=== PATIENT | male | born 1940 | race Caucasian/White ===

== ENCOUNTER → 2019-10-27 11:44 | Outpatient (BNVA) | payer MEDICARE, SELFPAY | PROVIDERS: PCP Physician Assistant Medical; Visit Provider Nurse Practitioner Family | DX: N13.8 Other obstructive and reflux uropathy (principal); N40.1 Benign prostatic hyperplasia with lower urinary tract symptoms; R30.0 Dysuria; N41.1 Chronic prostatitis | CPT/HCPCS: 80053; 81001 ==

== ENCOUNTER → 2020-05-01 13:01 | Outpatient (BNVA) | payer MEDICARE, SELFPAY | PROVIDERS: PCP Physician Assistant Medical; Visit Provider Urology | DX: N40.1 Benign prostatic hyperplasia with lower urinary tract symptoms (principal); N13.8 Other obstructive and reflux uropathy; N41.1 Chronic prostatitis | CPT/HCPCS: 81003 ==

== ENCOUNTER → 2021-05-06 13:26 | Outpatient (BNVA) | payer MEDICARE, SELFPAY | PROVIDERS: PCP Physician Assistant Medical; Visit Provider Urology | DX: N40.1 Benign prostatic hyperplasia with lower urinary tract symptoms (principal); N13.8 Other obstructive and reflux uropathy | CPT/HCPCS: 81003 ==

== ENCOUNTER → 2021-11-04 13:49 | Outpatient (BNVA) | payer MEDICARE, SELFPAY | PROVIDERS: PCP Registered Nurse; Visit Provider Urology | DX: N40.1 Benign prostatic hyperplasia with lower urinary tract symptoms (principal); N13.8 Other obstructive and reflux uropathy; N41.1 Chronic prostatitis | CPT/HCPCS: 51798; 81003; 99213 ==

== ENCOUNTER 2023-07-29 11:19 | Inpatient (IN) | payer MEDICARE, MEDICAID, SELFPAY ==
[2023-07-29 11:21] VITALS: BP 93/60; PULSE 95; RESP 18; TEMP 37.5; O2SAT 94; BMI 28.8
--- NOTE | 2023-07-29 11:25 | XRR_ITS ---
PROCEDURE INFORMATION: Exam: XR Chest Exam date and time: 07/29/2023 12:22 PM Age: 82 years old Clinical indication: Cough and dyspnea; Additional info: Dyspnea/cough TECHNIQUE: Imaging protocol: Radiologic exam of the chest. Views: 1 view. COMPARISON: [place] [id number] 07/29/2023 12:22 PM FINDINGS: Lungs: Scattered tiny nodules are seen in the upper lungs bilaterally. There is a 5 mm nodule projecting over the right lower lung. There is 6 mm nodule projecting over the left mid lung. There is no focal consolidation. There is hazy opacity projecting over the lower lungs bilaterally. Pleural spaces: There is no pleural effusion or pneumothorax. Heart/Mediastinum: Cardiomediastinal contours are unremarkable. Bones/joints: There is a healed right lateral 6th rib fracture. XR/XR chest 1V portable [id number] IMPRESSION: 1. Hazy opacity projecting over the lower lungs bilaterally may represent soft tissue density overlying the chest versus infection, atelectasis or pleural fluid. Recommend follow-up PA and lateral chest radiographs. 2. Scattered bilateral pulmonary nodules. Recommend nonemergent chest CT.
[2023-07-29 11:38] LABS: Glucose Point of Care 424 mg/dL (70-110)
--- NOTE | 2023-07-29 11:41 | ED_ITS ---
HPI - Fall 2 General: Chief Complaint: Fall Stated Complaint: hyperglycemia, fall 2 days Time Seen by Provider: 07/29/23 11:21 Source: patient Mode of arrival: EMS History of Present Illness: 82-year-old male presents emergency room via EMS he fell 2 days ago and has been laying on the floor since then. He was found down on the bathroom floor by his home health caregiver. He has a history of diabetes mellitus. He states he fell because he got dizzy and stumbled. He did not strike his head there is no loss of consciousness. He is on Plavix and aspirin but no other anticoagulants. States he generally feels sore over but has no particular areas of pain large amount of ecchymosis on the left shoulder and arm with some abrasions and skin tears on the hands. Patient denies any chest pain at this time. MD complaint: fall Onset (ago): day(s) (2) Fall from: standing Fall witnessed: no Place fall occurred: home Loss of consciousness: Unsure Prolonged down time: yes Symptoms prior to fall: lightheadedness and dizziness Location of injury: head Location of injury - extremities: Left: shoulder and Bilateral: arm, elbow, forearm and hand Associated symptoms-after fall: Denies abdominal pain, chest pain, confusion, difficulty walking, headache(s), hematuria, lightheadedness, neck pain, numbness, short of breath, vertigo or weakness Review of Systems 2 Const: Denies: fever(s) or chills Card: Denies: chest pain or lightheadedness Resp: Denies: dyspnea GI: Denies: abdominal pain : Denies: dysuria, urinary frequency, urinary urgency or hematuria Musc: Denies: neck pain or back pain Skin/Breast: Denies: rash Neuro: Denies: headache(s), difficulty walking, vertigo or confusion PFSH ED 2 PFSH: Medical History (Updated 08/02/23 @ 07:17 by Antoine Alejandro DO) Lymphoma Ulcerative colitis History of myocardial infarction SVT (supraventricular tachycardia) Hypertension Nocturnal hypoxemia Morbid obesity due to excess calories Hyperlipemia GERD (gastroesophageal reflux disease) Gastroparesis Venous stasis dermatitis WENDY (obstructive sleep apnea) Hypothyroidism Chronic diastolic heart failure Chronic atrial fibrillation Type 2 diabetes mellitus BPH with urinary obstruction Chronic prostatitis Surgical History History of colonoscopy with polypectomy Hx of cholecystectomy Hx of heart artery stent Hx of bilateral cataract extraction Family History Mother , AT AGE 59 BONE CANCER Cancer Father , AT AGE 95 Congestive heart failure Social History Smoking and tobacco/nicotine status: former use of tobacco/nicotine Alcohol intake: never Substance/Drug Use: unknown Adopted: No Caregiver/support person: No Lives independently: No Household members: spouse Marital status: Current occupational status: retired Current gender identity: Male Physical Exam 2 Const: GENERAL APPEARANCE: cooperative and comfortable O RIENTATION/CONSCIOUSNESS: Yes awake, Yes oriented to person, Yes oriented to place and Yes oriented to time HENMT: COMMON NORMALS: normocephalic and hearing grossly normal bilaterally HEAD & SCALP: normocephalic Resp: COMMON NORMALS: normal respiratory effort, No retractions, No use of accessory muscles and clear to auscultation bilaterally AUSCULTATION: clear to auscultation bilaterally Cardio: COMMON NORMALS: regular rate, regular rhythm and No murmurs present (Cardio) RATE: regular rate RHYTHM: regular rhythm GI: COMMON NORMALS: Soft to palpation and No hepatosplenomegaly present A USCULTATION: Yes normoactive bowel sounds PALPATION: Yes Soft to palpation, No Tenderness to palpation present (GI), No Guarding due to palpation present (GI) and Yes No hepatosplenomegaly present Extremity: COMMON NORMALS: capillary refill normal, no clubbing, cyanosis or edema, no calf tenderness and no pedal edema OTHER: Multiple skin tears and abrasions particular on the left side arms and legs. Neuro: SENSORIUM/ORIENTATION: Yes oriented to person, Yes oriented to place and Yes oriented to time Skin: OTHER: Multiple skin tears and abrasions on the arms forearms noticeable ecchymosis. No active bleeding no full-thickness lacerations Course 2 Vital Signs: Vital signs: Vital Signs Temperature 97.9 F 08/02/23 04:00 Pulse Rate 90 08/02/23 06:00 Respiratory Rate 16 08/02/23 04:00 Blood Pressure 125/69 08/02/23 04:00 Pulse Oximetry 95 08/02/23 04:00 Oxygen Delivery Me thod Nasal Cannula 08/01/23 20:48 Oxygen Flow Rate 6 08/01/23 20:48 MDM - Fall Medical Decision Making Rhabdomyolysis with elevated CPK. Also concern for possible pneumonia. White count is markedly elevated with significantly increased lymphocyte count I contacted Dr. Sarah reviewed the case with him he did not feel transfer was needed. He recommended admission with treatment for the acute problems with the fall and further evaluation for the elevated white count at a later time. He initially expects chronic lymphocytic leukemia. Chest x-ray questionable left lower lobe pneumonia x-rays of the shoulder and humerus negative for acute fracture. Initial EKG shows atrial fibrillation with a well-controlled rate Medical Records I reviewed the patient's medical records. Lab Data I reviewed the patient's lab results. 08/02/23 04:33 08/02/23 04:33 Radiology Impressions Humerus X-Ray 07/29/23 11:55 IMPRESSION: No acute findings. Shoulder X-Ray 07/29/23 11:55 IMPRESSION: No acute findings. Abdomen/Pelvis CT 07/29/23 14:06 IMPRESSION: 1. Left lower lobe consolidative pneumonia. 2. Extensive adenopathy, likely lymphoma. COMMENTS: Consistent with the [employer]'s Incidental Findings Committee white paper (J Am Jake Radiol 2018): Any incidental renal lesion less than 1 cm or classified as too small to characterize, or any incidental cystic renal lesion characterized as simple-appearing, is likely benign. No follow-up imaging is recommended for these lesions per consensus recommendations based on imaging criteria. Head CT 07/29/23 14:06 IMPRESSION: No acute intracranial abnormality. Chest X-Ray 07/31/23 05:05 IMPRESSION: Left lower lobe pneumonia. Laboratory Results WBC 127.86 10^3/uL (3.29-11.43) H* 07/29/23 12:04 RBC 3.93 10^6/uL (3.85-5.65) 07/29/23 12:04 Hgb 11.30 g/dL (11.27-16.99) 07/29/23 12:04 Hct 36.1 % (37-53) L 07/29/23 12:04 MCV 91.9 fl (82-101) 07/29/23 12:04 MCH 28.8 pg (27-33) 07/29/23 12:04 MCHC 31.3 g/dL (30-55) 07/29/23 12:04 RDW 15.0 % (12.1-15.1) 07/29/23 12:04 Plt Count 285 10^3/cmm (157-399) 07/29/23 12:04 MPV 10.3 fL (7.4-10.4) 07/29/23 12:04 Neut % (Auto) 14.7 % 07/29/23 12:04 Lymph % (Auto) 83.0 % 07/29/23 12:04 [place] % (Auto) 1.4 % 07/29/23 12:04 Eos % (Auto) 0.0 % 07/29/23 12:04 Baso % (Auto) 0.0 % 07/29/23 12:04 Neut # (Auto) 18.83 10^3/uL (1.8-7.7) H 07/29/23 12:04 Lymph # (Auto) 106.1 10^3/uL (0.8-4.8) H 07/29/23 12:04 [place] # (Auto) 1.8 10^3/uL (0.2-0.9) H 07/29/23 12:04 Eos # (Auto) 0.0 10^3/uL (0.0-0.8) 07/29/23 12:04 Baso # (Auto) 0.0 10^3/uL (0.0-0.1) 07/29/23 12:04 Nucleated RBC % (auto) 0 % 07/29/23 12:04 Nucleated RBCs # 0.0 /100WBC 07/29/23 12:04 Peripher Smr Path Cons Sent for review 07/29/23 12:04 Specimen Type Arterial 07/29/23 11:32 Sample Site Radial, left 07/29/23 11:32 ABG pH 7.36 (7.35-7.45) 07/29/23 11:32 ABG pCO2 29.9 mmHg (35-45) L 07/29/23 11:32 ABG pO2 64.3 mmHg (80.0-100.0) L 07/29/23 11:32 ABG PO2/FiO2 Ratio 0 07/29/23 11:32 ABG HCO3 17.0 mmol/L (22-26) L 07/29/23 11:32 ABG O2 Saturation 92.2 07/29/23 11:32 ABG Base Excess -7.4 mmol/L (-2.0-2.0) L 07/29/23 11:32 Genaro Test Pos 07/29/23 11:32 A-a O2 Gradient 16.2 mmHg (5-10) H 07/29/23 11:32 Hematocrit 32.4 % (42-52) L 07/29/23 11:32 Hgb O2 Saturation 91.0 % (95-100) L 07/29/23 11:32 Carboxyhemoglobin 1.1 %THgb (0.4-20.1) 07/29/23 11:32 Methemoglobin 0.3 % (0.4-1.5) L 07/29/23 11:32 Total Hemoglobin 10.6 g/dL (14-18) L 07/29/23 11:32 Sodium 130.0 mmol/L (131-143) L 07/29/23 11:32 Potassium 4.3 mmol/L (3.5-5.0) 07/29/23 11:32 Glucose 402.0 mg/dL (70-115) H 07/29/23 11:32 Ionized Calcium 1.1 mmol/L (1.1-1.4) 07/29/23 11:32 O2 Delivery Device Nc 07/29/23 11:32 O2 Liters/Min 3.0 % 07/29/23 11:32 FiO2 32.0 % 07/29/23 11:32 Composer Teaching Artist ID Cak 07/29/23 11:32 Sodium 131 mmol/L (136-145) L 07/29/23 12:04 Potassium 4.7 mmol/L (3.5-5.1) 07/29/23 12:04 Chloride 91 mmol/L (98-107) L 07/29/23 12:04 Carbon Dioxide 17 mmol/L (22-29) L 07/29/23 12:04 Anion Gap 27.7 (5-19) H 07/29/23 12:04 BUN 94 mg/dL (8-23) H* 07/29/23 12:04 Creatinine 3.0 mg/dL (0.7-1.2) H 07/29/23 12:04 GFR Calculation Not Reportable 07/29/23 12:04 Glucose 412 mg/dL (65-115) H 07/29/23 12:04 POC Glucose 424 mg/dL (70-110) H 07/29/23 11:34 Estimat Average Glucose 157 07/29/23 12:04 Hemoglobin A1c 7.1 % (4.0-6.0) H 07/29/23 12:04 Calculated Osmolality 318 mOsm/kg (285-295) H 07/29/23 12:04 Lactic Acid 2.1 mmol/L (0.5-2.2) 07/29/23 12:04 Calcium 8.7 mg/dL (8.5-10.5) 07/29/23 12:04 Magnesium 2.7 mg/dL (1.7-2.3) H 07/29/23 12:04 Total Bilirubin 0.6 mg/dL (0.15-1.2) 07/29/23 12:04 AST 23 U/L (0-40) 07/29/23 12:04 ALT 15 U/L (0-41) 07/29/23 12:04 Alkaline Phosphatase 95 U/L (40-130) 07/29/23 12:04 Lactate Dehydrogenase 284 U/L (135-225) H 07/29/23 12:04 Creatine Kinase 447 U/L (39-308) H* 07/29/23 12:04 Total Protein 7.3 g/dL (6.6-8.7) 07/29/23 12:04 Albumin 3.5 g/dL (3.5-5.2) 07/29/23 12:04 Globulin 3.8 g/dL (1.3-4.6) 07/29/23 12:04 Lipase 21 U/L (13-60) 07/29/23 12:04 Vitamin B12 259 pg/mL (232-1245) 07/29/23 12:02 Urine Color Yellow (Yellow) 07/29/23 11:58 Urine Appearance Sl hazy (CLEAR) A 07/29/23 11:58 Urine pH 5 (5-7) 07/29/23 11:58 Ur Specific [place] 1.020 (1.005-1.030) 07/29/23 11:58 Urine Protein 2+ (Negative) H 07/29/23 11:58 Urine Glucose (UA) 2+ (Normal) H 07/29/23 11:58 Urine Ketones Negative (Negative) 07/29/23 11:58 Urine Blood 3+ (Negative) H 07/29/23 11:58 Urine Nitrate Negative (Negative) 07/29/23 11:58 Urine Bilirubin Neg (Negative) 07/29/23 11:58 Urine Urobilinogen Neg mg/dL (Negative) 07/29/23 11:58 Ur Leukocyte Esterase Negative (Negative) 07/29/23 11:58 Urine RBC 5-10 /hpf (0-2) H 07/29/23 11:58 Urine WBC 0-4 /hpf (0-5) H 07/29/23 11:58 Ur Squamous Epith Cells 0-4 /hpf (0-5) H 07/29/23 11:58 Amorphous Sediment 1+ /hpf 07/29/23 11:58 Urine Bacteria 2+ /hpf (NONE) H 07/29/23 11:58 Hyaline Casts 0-4 /lpf H 07/29/23 11:58 Coarse Granular Casts 5-10 /lpf H 07/29/23 11:58 Urine Mucus Trace /hpf 07/29/23 11:58 Serum Ketones Negative (Negative) 07/29/23 12:04 All radiology interpretation(s) finalized by discharge Discharge Plan Discharge Patient Disposition: Admitted As Inpatient Admit Provider: Korey Saeed Clinical Impression: Fall, CLL (chronic lymphocytic leukemia), ROSCOE (acute kidney injury), High anion gap metabolic acidosis, Pneumonia, Rhabdomyolysis, Atrial fibrillation Condition: Stable Coding Level of Care Code ED 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
[2023-07-29 11:43] LABS: ABG PCO2 29.9 mmHg (35-45); ABG PH Result 7.36 (7.35-7.45); Alveolar-Arterial Oxygen Gradi 16.2 mmHg (5-10); Arterial Blood Gas Hematocrit 32.4 % (42-52); Base Excess ABG -7.4 mmol/L (-2.0-2.0); Blood Gas Allen Test Pos; Blood Gas Operator Identificat CAK; Blood Gas Sample Site Radial, left; Blood Gas Sample Type Arterial; Carboxyhemoglobin 1.1 %THgb (0.4-20.1); Ionized Calcium Level - ABG 1.1 mmol/L (1.1-1.4); Methemoglobin 0.3 % (0.4-1.5); Oxygen Device NC; Oxygen Saturation ABG 92.2; PO2 ABG 64.3 mmHg (80.0-100.0); PO2 FiO2 Ratio Arterial Blood 0; Potassium Level - ABG 4.3 mmol/L (3.5-5.0); Total Hemoglobin 10.6 g/dL (14-18)
--- NOTE | 2023-07-29 11:55 | XRR_ITS ---
PROCEDURE INFORMATION: Exam: XR Left Humerus Exam date and time: 07/29/2023 12:22 PM Age: 82 years old Clinical indication: Injury or trauma; Fall; Blunt trauma (contusions or hematomas); Arm, upper; Left; Additional info: Pain TECHNIQUE: Imaging protocol: Radiologic exam of the left humerus. Views: 2 or more views. COMPARISON: CR XR shoulder LT min 2V* [id number] 07/29/2023 12:22 PM FINDINGS: Bones/joints: Shoulder and elbow alignment are normal. AC joint alignment is normal. Moderate AC joint arthritis. No visible fracture. Soft tissues: Visible soft tissues are unremarkable. XR/[place] [id number] IMPRESSION: No acute findings.
--- NOTE | 2023-07-29 11:55 | XRR_ITS ---
PROCEDURE INFORMATION: Exam: XR Left Shoulder Exam date and time: 07/29/2023 12:22 PM Age: 82 years old Clinical indication: Injury or trauma; Fall; Blunt trauma (contusions or hematomas); Shoulder; Left TECHNIQUE: Imaging protocol: Radiologic exam of the left shoulder. Views: 2 or more views. COMPARISON: [place] [id number] 07/29/2023 12:22 PM FINDINGS: Bones/joints: Alignment is normal. No acute fracture. Moderate AC joint arthritis. Glenohumeral joint is suboptimally evaluated without Grashey or axillary views. Glenoid osteophytes are suspected. Soft tissues: Visible soft tissues are unremarkable. XR/XR shoulder LT min 2V* [id number] IMPRESSION: No acute findings.
[2023-07-29 12:11] LABS: Hematocrit 36.1 % (37-53); Mean Corpuscular HGB Conc 31.3 g/dL (30-55); Mean Corpuscular Hemoglobin 28.8 pg (27-33); Mean Corpuscular Volume 91.9 fl (82-101); Mean Platelet Volume 10.3 fL (7.4-10.4); Monocytes # 1.8 10^3/uL (0.2-0.9); Monocytes % 1.4 %; Neutrophils # 18.83 10^3/uL (1.8-7.7); Neutrophils % 14.7 %; Nucleated Red Blood Cells % 0 %; Platelet Count 285 10^3/cmm (157-399); Red Blood Count 3.93 10^6/uL (3.85-5.65)
[2023-07-29] MEDS: tetanus-dipt-pertussis 0.5 mL SDV IM (12:20)
[2023-07-29 12:30] LABS: Ketone (Acetest) Serum Negative (Negative)
[2023-07-29 12:31] LABS: Alanine Aminotransferase 15 U/L (0-41); Albumin Level 3.5 g/dL (3.5-5.2); Alkaline Phosphatase 95 U/L (40-130); Anion Gap 27.7 (5-19); Aspartate Amino Transferase 23 U/L (0-40); Calcium 8.7 mg/dL (8.5-10.5); Carbon Dioxide 17 mmol/L (22-29); Chloride 91 mmol/L (98-107); Globulin 3.8 g/dL (1.3-4.6); Glucose 412 mg/dL (65-115); Lactic Sepsis W/Reflex 2.1 mmol/L (0.5-2.2); Lipase 21 U/L (13-60); Magnesium 2.7 mg/dL (1.7-2.3); Osmolality Calculated 318 mOsm/kg (285-295); Potassium 4.7 mmol/L (3.5-5.1); Sodium 131 mmol/L (136-145); Total Bilirubin 0.6 mg/dL (0.15-1.2); Total Protein 7.3 g/dL (6.6-8.7)
[2023-07-29 12:34] LABS: Blood Urea Nitrogen 94 mg/dL (8-23); Creatine Phosphokinase 447 U/L (39-308)
[2023-07-29 12:44] LABS: Lymphocytes # 106.1 10^3/uL (0.8-4.8); White Blood Count 127.86 10^3/uL (3.29-11.43)
[2023-07-29 12:47] LABS: Slide Review Slide Review Perform
[2023-07-29 12:54] LABS: Protein Urine 2+ (Negative); Urine Appearance SL Hazy (CLEAR); Urine Color Yellow (Yellow); pH Urine 5 (5-7)
[2023-07-29 12:55] LABS: Add Urine Microscopic? YES; Bilirubin Urine Neg (Negative); Blood Urine 3+ (Negative); Glucose Urine UA 2+ (Normal); Ketones Urine Negative (Negative); Leukocyte Esterase Urine Negative (Negative); Nitrate Urine Negative (Negative); Urobilinogen Urine Neg (Negative)
[2023-07-29 12:57] VITALS: BP 131/49; PULSE 100; O2SAT 91
[2023-07-29 12:57] LABS: Amorphous Sediment Urine 1+ /hpf; Bacteria Urine 2+ /hpf; Mucus Urine TRACE /hpf; Squamous Epithelial Cell Urine 0-4 /hpf (0-5); WBC Urine 0-4 /hpf (0-5)
[2023-07-29 12:58] LABS: Add Urine Culture? Yes; Hyaline Casts Urine 0-4 /lpf
[2023-07-29 13:00] VITALS: BP 107/65; PULSE 96; O2SAT 92
[2023-07-29 13:56] LABS: Reflex Lactate Order REFLEX LACTIC ORDERD
--- NOTE | 2023-07-29 14:06 | CTR_ITS ---
PROCEDURE INFORMATION: Exam: CT Abdomen And Pelvis Without Contrast Exam date and time: 07/29/2023 2:42 PM Age: 82 years old Clinical indication: Injury or trauma; Fall; Blunt; Generalized; Injury date: 2 days ago; Additional info: Flank pain TECHNIQUE: Imaging protocol: Computed tomography of the abdomen and pelvis without contrast. Radiation optimization: All CT scans at this facility use at least one of these dose optimization techniques: automated exposure control; mA and/or kV adjustment per patient size (includes targeted exams where dose is matched to clinical indication); or iterative reconstruction. COMPARISON: CR XR chest 1V portable [id number] 07/29/2023 12:22 PM RADIATION DOSE METRICS: Total DLP (mGy-cm): 875 FINDINGS: Lungs: Left lower lobe consolidative pneumonia. Liver: Normal. No mass. Gallbladder and bile ducts: Cholecystectomy. Pancreas: Normal. No ductal dilation. Spleen: Borderline 12 cm splenomegaly. Adrenal glands: Normal. No mass. Kidneys and ureters: Bilateral renal cysts. Bilateral nonobstructing renal calculi. Stomach and bowel: Unremarkable. No obstruction. No mucosal thickening. Appendix: No evidence of appendicitis. Intraperitoneal space: Unremarkable. No free air. No significant fluid collection. Vasculature: Extensive arterial calcifications. Lymph nodes: There is marked periaortic, mesenteric, bilateral inguinal, and pelvic sidewall adenopathy. It is difficult to differentiate the mesenteric adenopathy from unopacified bowel. The largest single lymph node is in the right lower pelvis and measures 7.2 x 2.5 cm in size. Urinary bladder: Unremarkable as visualized. Reproductive: Unremarkable as visualized. Bones/joints: See Lymph nodes finding. Soft tissues: Unremarkable. CT/CT kidney stone [id number] IMPRESSION: 1. Left lower lobe consolidative pneumonia. 2. Extensive adenopathy, likely lymphoma. COMMENTS: Consistent with the [employer]'s Incidental Findings Committee white paper (J Am Jake Radiol 2018): Any incidental renal lesion less than 1 cm or classified as too small to characterize, or any incidental cystic renal lesion characterized as simple-appearing, is likely benign. No follow-up imaging is recommended for these lesions per consensus recommendations based on imaging criteria.
--- NOTE | 2023-07-29 14:06 | CTR_ITS ---
PROCEDURE INFORMATION: Exam: CT Head Without Contrast Exam date and time: 07/29/2023 2:38 PM Age: 82 years old Clinical indication: Injury or trauma; Fall; Blunt trauma (contusions or hematomas); Additional info: Fall/ams TECHNIQUE: Imaging protocol: Computed tomography of the head without contrast. Radiation optimization: All CT scans at this facility use at least one of these dose optimization techniques: automated exposure control; mA and/or kV adjustment per patient size (includes targeted exams where dose is matched to clinical indication); or iterative reconstruction. COMPARISON: No relevant prior studies available. RADIATION DOSE METRICS: Total DLP (mGy-cm): 1081.98 FINDINGS: Brain: There is diffuse cerebral atrophy and chronic microvascular white matter disease. There is no significant mass effect or midline shift. There is no acute intracranial hemorrhage. Cerebral ventricles: There is moderate ex vacuo dilation of the lateral ventricles. Basal cisterns are unremarkable. Paranasal sinuses: The paranasal sinuses are clear. Mastoid air cells: Trace bilateral mastoid effusion. Bones/joints: The calvarium is intact. Soft tissues: The visible extracranial soft tissues are unremarkable. CT/CT head wo con* [id number] IMPRESSION: No acute intracranial abnormality.
[2023-07-29 14:21] LABS: Lactate Dehydrogenase 284 U/L (135-225)
[2023-07-29] MEDS: sodium chloride 0.9% 1,000 ML 999 ML IV (14:22)
[2023-07-29 14:30] VITALS: BP 144/54; PULSE 94; O2SAT 91
[2023-07-29 14:53] LABS: Lactic Acid level (Lactate) 1.8 mmol/L (0.5-2.2)
--- NOTE | 2023-07-29 14:59 | PM.HP ---
Providers/Chief Complaint Primary Care Provider: Jessi Trinidad Chief Complaint: hyperglycemia, fall 2 days History of Present Illness Mr. Matos is a very pleasant 82-year-old male old with no previous history of CLL, lives alone, history of coronary disease takes aspirin and Plavix, no history of stroke, no major surgeries has been dealing with some nausea vomiting generalized weakness abdominal discomfort and earache with some worsening of deafness lately. Today he presents to the hospital after sustaining a fall on Wednesday at 2 AM, patient is stating that last thing he remembers is that he woke up around 2 AM went to the bathroom and fell. His friend found him on the floor and brought him to the hospital today he has been diagnosed with rhabdomyolysis with concern for CLL. ER physician was concerned about worsening of rhabdomyolysis wanted hospitalist to admit the patient When I evaluated the patient my concern was related to hyperviscosity syndrome considering recent worsening of earache, hearing deficit, vertigo, nystagmus, recent fall patient is stating that he has blurry vision but it could be something chronic he is blaming his blurry vision to use of wrong glasses There is no previous diagnosis of CLL as per the family. They are upset stating that they were not heard very well in the ER. I told the family that I will call our clerical methods analyst/oncologist Dr. Sarah to discuss this case and will be able to transfer him out if leukapheresis is indicated for hyperviscosity syndrome At the time of my evaluation patient does not complain of any chest pain or shortness of breath currently is on 1.5 L nasal cannula, he has multiple bruises ecchymosis to left side of his body Review of Systems Const: Reports: chills; Denies: fever(s) Eyes: Denies: change in vision ENMT: Denies: throat pain Card: Denies: chest pain Resp: Reports: dyspnea GI: Reports: nausea and vomiting; Denies: abdominal pain : Denies: flank pain Medications/Allergies Home Medications Medication Instructions Recorded Confirmed Last Taken Type allopurinol 100 mg tablet 100 mg PO DAILY 09/12/19 07/29/23 Unknown History aspirin 81 mg tablet,delayed 81 mg PO DAILY 09/12/19 07/29/23 Unknown History release clopidogrel 75 mg tablet (Plavix) 75 mg PO DAILY 09/12/19 07/29/23 Unknown History esomeprazole magnesium 40 mg 40 mg PO DAILY 09/12/19 07/29/23 Unknown History capsule,delayed release fluticasone propionate 50 1 spray intranasal DAILY 09/12/19 07/29/23 Unknown History mcg/actuation nasal spray,suspension gabapentin 400 mg capsule 400 mg PO DAILY 09/12/19 07/29/23 Unknown History glipizide 10 mg tablet 10 mg PO DAILY 09/12/19 07/29/23 Unknown History insulin human U-100 NPH-regulr 50 unit SUBCUT DAILY 09/12/19 07/29/23 Unknown History 70-30 mix 100 unit/mL subcutaneous susp (Humulin 70/30 U-100 Insulin) levothyroxine 100 mcg capsule 100 mcg PO DAILY 09/12/19 07/29/23 Unknown History nitroglycerin 0.4 mg/hr 1 patch transdermal DAILY 09/12/19 07/29/23 Unknown History transdermal 24 hour patch (Nitro-Dur) spironolactone 25 mg tablet 25 mg PO DAILY 09/12/19 07/29/23 Unknown History bumetanide 1 mg tablet 1 mg PO BID 05/01/20 07/29/23 Unknown History finasteride 5 mg tablet 5 mg PO DAILY #90 tabs 05/29/22 07/29/23 Unknown Rx alfuzosin 10 mg tablet,extended 10 mg PO DAILY 07/29/23 07/29/23 Unknown History release 24 hr cetirizine 10 mg tablet 10 mg PO DAILY 07/29/23 07/29/23 Unknown History Allergies Allergy/AdvReac Type Severity Reaction Status Date / Time cefaclor AdvReac Intermediate ADR-Itching Verified 07/29/23 14:24 Penicillins AdvReac Intermediate ADR-Itching Verified 07/29/23 14:24 Sulfa (Sulfonamide AdvReac Intermediate ADR-Itching Verified 07/29/23 14:24 Antibiotics) PFSH Acute PFSH: Medical History (Updated 07/29/23 @ 19:25 by Korey Saeed MD) Hypertension Nocturnal hypoxemia Morbid obesity due to excess calories Hyperlipemia GERD (gastroesophageal reflux disease) Gastroparesis Venous stasis dermatitis WENDY (obstructive sleep apnea) Hypothyroidism Chronic diastolic heart failure Chronic atrial fibrillation Type 2 diabetes mellitus BPH with urinary obstruction Chronic prostatitis Surgical History History of colonoscopy with polypectomy Hx of cholecystectomy Hx of heart artery stent Hx of bilateral cataract extraction Family History Mother , AT AGE 59 BONE CANCER Cancer Father , AT AGE 95 Congestive heart failure Social History Smoking and tobacco/nicotine status: former use of tobacco/nicotine Alcohol intake: never Substance/Drug Use: unknown Adopted: No Caregiver/support person: No Lives independently: No Household members: spouse Marital status: Current occupational status: retired Current gender identity: Male Vitals/I&O/Wt Last Vital Signs Temp 99.5 F 07/29/23 11:21 Pulse 94 07/29/23 14:30 Resp 18 07/29/23 11:21 BP 144/54 07/29/23 14:30 Pulse Ox 91 07/29/23 14:30 O2 Del Method Nasal Cannula 07/29/23 14:30 O2 Flow Rate 3 07/29/23 14:30 Weight last 48 hrs Weight 86.183 kg Physical Exam Narrative: Patient is oriented to himself Pleasant and cooperative Nonfocal neuroexam Multiple ecchymosis and petechia lower left side No active fracture S1, S2 Currently 1.5 L No abdominal distention or pain Splenomegaly Lower extremity no swelling noted Family is at the bedside Patient is very hard of hearing Taking time to answer questions Data 07/29/23 12:04 07/29/23 12:04 A&P Assessment and plan (1) Lymphoma: (2) CLL (chronic lymphocytic leukemia): (3) ROSCOE (acute kidney injury): (4) Dehydrated hereditary stomatocytosis: (5) Hyperglycemia: (6) High anion gap metabolic acidosis: (7) Chronic prostatitis: (8) BPH with urinary obstruction: (9) Peripheral neuropathy: (10) Diabetic neuropathy: (11) Pneumonia: Plan Significant leukocytosis Multiple lymph nodes noted on chest abdomen pelvis along splenomegaly Concern related to lymphoma versus CLL My concern is related to hyperviscosity signs and symptoms which will need leukapheresis Case discussed with Dr. Sarah He is coming from home to read peripheral smear I will arrange transfer if leukapheresis is indicated here is marked periaortic, mesenteric, bilateral inguinal, and pelvic sidewall adenopathy. It is difficult to differentiate the mesenteric adenopathy from unopacified bowel. The largest single lymph node is in the right lower pelvis and measures 7.2 x 2.5 cm in size. Rhabdomyolysis Aggressive fluid hydration ROSCOE I do not have previous BMP to compare his creatinine, creatinine is 3.0 No sign obstruction Patient does not want Hernandez catheter placement Diastolic CHF history: Hold Lasix Coronary disease history of he takes aspirin and Plavix considering significant ecchymosis petechiae of left side of his body I would hold for tonight Hyperglycemia high metabolic acidosis Ketones negative Would use consistent carb diet with insulin sliding scale check A1c level Community-acquired pneumonia Start ceftriaxone and doxycycline New onset atrial flutter I will hold off on Eliquis in case patient requires any invasive procedure for leukapheresis Will control medications [id number] Full code Consistent carb diet Multiple family meetings after Spoke with Dr. Sarah Spoke with Dr. Sarah he is looking at bland lymphocytes on peripheral smear LDH around 284 he is not concerned about lymphoma related to hyperviscosity at this point recommending treatment for pneumonia and outpatient workup for CLL . Attestations Medical Necessity Statement*: Than 2 midnights anticipated Coding Level of Care Code 91568 High Time for a total of 90 minutes, includes reviewing past or interval history, examining/interviewing patient, placing orders, counseling patient/family/other support, updating patient/family/other support, discussing plan of care with staff, communicating with other healthcare providers, documenting encounter and coordinating care Diagnoses Lymphoma C85.90 CLL (chronic lymphocytic leukemia) C91.10 ROSCOE (acute kidney injury) N17.9 Dehydrated hereditary stomatocytosis D58.8 Hyperglycemia R73.9 High anion gap metabolic acidosis E87.29 Chronic prostatitis N41.1 BPH with urinary obstruction N40.1; N13.8 Peripheral neuropathy G62.9 Diabetic neuropathy E11.40 Pneumonia J18.9
[2023-07-29 15:59] VITALS: BP 145/73; PULSE 101; O2SAT 91
--- NOTE | 2023-07-29 17:00 | PC.NURSE ---
Patient refused Hernandez Catheter placement and Telemetry and SCD placement. Patient is A&Ox3
[2023-07-29 17:23] LABS: Vitamin B12 259 pg/mL (232-1245)
[2023-07-29] MEDS: sodium chloride 0.9% 1,000 ML 75 ML IV (18:25)
[2023-07-29] MEDS: heparin 5,000 unit/mL INJ 1 mL 5000 UNIT SUBCUT (18:26)
[2023-07-29 18:31] LABS: Glucose Point of Care 333 mg/dL (70-110)
[2023-07-29] MEDS: insulin lispro 100 unit/1 mL SUBCUT (18:31)
[2023-07-29 18:37] VITALS: BMI 28.8
[2023-07-29 19:39] LABS: LAB Peripheral Smear Sent for Review
[2023-07-29 20:00] VITALS: BP 145/64; PULSE 105; RESP 22; TEMP 37.7; O2SAT 90
[2023-07-29 21:10] LABS: Lactate Dehydrogenase 276 U/L (135-225)
[2023-07-29] MEDS: metoprolol tartrate 25 mg Tablet PO (21:14)
[2023-07-29] MEDS: insulin glargine 100 units/1 mL 10 UNIT SUBCUT (21:14)
[2023-07-29 21:45] LABS: Glucose Point of Care 210 mg/dL (70-110)
[2023-07-29 22:20] LABS: Estmated Average Glucose 157; Hemoglobin A1C 7.1 % (4.0-6.0)
[2023-07-30] VITALS (10 sets, daily range): BP systolic 128–173; BP diastolic 63–70; PULSE 63–121; RESP 16–24; TEMP 36.4–38.1; O2SAT 87–98; BMI 29.8
[2023-07-30] MEDS: heparin 5,000 unit/mL INJ 1 mL 5000 UNIT SUBCUT ×2 (05:08→18:08)
[2023-07-30 06:32] LABS: Hematocrit 32.8 % (37-53); Lymphocytes # 98.8 10^3/uL (0.8-4.8); Lymphocytes % 84.1 %; Mean Corpuscular HGB Conc 31.4 g/dL (30-55); Mean Corpuscular Hemoglobin 28.4 pg (27-33); Mean Corpuscular Volume 90.4 fl (82-101); Mean Platelet Volume 10.5 fL (7.4-10.4); Monocytes # 1.3 10^3/uL (0.2-0.9); Monocytes % 1.1 %; Neutrophils # 16.26 10^3/uL (1.8-7.7); Neutrophils % 13.8 %; Nucleated Red Blood Cells % 0 %; Platelet Count 259 10^3/cmm (157-399); Red Blood Count 3.63 10^6/uL (3.85-5.65); Red Cell Distribution Width 15.5 % (12.1-15.1)
[2023-07-30 06:47] LABS: Anion Gap 24.9 (5-19); Calcium 8.4 mg/dL (8.5-10.5); Carbon Dioxide 16 mmol/L (22-29); Chloride 97 mmol/L (98-107); Glucose 157 mg/dL (65-115); Magnesium 2.7 mg/dL (1.7-2.3); Osmolality Calculated 309 mOsm/kg (285-295); Potassium 4.9 mmol/L (3.5-5.1); Sodium 133 mmol/L (136-145)
[2023-07-30 07:10] LABS: Blood Urea Nitrogen 97 mg/dL (8-23); Phosphorus 7.9 mg/dL (2.5-4.5)
[2023-07-30 07:11] LABS: C Reactive Protein 540.9 mg/L (0.0-4.9); Creatine Phosphokinase 1201 U/L (39-308)
[2023-07-30 07:13] LABS: Slide Review Slide Review Perform; White Blood Count 117.45 10^3/uL (3.29-11.43)
[2023-07-30 07:27] LABS: Glucose Point of Care 173 mg/dL (70-110)
[2023-07-30] MEDS: insulin lispro 100 unit/1 mL SUBCUT ×2 (08:11→12:02)
[2023-07-30] MEDS: cefTRIAXone 1,000 MG in sodium chloride 0.9% (plus) 50 ML 100 MG IV (08:12)
[2023-07-30] MEDS: doxycycline 100 mg Tablet PO ×2 (08:13→18:08)
[2023-07-30] MEDS: metoprolol tartrate 25 mg Tablet PO ×2 (08:13→19:59)
[2023-07-30] MEDS: FUROsemide 10 mg/mL SDV 2mL 20 MG IVP (08:56)
--- NOTE | 2023-07-30 09:01 | PC.CHAP ---
Pastoral Care Encounter/Spiritual Assessment Type of Contact [] Declined professor of communication and writing visit [] Patient/Family/Request visit [] Outpatient visit [] Follow-up visit [] Physician referral [] Code/Alert [] Routine visit [] Staff referral [] Actively dying [x] Patient sleeping [] Family support [] [] Out of room [] Palliative care [] [] Receiving care in room [] Pre-surgical visit [] Trauma [] Long length of stay [] ICU visit [] Other: Relational/Emotional Strength [] Patient feels connected with others/family/visitors/staff [] Distress [] Loneliness/isolation [] Abandonment Spirituality of Patient [] Person of Thuy [] Attends Taoist of their Thuy [] Believes in Prayer [] Reads Bible or Temple materials [] There are Spiritual issues to be addressed Director Medical Affairs Interventions [] Prayer [] Active listening [] Non-anxious presence [] Spiritual/emotional support [] Crisis/trauma care [] Spiritual counseling [] Bereavement support [] Provided bereavement packet [] Provided Bible/devotional materials [] Provided toy/stuffed animal, coloring book to patient or family member [] Provided Communion [] Anointing/[place] [] Salvation [] Completed spiritual assessment [] Other: Impact on Illness or Injury [] Angry [] Fearful [] Anxious [] Often cries [] Exhaustion [] Unable to work [] Unable to attend gnosticist [] Unable to walk/stand [] Unable to read [] Unable to drive [] Unable to eat/drink [] Unable to sleep [] Unable to be with family [] Patient intubated [] Other: Summary Time spent with patient
--- NOTE | 2023-07-30 09:18 | PC.SOCIAL ---
IMM Update pg 2 of IMM updated and reviewed w/ patient. Copy provided and copy dated, initialed and placed in chart.
[2023-07-30 11:30] LABS: Glucose Point of Care 187 mg/dL (70-110)
--- NOTE | 2023-07-30 11:58 | P.PN_ITS ---
Subjective 2 Subjective: White count 117,[address] Sarah to see him over the weekend He is not available today Platelet counts stable Patient is endorsing feeling better today He is not allowing us to place Hernandez catheter he has been incontinent, we do not have accurate urine output Creatinine still 3.0 CPK worsening as well I do suspect patient has component of retention of urine as well Vitals/I&O/Wt Last Vital Signs Temp 98.3 F 07/30/23 11:31 Pulse 88 07/30/23 11:31 Resp 18 07/30/23 11:31 BP 151/63 07/30/23 08:00 Pulse Ox 98 07/30/23 11:31 O2 Del Method Nasal Cannula 07/30/23 11:31 O2 Flow Rate 3 07/30/23 10:21 07/29/23 07/30/23 07/30/23 22:59 06:59 14:59 Intake Total 1000 / 1000 600 / 1600 320 / 320 Balance 1000 / 1000 600 / 1600 320 / 320 Weight last 48 hrs Weight 89.086 kg Weight 86.183 kg Weight 86.183 kg Physical Exam 2 Narrative: Awake and alert More alert and awake today as compared to yesterday Not allowing us to place Hernandez catheter GCS 15 S1, S2 Currently on room air Hypertensive Nonfocal neuroexam Abdomen soft nontender, distended Data 07/30/23 06:09 07/30/23 06:09 A&P Assessment and plan (1) Hyperglycemia: (2) ROSCOE (acute kidney injury): (3) High anion gap metabolic acidosis: (4) BPH with urinary obstruction: (5) CLL (chronic lymphocytic leukemia): (6) Lymphoma: (7) Peripheral neuropathy: (8) Diabetic neuropathy: (9) Pneumonia: Plan CLL Significant lymphadenopathy in chest pelvis and abdomen Patient will need outpatient workup For now we will start to stabilize him for pneumonia and dehydration and ROSCOE Worsening rhabdomyolysis Patient not allowing us to help with urine output with Hernandez catheter He also has history of BPH ROSCOE with creatinine 3.0 History of coronary disease takes aspirin Hemoglobin stable MIP. DVT prophylaxis Hyperglycemia Use consistent carb diet with sliding scale and insulin Continue antibiotics for community-acquired pneumonia New onset atrial flutter [id number] is 5 For now would use metoprolol Hemoglobin remains if stable by tomorrow I might be able to start Eliquis Full code Consistent carb diet Family meeting conducted Attestations 2 Medical Necessity Statement*: Continue medical management Diagnoses Hyperglycemia R73.9 ROSCOE (acute kidney injury) N17.9 High anion gap metabolic acidosis E87.29 BPH with urinary obstruction N40.1; N13.8 CLL (chronic lymphocytic leukemia) C91.10 Lymphoma C85.90 Peripheral neuropathy G62.9 Diabetic neuropathy E11.40 Pneumonia J18.9
[2023-07-30] MEDS: ipratropium-albuterol 3 mL Neb INHALATION ×2 (16:31→20:23)
[2023-07-30 17:05] LABS: Glucose Point of Care 175 mg/dL (70-110)
[2023-07-30 20:44] LABS: Glucose Point of Care 187 mg/dL (70-110)
[2023-07-30] MEDS: insulin glargine 100 units/1 mL 10 UNIT SUBCUT (21:01)
[2023-07-30] MEDS: efferdent effervescent 1 EACH DENTAL (23:58)
[2023-07-31] VITALS (11 sets, daily range): BP systolic 126–165; BP diastolic 63–76; PULSE 79–101; RESP 18–20; TEMP 36.4–36.7; O2SAT 90–93
[2023-07-31 04:19] LABS: Reflex FDPQ test REFLEX FDP QUEST TES
[2023-07-31 04:24] LABS: Hematocrit 33.1 % (37-53); Lymphocytes # 92.1 10^3/uL (0.8-4.8); Lymphocytes % 83.1 %; Mean Corpuscular HGB Conc 30.5 g/dL (30-55); Mean Corpuscular Hemoglobin 27.8 pg (27-33); Mean Corpuscular Volume 91.2 fl (82-101); Monocytes # 1.2 10^3/uL (0.2-0.9); Neutrophils # 16.68 10^3/uL (1.8-7.7); Neutrophils % 15.1 %; Nucleated Red Blood Cells % 0 %; Platelet Count 246 10^3/cmm (157-399); Red Blood Count 3.63 10^6/uL (3.85-5.65); Red Cell Distribution Width 15.6 % (12.1-15.1)
[2023-07-31 04:33] LABS: Slide Review Slide Review Perform
[2023-07-31 04:34] LABS: White Blood Count 110.86 10^3/uL (3.29-11.43)
[2023-07-31 04:37] LABS: INR 1.34 (0.8-1.2)
[2023-07-31 04:38] LABS: Partial Thromboplastin Time 42.1 SECONDS (23.9-36.7)
[2023-07-31 04:45] LABS: Fibrinogen 1247 mg/dL (174-498)
[2023-07-31 04:48] LABS: D Dimer 4.33 ug/mLFEU (0-0.59)
[2023-07-31] MEDS: heparin 5,000 unit/mL INJ 1 mL 5000 UNIT SUBCUT ×2 (04:52→17:44)
[2023-07-31 05:00] LABS: Alanine Aminotransferase 56 U/L (0-41); Albumin Level 2.9 g/dL (3.5-5.2); Alkaline Phosphatase 104 U/L (40-130); Aspartate Amino Transferase 94 U/L (0-40); Calcium 8.8 mg/dL (8.5-10.5); Carbon Dioxide 17 mmol/L (22-29); Chloride 98 mmol/L (98-107); Globulin 3.6 g/dL (1.3-4.6); Glucose 189 mg/dL (65-115); Lactate Dehydrogenase 300 U/L (135-225); Osmolality Calculated 317 mOsm/kg (285-295); Sodium 136 mmol/L (136-145); Total Bilirubin 0.6 mg/dL (0.15-1.2); Total Protein 6.5 g/dL (6.6-8.7)
[2023-07-31 05:04] LABS: Blood Urea Nitrogen 97 mg/dL (8-23)
--- NOTE | 2023-07-31 05:05 | XRR_ITS ---
PROCEDURE INFORMATION: Exam: XR Chest Exam date and time: 07/31/2023 5:19 AM Age: 82 years old Clinical indication: Shortness of breath and wheezing; Patient HX: SOB with audible rales; Additional info: Shortness of breath, crackles TECHNIQUE: Imaging protocol: Radiologic exam of the chest. Views: 1 view. COMPARISON: CR XR chest 1V portable [id number] 07/29/2023 12:22 PM FINDINGS: Lungs: Increasing opacity over the left lower lobe represents a developing consolidative pneumonia possibly with the fusion. Pleural spaces: Unremarkable. No pleural effusion. No pneumothorax. Heart/Mediastinum: Unremarkable. No cardiomegaly. Bones/joints: Old right rib fracture. XR/XR chest 1V portable [id number] IMPRESSION: Left lower lobe pneumonia.
--- NOTE | 2023-07-31 05:20 | PC.NURSE ---
This morning patient appears to be short of breath and has increased crackles in the lungs. Dr. Chaparro was notified and ordered a chest x-ray.
[2023-07-31 06:26] LABS: Glucose Point of Care 209 mg/dL (70-110)
[2023-07-31] MEDS: cefTRIAXone 1,000 MG in sodium chloride 0.9% (plus) 50 ML 100 MG IV (08:26)
[2023-07-31] MEDS: metoprolol tartrate 25 mg Tablet PO ×2 (08:27→21:06)
[2023-07-31] MEDS: doxycycline 100 mg Tablet PO (08:27)
[2023-07-31] MEDS: insulin lispro 100 unit/1 mL SUBCUT ×3 (08:28→17:45)
--- NOTE | 2023-07-31 09:17 | USCV_ITS ---
Garett Matos Age: 82 Gender: M : 1940 Exam Date: 07/31/2023 18:31 Ordering Phys: Korey Saeed MD Technologist: Mateusz Piedra Exam Location: [facility] – [place] Indication: chf BP: 144 / 72 HR: 83 Rhythm: Atrial fibrillation Technical Quality: Suboptimal MEASUREMENTS (Male / Female) Normal Values 2D ECHO LVOT Diameter 2.0 cm LV Ejection Fraction MOD 2C 65.4 % LV Ejection Fraction 2C AL 65.2 % LA Diameter 4.0 cm LA Width 3.5 cm LA Height 4.6 cm RA Width 3.9 cm RA Height 4.7 cm Aorta at Sinotubular Diameter 2.0 cm IVC Diameter 1.8 cm M-MODE Aortic Annulus Diameter 2.2 cm LA Ao Ratio MM 1.9 MV E Point Septal Separation 0.4 cm DOPPLER AV Peak Velocity 160.7 cm/s LVOT Peak Velocity 71.0 cm/s AV Area Cont Eq vti 1.6 cm squared AV Area Cont Eq pk 1.4 cm squared MV Peak Velocity 155.0 cm/s MV Area PHT 3.7 cm squared MV E' Velocity 55.2 cm/s Mitral E to MV E' Ratio 6.6 Mitral E to LV E' Lateral Ratio 5.5 Mitral E to LV E' Septal Ratio 8.2 TR Peak Velocity 329.7 cm/s TR Peak Gradient 43.5 mmHg TR Mean Velocity 257.2 cm/s TR Mean Gradient 29.1 mmHg TR Velocity Time Integral 79.7 cm Right Atrial Pressure 3.0 mmHg Pulmonary Artery Systolic Pressu 46.5 mmHg PV Peak Velocity 126.7 cm/s RV Acceleration Time 0.1 s RV Ejection Time 0.2 s RV AcT/ET 0.3 FINDINGS Left Ventricle The rhythm is atrial fibrillation with a rapid rate. This decreases the sensitivity of the exam. Wall motion disturbances are less accurate in this circumstance. The ventricle appears to be normal in size and function. Estimated ejection fraction 55 to 60%. Rhythm precludes evaluation of diastolic function. Right Ventricle Normal right ventricular size and systolic function. Mild pulmonary hypertension, RVSP 46.5 mmHg. Right Atrium The right atrium is normal in size. Left Atrium The left atrium is normal in size. Mitral Valve Mitral valve not well visualized. Trace mitral valve regurgitation. Aortic Valve Aortic valve not well visualized. Tricuspid Valve Structurally normal tricuspid valve. Tricuspid valve not well visualized. Mild tricuspid valve regurgitation. Pulmonic Valve Pulmonic valve not well visualized. Trace pulmonary valve regurgitation. Pericardium Normal pericardium without effusion. Aorta Normal ascending aorta dimension. IVC Inferior vena cava not visualized. CONCLUSIONS The rhythm is atrial fibrillation with a rapid rate. This decreases the sensitivity of the exam. Wall motion disturbances are less accurate in this circumstance. The ventricle appears to be normal in size and function. Estimated ejection fraction 55 to 60%. Rhythm precludes evaluation of diastolic function. Normal right ventricular size and systolic function. Mild pulmonary hypertension, RVSP 46.5 mmHg. Mitral valve not well visualized. Trace mitral valve regurgitation. There are no prior echocardiogram studies to compare. Dr. Genaro Li MD (Electronically Signed) Final Date: 01 August 2023 08:18 S
--- NOTE | 2023-07-31 09:18 | ECG_ITS ---
[facility] Test Date: 2023-07-31 Pat Name: Garett Matos Department: Room: 250 Gender: Male Hvac Residential Service Technician: : 1940 Requested By: Korey Saeed Order Number: [id number] Efra MD: Genaro Li M.D. Measurements Intervals [place] Rate: 84 P: 0 [place]: 0 QRS: -7 QRSD: 123 T: 44 QT: 362 QTc: 428 Interpretive Statements ATRIAL fibrillation MODERATE INTRAVENTRICULAR CONDUCTION DELAY [110+ ms QRS DURATION] ABNORMAL RHYTHM ECG No previous ECG available for comparison Electronically Signed On 07-31-2023 15:44:02 FISHERIES TECHNICAL OFFICER by Genaro Li M.D. [id number]
[2023-07-31] MEDS: ipratropium-albuterol 3 mL Neb INHALATION (09:55)
--- NOTE | 2023-07-31 11:18 | ECG_ITS ---
[facility] Test Date: 2023-07-31 Pat Name: Garett Matos Department: Room: 250 Gender: Male Cma: : 1940 Requested By: Korey Saeed Order Number: [id number] Efra MD: Genaro Li M.D. Measurements Intervals [place] Rate: 91 P: 0 ID: 0 QRS: -1 QRSD: 118 T: 50 QT: 325 QTc: 401 Interpretive Statements ATRIAL FIBRILLATION MODERATE INTRAVENTRICULAR CONDUCTION DELAY [110+ ms QRS DURATION] ABNORMAL RHYTHM ECG Compared to ECG 07/31/2023 09:50:16 Electronically Signed On 07-31-2023 15:45:52 ICE CREAM DIPPER by Genaro Li M.D. [id number]
--- NOTE | 2023-07-31 11:20 | P.CONIM_ITS ---
Providers/Reason For Consult 2 Consulting Physician/Specialty*: kommana /Nephrology Reason for Consult*: ROSCOE Attending Physician: Korey Saeed MD Primary Care Provider: Jessi Trinidad History of Present Illness History of Present Illness Garett Matos is a 82 year old male Patient is a 82-year-old male with past medical history of coronary artery disease, hypertension was admitted to the hospital on 07/29/2023 after he had a fall at home and also was noted to have generalized weakness. Patient did complain of nausea vomiting and weakness. Further workup in the ER showed acute kidney injury with a creatinine of 3.0, elevated CK levels as well as high WBC count more than 100,000 concerning for CLL versus lymphoma. Hematology oncologist was consulted who reviewed peripheral smear. Plan to workup CLL as outpatient. He received IV fluids which are currently on hold, on 5 L O2 by nasal cannula. Creatinine remained stable at 3.1 today. He also has metabolic acidosis with a bicarbonate of 17. Had reasonable urine output. Review of Systems 2 Narrative: Other ROS negative Medications/Allergies Home Medications Medication Instructions Recorded Confirmed Last Taken Type allopurinol 100 mg tablet 100 mg PO DAILY 09/12/19 07/29/23 Unknown History aspirin 81 mg tablet,delayed 81 mg PO DAILY 09/12/19 07/29/23 Unknown History release clopidogrel 75 mg tablet (Plavix) 75 mg PO DAILY 09/12/19 07/29/23 Unknown History esomeprazole magnesium 40 mg 40 mg PO DAILY 09/12/19 07/29/23 Unknown History capsule,delayed release fluticasone propionate 50 1 spray intranasal DAILY 09/12/19 07/29/23 Unknown History mcg/actuation nasal spray,suspension gabapentin 400 mg capsule 400 mg PO DAILY 09/12/19 07/29/23 Unknown History glipizide 10 mg tablet 10 mg PO DAILY 09/12/19 07/29/23 Unknown History insulin human U-100 NPH-regulr 50 unit SUBCUT DAILY 09/12/19 07/29/23 Unknown History 70-30 mix 100 unit/mL subcutaneous susp (Humulin 70/30 U-100 Insulin) levothyroxine 100 mcg capsule 100 mcg PO DAILY 09/12/19 07/29/23 Unknown History nitroglycerin 0.4 mg/hr 1 patch transdermal DAILY 09/12/19 07/29/23 Unknown History transdermal 24 hour patch (Nitro-Dur) spironolactone 25 mg tablet 25 mg PO DAILY 09/12/19 07/29/23 Unknown History bumetanide 1 mg tablet 1 mg PO BID 05/01/20 07/29/23 Unknown History finasteride 5 mg tablet 5 mg PO DAILY #90 tabs 05/29/22 07/29/23 Unknown Rx alfuzosin 10 mg tablet,extended 10 mg PO DAILY 07/29/23 07/29/23 Unknown History release 24 hr cetirizine 10 mg tablet 10 mg PO DAILY 07/29/23 07/29/23 Unknown History Allergies Allergy/AdvReac Type Severity Reaction Status Date / Time cefaclor AdvReac Intermediate ADR-Itching Verified 07/29/23 14:24 Penicillins AdvReac Intermediate ADR-Itching Verified 07/29/23 14:24 Sulfa (Sulfonamide AdvReac Intermediate ADR-Itching Verified 07/29/23 14:24 Antibiotics) Current Medications Generic Name Dose Route Start Last Admin Trade Name Freq PRN Reason Stop Dose Admin Albuterol/Ipratropium 3 ml 07/29/23 16:33 07/31/23 09:55 Ipratropium-Albuterol 3 Ml Neb INHALATION 3 ml Q6H PRN Administration SHORTNESS OF BREATH Denture Adhesive 1 each 07/30/23 19:19 07/30/23 23:58 Efferdent Effervescent DENTAL 1 each PRN PRN Administration clean dentures Heparin Sodium (Porcine) 5,000 unit 07/29/23 16:33 07/31/23 04:52 Heparin 5,000 Unit/Ml Inj 1 Ml SUBCUT 5,000 unit Q12H CAMMY Administration Ceftriaxone Sodium 1,000 mg/ 50 mls @ 100 mls/hr 07/30/23 09:00 07/31/23 10:58 Sodium Chloride IV Infused DAILY CAMMY Infusion Protocol Insulin Glargine 10 unit 07/29/23 21:00 07/30/23 21:01 Insulin Glargine 100 Units/1 Ml SUBCUT 10 unit BEDTIME CAMMY Administration Insulin Human Lispro 0 unit 07/29/23 18:00 07/31/23 08:28 Insulin Lispro 100 Unit/1 Ml SUBCUT 6 unit TIDWM CAMMY Administration Protocol Metoprolol Tartrate 25 mg 07/29/23 21:00 07/31/23 08:27 Metoprolol Tartrate 25 Mg Tablet PO 25 mg BID@0900,2100 CAMMY Administration PFSH Acute 2 PFSH: Medical History (Updated 07/29/23 @ 19:25 by Korey Saeed MD) Hypertension Nocturnal hypoxemia Morbid obesity due to excess calories Hyperlipemia GERD (gastroesophageal reflux disease) Gastroparesis Venous stasis dermatitis WENDY (obstructive sleep apnea) Hypothyroidism Chronic diastolic heart failure Chronic atrial fibrillation Type 2 diabetes mellitus BPH with urinary obstruction Chronic prostatitis Surgical History History of colonoscopy with polypectomy Hx of cholecystectomy Hx of heart artery stent Hx of bilateral cataract extraction Family History Mother , AT AGE 59 BONE CANCER Cancer Father , AT AGE 95 Congestive heart failure Social History Smoking and tobacco/nicotine status: former use of tobacco/nicotine Alcohol intake: never Substance/Drug Use: unknown Adopted: No Caregiver/support person: No Lives independently: No Household members: spouse Marital status: Current occupational status: retired Current gender identity: Male Vitals/I&O/Wt Last Vital Signs Temp 97.7 F 07/31/23 07:44 Pulse 101 H 07/31/23 10:01 Resp 20 H 07/31/23 09:55 BP 165/68 07/31/23 07:44 Pulse Ox 92 07/31/23 09:55 O2 Del Method Nasal Cannula 07/31/23 09:55 O2 Flow Rate 6 07/31/23 09:55 07/30/23 07/31/23 07/31/23 22:59 06:59 14:59 Intake Total 290 / 290 Output Total 1350 / 1350 400 / 1750 Balance -1350 / -790 -400 / -1190 290 / 290 Weight last 48 hrs Weight 89.896 kg Weight 89.086 kg Weight 86.183 kg Weight 86.183 kg Physical Exam 2 Narrative: awake , alert No distres s Urinary Catheter Management: Hernandez: Cath Placed During This Visit: yes Reason for Continuing Indwelling Catheter: Accurate Measurement of Urinary Output in Critically Ill Patients Urinary Catheter Date of Insertion: 02/09/24 Urinary Catheter Time of Insertion: 12:31 Data 07/31/23 02:50 07/31/23 02:50 Micro: Microbiology 07/29/23 11:58 Urine Culture - Final Urine,Clean Catch A&P Assessment and plan (1) ROSCOE (acute kidney injury): Plan 1. Acute kidney injury: Baseline creatinine not available, creatinine stable at 3 range currently associated with metabolic acidosis. Recent urine output reasonable. Etiology of ROSCOE likely prerenal, rhabdo, in the setting of possible CLL . Monitor for tumor lysis- noted elevated Phos and LDH levels-not very high, -Continue to monitor, encourage p.o. intake, off IV fluids,- -Can give as needed Lasix if required for respiratory distress -Avoid IV contrast studies 2. Metabolic acidosis: Added Bicitra 3. Rhabdomyolysis:, CK is under 500, monitor off IV fluids 4. Concern for CLL versus lymphoma: Outpatient workup with hematology oncology, Patient evaluated using audiovisual cart. Time spent 40 minutes. Consult Attestations 2 Medical Necessity Statement: per mediicne team Coding Level of Care Code Acute Code for [facility] Diagnoses ROSCOE (acute kidney injury) N17.9
[2023-07-31 11:29] LABS: Creatine Phosphokinase 535 U/L (39-308)
[2023-07-31 11:30] LABS: D Dimer 4.74 ug/mLFEU (0-0.59); Troponin(5th) Baseline 252 ng/L (0-15)
[2023-07-31 11:34] LABS: Glucose Point of Care 171 mg/dL (70-110)
--- NOTE | 2023-07-31 11:48 | PC.CHAP ---
Pastoral Care Encounter/Spiritual Assessment Type of Contact [] Declined fountain pen turner visit [] Patient/Family/Request visit [] Outpatient visit [] Follow-up visit [] Physician referral [] Code/Alert [] Routine visit [] Staff referral [] Actively dying [] Patient sleeping [] Family support [] [] Out of room [] Palliative care [] [] Receiving care in room [] Pre-surgical visit [] Trauma [] Long length of stay [] ICU visit [] Other: Relational/Emotional Strength [] Patient feels connected with others/family/visitors/staff [] Distress [] Loneliness/isolation [] Abandonment Spirituality of Patient [x] Person of Thuy [] Attends Orthodoxy of their Thuy [] Believes in Prayer [] Reads Bible or Sikh materials [] There are Spiritual issues to be addressed Automobile Body Repairer Interventions [x] Prayer [] Active listening [] Non-anxious presence [] Spiritual/emotional support [] Crisis/trauma care [] Spiritual counseling [] Bereavement support [] Provided bereavement packet [] Provided Bible/devotional materials [] Provided toy/stuffed animal, coloring book to patient or family member [] Provided Communion [] Anointing/[place] [] Salvation [] Completed spiritual assessment [] Other: Impact on Illness or Injury [] Angry [] Fearful [] Anxious [] Often cries [] Exhaustion [] Unable to work [] Unable to attend scientologist [] Unable to walk/stand [] Unable to read [] Unable to drive [] Unable to eat/drink [] Unable to sleep [] Unable to be with family [] Patient intubated [] Other: Summary Prayed with patient and 4 family members Time spent with patient
[2023-07-31 11:57] LABS: Uric Acid 13.8 mg/dL (3.4-7.0)
[2023-07-31] MEDS: aspirin 325 mg Tablet PO (12:47)
[2023-07-31] MEDS: citric acid-sodium citrate 30 mL UDC PO (12:47)
[2023-07-31] MEDS: clopidogrel 300 mg Tablet PO (12:47)
[2023-07-31 12:53] LABS: Potassium, Radom Urine 40 mmol/L
[2023-07-31 12:54] LABS: Urine Random Chloride 11 mmol/L; Urine Random Sodium 19 mmol/L
[2023-07-31 12:59] LABS: Creatinine Urine, Random 62 mg/dL (39-259); Microalbum Creatinine Ratio Ur 355 mg/dL (0-20); Microalbumin Random Urine 22 ug/dL (0-20)
[2023-07-31 13:53] LABS: Troponin 5 2HR Delta -4.4 ABS# (0-10)
[2023-07-31 13:58] LABS: Troponin 5 2HR 247.6 ng/L (0-15)
--- NOTE | 2023-07-31 14:11 | P.CONIM_ITS ---
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 He has multiple medical illnesses including hypertension, type II diabetes, coronary artery disease, chronic atrial fibrillation, hypothyroidism, GERD, and benign prostatic hypertrophy. On 07/29/2023 he was taken to the emergency room by ambulance after he had been found lying on the floor at home, having fallen sometime earlier. Family now suspects that he had probably been lying there for about 8 hours. On evaluation in the emergency room, he was found to be hyperglycemic and had evidence of rhabdomyolysis. He also had a significantly elevated white blood cell count at 127,800 with a differential showing 83% lymphocytes, 14% neutrophils, and 1% monocytes. He was mildly anemic with hemoglobin 11.3 g. The platelet count was normal at 285,000. His comprehensive metabolic profile showed elevated BUN and creatinine at 94 and 3.0 mg/dL. Bilirubin and liver enzymes were normal. LDH was mildly elevated at 276/225 U/L. His CT abdomen/pelvis showed left lower lobe consolidative pneumonia. The spleen was borderline enlarged at 12 cm. There was noted to be marked periaortic, mesenteric, bilateral inguinal, and pelvic sidewall adenopathy. The largest single lymph node was in the right lower pelvis measuring 7.2 x 2.5 cm. There was evidence for bilateral nonobstructing renal calculi. There was no hydronephrosis reported. Following admission to the hospital he began IV hydration and he began empiric antibiotic coverage with ceftriaxone and doxycycline. His follow-up laboratory studies showed a slight further decrease in the hemoglobin to 10.1 g but with white blood cell count similarly elevated at 110,000 and with platelet count normal at 246,000. Renal function remains unchanged with BUN 97 and creatinine 3.1 mg/dL. Liver enzymes have become mildly elevated. His repeat LDH was similar at 300 U/L. Uric acid level today is significantly elevated at 13.8 mg/dL. His CPK peaked at 1201 U/L yesterday and today it is down to 535 U/L. According to the family his general condition had declined significantly following COVID-19 virus infection in 2021. It was temporarily in the alf following that illness, but he was then able to return home to live independently with a caregiver coming in twice weekly. Family indicates that he had complained of dizziness, and that he had been prone to falling. He had an ECOG score of 2 prior to this illness. He was not having fever or night sweating. He had some nausea/vomiting about a month ago, but that was just transient. He recalls having recently developed a cough. He was not having trouble breathing, and he had not been having chest pain. He had no other GI complaints, but he does report having poor bladder function. He has pain in his feet associated with diabetic neuropathy, but he does not report having other joint or bone pain, and he has not been having headache. Review of Systems 2 Narrative: Review of systems is as noted above. Medications/Allergies Home Medications Medication Instructions Recorded Confirmed Last Taken Type allopurinol 100 mg tablet 100 mg PO DAILY 09/12/19 07/29/23 Unknown History aspirin 81 mg tablet,delayed 81 mg PO DAILY 09/12/19 07/29/23 Unknown History release clopidogrel 75 mg tablet (Plavix) 75 mg PO DAILY 09/12/19 07/29/23 Unknown History esomeprazole magnesium 40 mg 40 mg PO DAILY 09/12/19 07/29/23 Unknown History capsule,delayed release fluticasone propionate 50 1 spray intranasal DAILY 09/12/19 07/29/23 Unknown History mcg/actuation nasal spray,suspension gabapentin 400 mg capsule 400 mg PO DAILY 09/12/19 07/29/23 Unknown History glipizide 10 mg tablet 10 mg PO DAILY 09/12/19 07/29/23 Unknown History insulin human U-100 NPH-regulr 50 unit SUBCUT DAILY 09/12/19 07/29/23 Unknown History 70-30 mix 100 unit/mL subcutaneous susp (Humulin 70/30 U-100 Insulin) levothyroxine 100 mcg capsule 100 mcg PO DAILY 09/12/19 07/29/23 Unknown History nitroglycerin 0.4 mg/hr 1 patch transdermal DAILY 09/12/19 07/29/23 Unknown History transdermal 24 hour patch (Nitro-Dur) spironolactone 25 mg tablet 25 mg PO DAILY 09/12/19 07/29/23 Unknown History bumetanide 1 mg tablet 1 mg PO BID 11/11/20 02/08/24 Unknown History finasteride 5 mg tablet 5 mg PO DAILY #90 tabs 05/29/22 07/29/23 Unknown Rx alfuzosin 10 mg tablet,extended 10 mg PO DAILY 07/29/23 07/29/23 Unknown History release 24 hr cetirizine 10 mg tablet 10 mg PO DAILY 07/29/23 07/29/23 Unknown History Allergies Allergy/AdvReac Type Severity Reaction Status Date / Time cefaclor AdvReac Intermediate ADR-Itching Verified 07/29/23 14:24 Penicillins AdvReac Intermediate ADR-Itching Verified 07/29/23 14:24 Sulfa (Sulfonamide AdvReac Intermediate ADR-Itching Verified 07/29/23 14:24 Antibiotics) Current Medications Generic Name Dose Route Start Last Admin Trade Name Freq PRN Reason Stop Dose Admin Albuterol/Ipratropium 3 ml 07/29/23 16:33 07/31/23 09:55 Ipratropium-Albuterol 3 Ml Neb INHALATION 3 ml Q6H PRN Administration SHORTNESS OF BREATH Denture Adhesive 1 each 07/30/23 19:19 07/30/23 23:58 Efferdent Effervescent DENTAL 1 each PRN PRN Administration clean dentures Heparin Sodium (Porcine) 5,000 unit 07/29/23 16:33 07/31/23 04:52 Heparin 5,000 Unit/Ml Inj 1 Ml SUBCUT 5,000 unit Q12H CAMMY Administration Ceftriaxone Sodium 1,000 mg/ 50 mls @ 100 mls/hr 07/30/23 09:00 07/31/23 10:58 Sodium Chloride IV Infused DAILY CAMMY Infusion Protocol Insulin Glargine 10 unit 07/29/23 21:00 07/30/23 21:01 Insulin Glargine 100 Units/1 Ml SUBCUT 10 unit BEDTIME CAMMY Administration Insulin Human Lispro 0 unit 07/29/23 18:00 07/31/23 12:47 Insulin Lispro 100 Unit/1 Ml SUBCUT 4 unit TIDWM CAMMY Administration Protocol Metoprolol Tartrate 25 mg 07/29/23 21:00 07/31/23 08:27 Metoprolol Tartrate 25 Mg Tablet PO 25 mg BID@0900,2100 CAMMY Administration PFSH Acute 2 PFSH: Medical History (Updated 07/29/23 @ 19:25 by Korey Saeed MD) Hypertension Nocturnal hypoxemia Morbid obesity due to excess calories Hyperlipemia GERD (gastroesophageal reflux disease) Gastroparesis Venous stasis dermatitis WENDY (obstructive sleep apnea) Hypothyroidism Chronic diastolic heart failure Chronic atrial fibrillation Type 2 diabetes mellitus BPH with urinary obstruction Chronic prostatitis Surgical History History of colonoscopy with polypectomy Hx of cholecystectomy Hx of heart artery stent Hx of bilateral cataract extraction Family History Mother , AT AGE 59 BONE CANCER Cancer Father , AT AGE 95 Congestive heart failure Social History Smoking and tobacco/nicotine status: former use of tobacco/nicotine Alcohol intake: never Substance/Drug Use: unknown Adopted: No Caregiver/support person: No Lives independently: No Household members: spouse Marital status: Current occupational status: retired Current gender identity: Male Vitals/I&O/Wt Last Vital Signs Temp 97.5 F L 07/31/23 11:58 Pulse 90 07/31/23 11:58 Resp 19 H 07/31/23 11:58 BP 126/76 07/31/23 11:58 Pulse Ox 92 07/31/23 11:58 O2 Del Method Nasal Cannula 07/31/23 11:58 O2 Flow Rate 6 07/31/23 09:55 07/30/23 07/31/23 07/31/23 22:59 06:59 14:59 Intake Total 530 / 530 Output Total 1350 / 1350 400 / 1750 Balance -1350 / -790 -400 / -1190 530 / 530 Weight last 48 hrs Weight 89.896 kg Weight 89.086 kg Weight 86.183 kg Physical Exam 2 Narrative: Constitutional: He appears generally weak. Eyes: Sclerae nonicteric. Conjunctivae clear. ENMT: No lesions noted in the oral cavity. Neck: Neck shows no mass or thyromegaly. Hematologic/Lymphatic: No cervical, clavicular, or axillary adenopathy. Respiratory: Lungs show slightly coarse breath sounds bilaterally. Cardiovascular: Heart rhythm is irregular. The rate is controlled. There is no murmur, gallop, or rub noted. Abdomen: Soft. Liver is not enlarged. Spleen is not palpable. There is no abdominal mass or ascites noted and there is no inguinal adenopathy noted. Extremities: No edema. Neurologic: No focal neurologic deficits noted. Urinary Catheter Management: Hernandez: Cath Placed During This Visit: yes Reason for Continuing Indwelling Catheter: Accurate Measurement of Urinary Output in Critically Ill Patients Urinary Catheter Date of Insertion: 07/30/23 Urinary Catheter Time of Insertion: 12:31 Data 07/31/23 02:50 07/31/23 02:50 Micro: Microbiology 07/29/23 11:58 Urine Culture - Final Urine,Clean Catch Other data: I reviewed the blood smear from the initial CBC. It showed fairly bland, mature-appearing lymphocytes, consistent with typical CLL. A&P Assessment and plan (1) CLL (chronic lymphocytic leukemia): Patient with significant lymphocytosis, appearance of which is consistent with chronic lymphocytic leukemia. He also has CT evidence of extensive lymphadenopathy in the abdomen/pelvis, and he has a significantly elevated uric acid level. In usual circumstances we would complete evaluation for the CLL as an outpatient. The concern here is to what extent it may be contributing to the acute illness, particularly with his renal function not improving. Some component of the hyperuricemia could be related to the elevated blood count, though actual tumor lysis is typically a treatment related acute process. The other concern is the lymphadenopathy. While it is commonly associated with CLL, there is also a possibility of transformation to high-grade lymphoma. At this point there are no obvious indications for that clinically, but ideally he should have further evaluation with PET/CT and with lymph node biopsy, as indicated. If there is continued improvement in his clinical status, evaluation and treatment for the CLL can be completed as an outpatient. If his renal function and clinical status are not improving within the next several days, it may be advisable to transfer to a facility where the evaluation can be done as an inpatient. Coding Level of Care Code 70026 Diagnoses CLL (chronic lymphocytic leukemia) C91.10
[2023-07-31] MEDS: heparin drip 25,000 UNIT/500 ML PREMIX 2247.4 UNIT IV (14:33)
--- NOTE | 2023-07-31 15:18 | ECG_ITS ---
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 Measurements Intervals [place] Rate: 90 P: 0 FL: 0 QRS: 4 QRSD: 130 T: 53 QT: 362 QTc: 445 Interpretive Statements ATRIAL FIBRILLATION POSSIBLE RIGHT VENTRICULAR CONDUCTION DELAY [RSR (QR) IN V1/V2] ABNORMAL RHYTHM ECG Compared to ECG 07/31/2023 12:13:27 Intraventricular conduction delay no longer present Electronically Signed On 07-31-2023 15:46:20 TOBACCO SCRAP SIFTER by Genaro Li M.D. [id number]
[2023-07-31 16:27] LABS: Troponin 5 6HR Delta -7.5 ng/L (0-12)
[2023-07-31 16:29] LABS: Troponin 5 6HR 244.5 ng/L (0-15)
[2023-07-31 16:37] LABS: Glucose Point of Care 179 mg/dL (70-110)
[2023-07-31] MEDS: amoxicillin-clav 875-125 mg Tablet 1 TAB PO (17:44)
--- NOTE | 2023-07-31 18:26 | PM.PN ---
Subjective Subjective: Requested echo with troponin which ruled in for non-STEMI and started heparin drip today Patient is stating that he is feeling slightly better Will consult nephro Vitals/I&O/Wt Last Vital Signs Temp 97.7 F 07/31/23 17:03 Pulse 93 07/31/23 17:03 Resp 18 07/31/23 17:03 BP 144/72 07/31/23 17:03 Pulse Ox 91 07/31/23 17:03 O2 Del Method Nasal Cannula 07/31/23 17:03 O2 Flow Rate 6 07/31/23 09:55 07/31/23 07/31/23 07/31/23 06:59 14:59 22:59 Intake Total 530 / 530 360 / 890 Output Total 400 / 1750 275 / 275 Balance -400 / -1190 530 / 530 85 / 615 Weight last 48 hrs Weight 89.896 kg Weight 89.086 kg Weight 86.183 kg Physical Exam Narrative: Awake and alert Eating breakfast Nonfocal neuroexam Abdomen soft Hernandez catheter draining dilute urine Currently on 5L Chick Room Supervisor is at the bedside Urinary Catheter Management: Hernandez: Cath Placed During This Visit: yes Reason for Continuing Indwelling Catheter: Accurate Measurement of Urinary Output in Critically Ill Patients Urinary Catheter Date of Insertion: 07/30/23 Urinary Catheter Time of Insertion: 12:31 Data 07/31/23 02:50 07/31/23 02:50 Micro: Microbiology 07/29/23 11:58 Urine Culture - Final Urine,Clean Catch A&P Assessment and plan (1) Hyperglycemia: (2) ROSCOE (acute kidney injury): (3) High anion gap metabolic acidosis: (4) Chronic prostatitis: (5) BPH with urinary obstruction: (6) Dehydrated hereditary stomatocytosis: (7) CLL (chronic lymphocytic leukemia): (8) NSTEMI (non-ST elevated myocardial infarction): Plan Ruled in for non-STEMI Started ACS protocol Requested echo No active chest pain CLL, leukocytosis improving Appreciate Dr. Sarah's consultation ROSCOE: Creatinine worsening adequate urine output Added bicarb drip Nephro consult Full code Cardiac consistent carb diet Hernandez catheter placed Acute community-acquired pneumonia currently on 5 L of oxygen Currently on antibiotic Attestations Medical Necessity Statement*: Continue medical management Coding Level of Care Code Acute Code for Chg Fwd Diagnoses Hyperglycemia R73.9 ROSCOE (acute kidney injury) N17.9 High anion gap metabolic acidosis E87.29 Chronic prostatitis N41.1 BPH with urinary obstruction N40.1; N13.8 Dehydrated hereditary stomatocytosis D58.8 CLL (chronic lymphocytic leukemia) C91.10 NSTEMI (non-ST elevated myocardial infarction) I21.4
[2023-07-31 19:55] LABS: Partial Thromboplastin Time 45.2 SECONDS (23.9-36.7)
[2023-07-31] MEDS: heparin 5,000 unit/mL INJ 1 mL IV (20:09)
[2023-07-31 21:32] LABS: Glucose Point of Care 195 mg/dL (70-110)
[2023-07-31] MEDS: insulin glargine 100 units/1 mL 10 UNIT SUBCUT (21:50)
[2023-08-01] VITALS (13 sets, daily range): BP systolic 128–148; BP diastolic 63–76; PULSE 82–104; RESP 17–20; TEMP 36.1–37.7; O2SAT 90–94
[2023-08-01 02:55] LABS: Lymphocytes # 79.9 10^3/uL (0.8-4.8); Lymphocytes % 82.7 %; Mean Corpuscular HGB Conc 31.9 g/dL (30-55); Mean Corpuscular Hemoglobin 28.6 pg (27-33); Mean Corpuscular Volume 89.6 fl (82-101); Mean Platelet Volume 10.4 fL (7.4-10.4); Monocytes # 0.6 10^3/uL (0.2-0.9); Monocytes % 0.6 %; Neutrophils # 15.22 10^3/uL (1.8-7.7); Neutrophils % 15.7 %; Nucleated Red Blood Cells % 0 %; Platelet Count 240 10^3/cmm (157-399); Red Blood Count 3.46 10^6/uL (3.85-5.65); Red Cell Distribution Width 15.6 % (12.1-15.1)
[2023-08-01 03:04] LABS: Partial Thromboplastin Time 51.3 SECONDS (23.9-36.7)
[2023-08-01 03:10] LABS: Anion Gap 22.7 (5-19); Calcium 8.1 mg/dL (8.5-10.5); Carbon Dioxide 18 mmol/L (22-29); Chloride 96 mmol/L (98-107); Glucose 155 mg/dL (65-115); Osmolality Calculated 308 mOsm/kg (285-295); Potassium 4.7 mmol/L (3.5-5.1); Sodium 132 mmol/L (136-145)
[2023-08-01 03:13] LABS: Blood Urea Nitrogen 99 mg/dL (8-23); White Blood Count 96.61 10^3/uL (3.29-11.43)
[2023-08-01] MEDS: heparin 5,000 unit/mL INJ 1 mL IV ×2 (03:20→10:32)
[2023-08-01 03:23] LABS: Creatine Phosphokinase 526 U/L (39-308)
[2023-08-01 06:49] LABS: Glucose Point of Care 191 mg/dL (70-110)
[2023-08-01] MEDS: insulin lispro 100 unit/1 mL SUBCUT ×2 (08:30→12:15)
[2023-08-01] MEDS: metoprolol tartrate 25 mg Tablet PO ×2 (08:31→21:50)
[2023-08-01] MEDS: aspirin 81 mg EC Tablet PO (08:31)
[2023-08-01] MEDS: cefTRIAXone 1,000 MG in sodium chloride 0.9% (plus) 50 ML 100 MG IV (08:31)
[2023-08-01] MEDS: amoxicillin-clav 875-125 mg Tablet 1 TAB PO ×2 (08:31→18:13)
[2023-08-01] MEDS: clopidogrel 75 mg Tablet PO (08:31)
[2023-08-01] MEDS: heparin drip 25,000 UNIT/500 ML PREMIX 28.77 UNIT IV (08:39)
[2023-08-01] MEDS: morphine IR 15 mg Tablet PO (08:45)
--- NOTE | 2023-08-01 08:47 | PM.PN ---
Subjective Subjective: Patient this morning was much more awake and alert he was able to tell me what he ate in his breakfast Afebrile Leukocytosis improving Creatinine improved to some extent today Spoke with the family Patient is not endorsing any chest pain or abdominal pain He is complaining of some back pain in between his shoulder blades He is uncomfortable because of that He wants to sit up in a chair Records were reviewed from [facility] His 2018 creatinine seems to be 1.8-2 he has sleep apnea, diastolic CHF, dementia, sleep apnea and uses 2 to 3 L at baseline Vitals/I&O/Wt Last Vital Signs Temp 99.9 F H 08/01/23 04:00 Pulse 104 H 08/01/23 05:52 Resp 19 H 08/01/23 04:00 BP 132/76 08/01/23 04:00 Pulse Ox 90 08/01/23 04:00 O2 Del Method Nasal Cannula 08/01/23 04:00 O2 Flow Rate 6 07/31/23 20:39 07/31/23 08/01/23 08/01/23 22:59 06:59 14:59 Intake Total 500.533 / 1105.446 284.554 / 1390.000 Output Total 875 / 875 300 / 1175 Balance -374.467 / 230.446 -15.446 / 215.000 Weight last 48 hrs Weight 90.01 kg Weight 89.896 kg Physical Exam Narrative: Signs of fluid load improving Mentation improving No worsening of petechiae ecchymosis of left side Currently on 4 L of nasal cannula Abdomen soft distended No active chest pain S1, S2 A-fib paroxysmal Low extremity no swelling Urinary Catheter Management: Hernandez: Cath Placed During This Visit: yes Reason for Continuing Indwelling Catheter: Other Urinary Catheter Date of Insertion: 07/30/23 Urinary Catheter Time of Insertion: 12:31 Data 08/01/23 02:29 08/01/23 02:29 Micro: Microbiology 07/29/23 11:58 Urine Culture - Final Urine,Clean Catch A&P Assessment and plan (1) NSTEMI (non-ST elevated myocardial infarction): (2) ROSCOE (acute kidney injury): (3) Acute worsening of stage 3 chronic kidney disease: (4) High anion gap metabolic acidosis: (5) Chronic prostatitis: (6) CLL (chronic lymphocytic leukemia): (7) Peripheral neuropathy: (8) Diabetic neuropathy: (9) Pneumonia: Plan Current required pneumonia currently on Augmentin and ceftriaxone Non-STEMI Currently on aspirin Plavix and heparin drip He will finish heparin drip 48 hours this evening then he can be transfused 2 DVT prophylaxis I will do stress test tomorrow he is not complain of chest pain no EKG or infarctive changes, chest pain-free Echo showing no significant wall motion abnormality however there is a comment that it could not be evaluated on the current echo Diastolic CHF exacerbation Will give him low-dose diuretic today Acute on chronic kidney disease stage III Baseline creatinine 1 2 Creatinine slightly better today Patient nephro recommendation Hernandez catheter placed Significant urine output Post renal obstructive pattern/component also present Spoke with the family Appreciate nephro and oncology recommendations Patient is type II diabetic continue sliding scale of insulin N.p.o. after midnight for stress in the morning Attestations Medical Necessity Statement*: Continue medical management Diagnoses NSTEMI (non-ST elevated myocardial infarction) I21.4 ROSCOE (acute kidney injury) N17.9 Acute worsening of stage 3 chronic kidney disease N18.30 High anion gap metabolic acidosis E87.29 Chronic prostatitis N41.1 CLL (chronic lymphocytic leukemia) C91.10 Peripheral neuropathy G62.9 Diabetic neuropathy E11.40 Pneumonia J18.9
--- NOTE | 2023-08-01 08:50 | ECG_ITS ---
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 Interpretive Statements NAME OF STUDY: LEXISCAN SESTAMIBI STRESS TEST INDICATION: [Nstemi, ] Procedure: At the baseline, the blood pressure was 110/41 mmHg with a heart rate of 64 bpm. The electrocardiogram showed normal sinus rhythm, interventricular conduction delay with normal ST and T's. The Lexiscan was infused over a period of 20 seconds. A total of 0.4 mg of Lexiscan was infused. The stress phase was continued for a total of 5 minutes. Heart rate was at the end of stress phase was 60 bpm and a blood pressure of 113/42 mmHg. The EKG at the peak infusion revealed normal sinus rhythm with no significant ST-T wave changes. Sestamibi was injected 20 seconds after the Lexiscan infusion. Blood pressure at the end of recovery phase was 112/51 mmHg with a heart rate of 69 bpm. Conclusion: 1. Normal EKG response to Lexiscan infusion 2. No Lexiscan induced chest pain or cardiac arrhythmia. 3. Normal blood pressure and heart rate response. 4. Sestamibi/sestamibi perfusion scan pending; see separate report. Electronically Signed On 08-13-2023 11:58:48 PIPING DESIGNER by Doug Fountain M.D. [id number]
[2023-08-01 09:35] LABS: Partial Thromboplastin Time 50.2 SECONDS (23.9-36.7)
[2023-08-01] MEDS: lactulose oral liq 20 gm/30 mL UDC 10 GM PO (09:35)
[2023-08-01] MEDS: FUROsemide 10 mg/mL SDV 4mL 40 MG IVP (09:36)
[2023-08-01] MEDS: sennosides-docusate Tablet 1 TAB PO (09:36)
--- NOTE | 2023-08-01 10:29 | PC.PT ---
Therapist attempted to see patient at 9:30, but he declined wanting to get up walk/exercise due to being very tired. He was sitting up in chair upon therapist arrival, appearing to be asleep. He was unable to hold consistent conversation. Nurse came into the room and reported he had recently taken pain meds and they might be making him sleepy. He wanted to take a nap first and then attempt walking later today. Therapist exited with nurse still present in room.
[2023-08-01 11:47] LABS: Glucose Point of Care 175 mg/dL (70-110)
--- NOTE | 2023-08-01 12:55 | P.PN_ITS ---
Subjective 2 Subjective: somnolent Medications: Reviewed: Yes Vitals/I&O/Wt Last Vital Signs Temp 97.5 F L 08/01/23 11:46 Pulse 82 08/01/23 11:46 Resp 18 08/01/23 11:46 BP 133/63 08/01/23 11:46 Pulse Ox 90 08/01/23 11:46 O2 Del Method Nasal Cannula 08/01/23 11:46 O2 Flow Rate 6 08/01/23 10:49 07/31/23 08/01/23 08/01/23 22:59 06:59 14:59 Intake Total 500.533 / 1105.446 284.554 / 1390.000 225.143 / 225.143 Output Total 875 / 875 300 / 1175 Balance -374.467 / 230.446 -15.446 / 215.000 225.143 / 225.143 Weight last 48 hrs Weight 90.01 kg Weight 89.896 kg Physical Exam 2 Narrative: somnolent No distres s Urinary Catheter Management: Hernandez: Cath Placed During This Visit: yes Reason for Continuing Indwelling Catheter: Other Urinary Catheter Date of Insertion: 07/30/23 Urinary Catheter Time of Insertion: 12:31 Data 08/01/23 02:29 08/01/23 02:29 Micro: Microbiology 07/29/23 11:58 Urine Culture - Final Urine,Clean Catch A&P Assessment and plan (1) ROSCOE (acute kidney injury): Plan 1. Acute kidney injury: Baseline creatinine not available, creatinine stable at 3 range currently associated with metabolic acidosis. Recent urine output reasonable. Etiology of ROSCOE likely prerenal, rhabdo, in the setting of CLL . -Continue to monitor, encourage p.o. intake, off IV fluids,on 5 L fio2 -Can give as needed Lasix if required for respiratory distress - Cr slightly better bit remains uremic , watch closely ,may require HD -Avoid IV contrast studies 2. Metabolic acidosis: Added Bicitra 3. Rhabdomyolysis:, CK is in 500 range monitor off IV fluids 4. CLL : seen by hematology oncology, Patient evaluated using audiovisual cart. Time spent 40 minutes. Attestations 2 Medical Necessity Statement*: oer [facility] team Coding Level of Care Code Acute Code for [facility] Diagnoses ROSCOE (acute kidney injury) N17.9
[2023-08-01] MEDS: ondansetron 2 mg/ML SDV 2 mL 4 MG IVP (14:54)
[2023-08-01 16:35] LABS: Partial Thromboplastin Time 59.5 SECONDS (23.9-36.7)
[2023-08-01 16:50] LABS: Glucose Point of Care 114 mg/dL (70-110)
[2023-08-01 21:19] LABS: Glucose Point of Care 136 mg/dL (70-110)
[2023-08-01 23:12] LABS: Partial Thromboplastin Time 58.4 SECONDS (23.9-36.7)
[2023-08-02] VITALS (11 sets, daily range): BP systolic 112–144; BP diastolic 43–72; PULSE 60–92; RESP 16–19; TEMP 36.2–36.8; O2SAT 92–95
[2023-08-02] MEDS: heparin drip 25,000 UNIT/500 ML PREMIX 30 UNIT IV (02:47)
[2023-08-02 04:53] LABS: Hematocrit 30.3 % (37-53); Lymphocytes # 75.8 10^3/uL (0.8-4.8); Lymphocytes % 82.5 %; Mean Corpuscular Hemoglobin 28.9 pg (27-33); Mean Corpuscular Volume 93.2 fl (82-101); Mean Platelet Volume 10.6 fL (7.4-10.4); Monocytes % 1.1 %; Neutrophils # 13.88 10^3/uL (1.8-7.7); Neutrophils % 15.1 %; Nucleated Red Blood Cells % 0 %; Platelet Count 225 10^3/cmm (157-399); Red Blood Count 3.25 10^6/uL (3.85-5.65); Red Cell Distribution Width 16.2 % (12.1-15.1)
[2023-08-02 05:00] LABS: White Blood Count 91.88 10^3/uL (3.29-11.43)
[2023-08-02 05:04] LABS: Partial Thromboplastin Time 54.5 SECONDS (23.9-36.7)
[2023-08-02 05:12] LABS: Anion Gap 22.6 (5-19); Calcium 8.1 mg/dL (8.5-10.5); Carbon Dioxide 17 mmol/L (22-29); Chloride 95 mmol/L (98-107); Glucose 158 mg/dL (65-115); Osmolality Calculated 308 mOsm/kg (285-295); Potassium 4.6 mmol/L (3.5-5.1); Sodium 130 mmol/L (136-145)
[2023-08-02] MEDS: heparin 5,000 unit/mL INJ 1 mL IV (05:27)
[2023-08-02 05:43] LABS: Blood Urea Nitrogen 110 mg/dL (8-23)
[2023-08-02] MEDS: regadenoson 0.4 Mg/5 ml Syringe IVP (07:25)
[2023-08-02] MEDS: aminophylline 25 mg/mL SDV 10 mL IVP (07:47)
--- NOTE | 2023-08-02 08:00 | NMCV_ITS ---
NM luzma perf SPECT r/s* [id number] Garett Matos Age: 82 Gender: M : 1940 Exam Date: 08/02/2023 06:30 Ordering Phys: Korey Saeed MD Technologist: MASTER Love Exam Location: [facility] Indications: CHEST PAIN STRESS TEST Please see separate stress test report in [facility] for full findings IMAGE PROTOCOL Rest/Stress 1 Lexiscan Day Radiopharmaceutical Dose (mCi) Administration Site Administered by Rest: Tc-99m 11.0 IV MASTER Bledsoe Sestamibi Stress:Tc-99m 32.9 IV MASTER Bledsoe Sestamibi Rest: 02-Aug-2023 60 Discovery 630 Stress: 02-Aug-2023 30 Discovery 630 0.4mg Lexiscan. Supine position only as patient was unable to lay prone. SPECT RESULTS Technical Quality: Excellent Raw Data Analysis: Normal Image Corrections: No attenuation or motion correction applied Summed Stress Score: 8 Summed Rest Score: 5 Summed Difference Score: 5 PERFUSION FINDINGS There is large sized, mostly reversible perfusion defect noted in inferior wall. This is consistent with small area of prior infarct with large area of lore-infarct ischemia in RCA territory. FUNCTIONAL RESULTS (calculated via Gated SPECT) Stress Image LV EF (%): 73 Stress EDV (mL):108 TID: 1.22 Stress ESV (mL):29 FUNCTIONAL FINDINGS: LV systolic function is normal. TID ratio is elevated and is 1.22 IMPRESSIONS 1. Abnormal myocardial perfusion imaging with small area of prior infarct with large lore-infarct ischemia in the RCA territory. 2. LV systolic function is normal. 3. TID ratio is elevated. This may represent subendocardial ischemia versus multivessel coronary artery disease. Doug Fountain MD (Electronically Signed) Final Date: 02 August 2023 14:04 S
[2023-08-02 08:50] LABS: Glucose Point of Care 184 mg/dL (70-110)
[2023-08-02] MEDS: sodium chloride 0.9% 1,000 ML 75 ML IV (09:52)
[2023-08-02] MEDS: cefTRIAXone 1,000 MG in sodium chloride 0.9% (plus) 50 ML 100 MG IV (09:53)
[2023-08-02] MEDS: amoxicillin-clav 875-125 mg Tablet 1 TAB PO ×2 (09:53→17:40)
[2023-08-02] MEDS: clopidogrel 75 mg Tablet PO (09:53)
[2023-08-02] MEDS: aspirin 81 mg EC Tablet PO (09:53)
[2023-08-02] MEDS: sennosides-docusate Tablet 1 TAB PO (09:53)
[2023-08-02] MEDS: metoprolol tartrate 25 mg Tablet PO (09:54)
[2023-08-02 09:58] LABS: ABG PCO2 43.8 mmHg (35-45); Arterial Blood Gas Hematocrit 29.7 % (42-52); Base Excess ABG -10.3 mmol/L (-2.0-2.0); Blood Gas Allen Test Pos; Blood Gas Sample Type Arterial; HCO3 ABG 17.2 mmol/L (22-26)
[2023-08-02 10:00] LABS: Blood Gas Operator Identificat MONRO; Blood Gas Sample Site Radial, left; Oxygen Device NC; PO2 FiO2 Ratio Arterial Blood 0
--- NOTE | 2023-08-02 10:38 | P.PN_ITS ---
Subjective 2 Subjective: Patient came back on stress test, very drowsy Able to open his eyes on verbal commands, able to answer few questions then he goes back to sleep ABG requested which showed metabolic acidosis related to uremia BUN worsening patient could be having uremic symptoms, spoke with Bhavana Carney, she is wanting to try a trial of IV fluids today by tomorrow if mentation and uremic symptoms do not improve will go ahead will place tunneled dialysis catheter This morning heparin drip discontinued Vitals/I&O/Wt Last Vital Signs Temp 97.5 F L 08/02/23 08:00 Pulse 64 08/02/23 10:14 Resp 18 08/02/23 10:14 BP 130/72 08/02/23 08:00 Pulse Ox 95 08/02/23 10:14 O2 Del Method Nasal Cannula 08/02/23 10:14 O2 Flow Rate 6 08/02/23 10:14 08/01/23 08/02/23 08/02/23 22:59 06:59 14:59 Intake Total 427 / 892.143 335.857 / 1228.000 Output Total 200 / 800 550 / 1350 Balance 227 / 92.143 -214.143 / -122.000 Weight last 48 hrs Weight 89.131 kg Weight 90.01 kg Physical Exam 2 Narrative: Patient is oriented to himself Currently on 4 L nasal cannula Heparin drip turned off GCS 15 Nonfocal neuroexam Able to move extremities Able to answer simple questions Verbally redirectable Hernandez catheter in place No active chest pain 1, S2 Bilateral breath sounds without rhonchi Urinary Catheter Management: Hernandez: Cath Placed During This Visit: yes Reason for Continuing Indwelling Catheter: Accurate Measurement of Urinary Output in Critically Ill Patients Urinary Catheter Date of Insertion: 07/30/23 Urinary Catheter Time of Insertion: 12:31 Data 08/02/23 04:33 08/02/23 04:33 A&P Assessment and plan (1) NSTEMI (non-ST elevated myocardial infarction): (2) Atrial fibrillation: (3) Hyperglycemia: (4) Acute worsening of stage 3 chronic kidney disease: (5) High anion gap metabolic acidosis: (6) CLL (chronic lymphocytic leukemia): (7) Rhabdomyolysis: (8) Fall: (9) Pneumonia: (10) Diabetic neuropathy: Plan Acute on chronic kidney disease stage III Progressing Uremia symptoms noted Patient most likely will need dialysis, will place tunneled dialysis catheter by tomorrow if no improvement spoke with Dr. Renteria at today trial of IV fluids Community-acquired pneumonia continue antibiotics he is afebrile currently requiring 3 to 4 L of oxygen CLL: Will need outpatient workup Leukocytosis improving Non-STEMI: Hold Plavix Continue aspirin Discontinue heparin as we have finished 48 hours Will follow-up with stress report echo unremarkable other than preserved action fraction A-fib without RVR continue AV angela blocking agent Hold off on therapeutic anticoagulating agent other than DVT prophylaxis Hyponatremia could be related to poor p.o. intake Full code Cardiac consistent carb diet Insulin with sliding scale Has neuropathy Attestations 2 Medical Necessity Statement*: Continue medical management Diagnoses NSTEMI (non-ST elevated myocardial infarction) I21.4 Atrial fibrillation I48.91 Hyperglycemia R73.9 Acute worsening of stage 3 chronic kidney disease N18.30 High anion gap metabolic acidosis E87.29 CLL (chronic lymphocytic leukemia) C91.10 Rhabdomyolysis M62.82 Fall W19.XXXA Pneumonia J18.9 Diabetic neuropathy E11.40
[2023-08-02 11:02] LABS: Glucose Point of Care 193 mg/dL (70-110)
[2023-08-02] MEDS: insulin lispro 100 unit/1 mL SUBCUT (11:16)
[2023-08-02] MEDS: calcium gluconate 0.1 gm/mL 10% SDV 10mL 1 GM IVP (11:17)
[2023-08-02] MEDS: heparin 5,000 unit/mL INJ 1 mL 5000 UNIT SUBCUT (11:18)
[2023-08-02] MEDS: sodium bicarbonate 50 MEQ in sodium chloride 0.45% 1,000 ML 100 MEQ IV (11:22)
--- NOTE | 2023-08-02 11:57 | PC.NURSE ---
Cindy Valadez(sister) called to check on patient, she was not on PHI. This nurse asked patient if it was okay that we speak to his sister Cindy about his care, he stated yes that's fine. Pt alert and oriented x3 at this time.
[2023-08-02 12:10] LABS: Partial Thromboplastin Time 36.2 SECONDS (23.9-36.7)
[2023-08-02 16:12] LABS: Glucose Point of Care 108 mg/dL (70-110)
[2023-08-02 16:26] LABS: Calcium 8.4 mg/dL (8.5-10.5); Carbon Dioxide 16 mmol/L (22-29); Chloride 97 mmol/L (98-107); Glucose 116 mg/dL (65-115); Sodium 132 mmol/L (136-145)
[2023-08-02 16:38] LABS: Anion Gap 24.3 (5-19); Osmolality Calculated 316 mOsm/kg (285-295); Potassium 5.3 mmol/L (3.5-5.1)
[2023-08-02 16:42] LABS: Blood Urea Nitrogen 128 mg/dL (8-23)
[2023-08-02 16:45] LABS: Anti-Nuclear Antibody Screen NEGATIVE (NEGATIVE)
[2023-08-02] MEDS: insulin glargine 100 units/1 mL 10 UNIT SUBCUT (20:07)
--- NOTE | 2023-08-02 20:15 | PC.NURSE ---
Pt's heart rate in the upper 50s. Notified Dr Regalado, received orders to hold metoprolol.
[2023-08-02 20:22] LABS: Glucose Point of Care 168 mg/dL (70-110)
--- NOTE | 2023-08-02 20:30 | P.PN_ITS ---
Subjective 2 Subjective: somnolent Medications: Reviewed: Yes Vitals/I&O/Wt Last Vital Signs Temp 98.2 F 08/02/23 16:19 Pulse 61 08/02/23 16:19 Resp 19 H 08/02/23 16:19 BP 136/65 08/02/23 16:19 Pulse Ox 95 08/02/23 16:19 O2 Del Method Nasal Cannula 08/02/23 16:19 O2 Flow Rate 6 08/02/23 20:18 08/02/23 08/02/23 08/02/23 06:59 14:59 22:59 Intake Total 335.857 / 1228.000 317.733 / 317.733 270 / 587.733 Output Total 550 / 1350 325 / 325 Balance -214.143 / -122.000 317.733 / 317.733 -55 / 262.733 Weight last 48 hrs Weight 89.131 kg Weight 90.01 kg Physical Exam 2 Narrative: somnolent + edema Urinary Catheter Management: Hernandez: Cath Placed During This Visit: yes Reason for Continuing Indwelling Catheter: Accurate Measurement of Urinary Output in Critically Ill Patients Urinary Catheter Date of Insertion: 07/30/23 Urinary Catheter Time of Insertion: 12:31 Data 08/02/23 04:33 08/02/23 15:53 A&P Assessment and plan (1) ROSCOE (acute kidney injury): Plan 1. Acute kidney injury: Baseline creatinine not available, creatinine at 3 range currently associated with metabolic acidosis. Etiology of ROSCOE likely prerenal, rhabdo, in the setting of CLL . - renal fxn worsening with severe uremia - Getting IVFs, if no improvement , will plan to place Tunnelled catheter in AM and start HD -Avoid IV contrast studies 2. Metabolic acidosis: Added Bicitra, bicarb gtt 3. Rhabdomyolysis:, CK is in 500 range monitor on IV fluids 4. CLL : seen by hematology oncology, Patient evaluated using audiovisual cart. Time spent 20 minutes. Attestations 2 Medical Necessity Statement*: per medicine team Coding Level of Care Code Acute Code for [facility] Diagnoses ROSCOE (acute kidney injury) N17.9
[2023-08-02] MEDS: sodium bicarbonate 150 MEQ in dextrose 5% 1,000 ML 100 MEQ IV (20:50)
[2023-08-02] MEDS: sodium bicarbonate 8.4% 1 mEq/mL 50mL Syr 50 MEQ IVP (20:50)
[2023-08-02] MEDS: FUROsemide 10 mg/mL SDV 10mL 60 MG IVP (20:51)
[2023-08-03] VITALS (27 sets, daily range): BP systolic 110–148; BP diastolic 43–74; PULSE 64–112; RESP 9–31; TEMP 36.1–36.2; O2SAT 87–100
[2023-08-03] MEDS: heparin 5,000 unit/mL INJ 1 mL 5000 UNIT SUBCUT ×2 (01:15→22:32)
[2023-08-03 04:11] LABS: Basophils # 0.1 10^3/uL (0.0-0.1); Basophils % 0.1 %; Hematocrit 27.5 % (37-53); Lymphocytes # 66.6 10^3/uL (0.8-4.8); Lymphocytes % 84.7 %; Mean Corpuscular Hemoglobin 28.9 pg (27-33); Mean Corpuscular Volume 90.2 fl (82-101); Mean Platelet Volume 10.7 fL (7.4-10.4); Monocytes # 0.6 10^3/uL (0.2-0.9); Monocytes % 0.8 %; Neutrophils # 10.21 10^3/uL (1.8-7.7); Nucleated Red Blood Cells % 0 %; Platelet Count 252 10^3/cmm (157-399); Red Blood Count 3.05 10^6/uL (3.85-5.65); Red Cell Distribution Width 16.5 % (12.1-15.1)
[2023-08-03 04:33] LABS: Calcium 6.9 mg/dL (8.5-10.5); Carbon Dioxide 18 mmol/L (22-29); Chloride 97 mmol/L (98-107); Glucose 266 mg/dL (65-115); Sodium 135 mmol/L (136-145)
[2023-08-03 04:46] LABS: Slide Review Slide Review Perform
[2023-08-03 04:50] LABS: Anion Gap 25.2 (5-19); Osmolality Calculated 333 mOsm/kg (285-295); Potassium 5.2 mmol/L (3.5-5.1); White Blood Count 78.58 10^3/uL (3.29-11.43)
[2023-08-03 04:51] LABS: Blood Urea Nitrogen 136 mg/dL (8-23)
[2023-08-03] MEDS: morphine IR 15 mg Tablet PO (06:08)
[2023-08-03 06:29] LABS: Glucose Point of Care 266 mg/dL (70-110)
[2023-08-03 07:28] LABS: Hepatitis B Surface AB < 3.5 (11.5-1000); Hepatitis B Surface Antigen Non-Reactive (Nonreactive)
[2023-08-03] MEDS: sodium bicarbonate 150 MEQ in dextrose 5% 1,000 ML 100 MEQ IV (08:36)
--- NOTE | 2023-08-03 09:18 | PC.NURSE ---
Dr. Saeed made rounds this am. Pt orientation has changed. Pt cannot answer questions or follow commands. Dr. Saeed elects to transfer pt to ICU. States he will contact family and discuss plan with them. OR arrives to take pt. down for dialysis cath. Belongings sent to ICU and report given by this nurse to ICU nurse.
--- NOTE | 2023-08-03 09:33 | P.CONIM_ITS ---
Providers/Reason For Consult 2 Consulting Physician/Specialty*: Dr. Haris Shen, DO/General surgery Reason for Consult*: Request for permacath placement Attending Physician: Korey Saeed MD Primary Care Provider: Jessi Trinidad History of Present Illness History of Present Illness Garett Matos is a 82 year old male with CLL who is currently in renal failure. Patient has failed conservative treatment and nephrology and the hospitalist have requested a permacath. Patient is not oriented to place or time. HPI and review of systems are limited secondary to this. Consent was obtained from the patient's daughter. Review of Systems 2 General: Reports: ROS unobtainable due to medical condition Medications/Allergies Home Medications Medication Instructions Recorded Confirmed Last Taken Type allopurinol 100 mg tablet 100 mg PO DAILY 09/12/19 07/29/23 Unknown History aspirin 81 mg tablet,delayed 81 mg PO DAILY 09/12/19 07/29/23 Unknown History release clopidogrel 75 mg tablet (Plavix) 75 mg PO DAILY 09/12/19 07/29/23 Unknown History esomeprazole magnesium 40 mg 40 mg PO DAILY 09/12/19 07/29/23 Unknown History capsule,delayed release fluticasone propionate 50 1 spray intranasal DAILY 09/12/19 07/29/23 Unknown History mcg/actuation nasal spray,suspension gabapentin 400 mg capsule 400 mg PO DAILY 09/12/19 07/29/23 Unknown History glipizide 10 mg tablet 10 mg PO DAILY 09/12/19 07/29/23 Unknown History insulin human U-100 NPH-regulr 50 unit SUBCUT DAILY 09/12/19 07/29/23 Unknown History 70-30 mix 100 unit/mL subcutaneous susp (Humulin 70/30 U-100 Insulin) levothyroxine 100 mcg capsule 100 mcg PO DAILY 09/12/19 07/29/23 Unknown History nitroglycerin 0.4 mg/hr 1 patch transdermal DAILY 09/12/19 07/29/23 Unknown History transdermal 24 hour patch (Nitro-Dur) spironolactone 25 mg tablet 25 mg PO DAILY 09/12/19 07/29/23 Unknown History bumetanide 1 mg tablet 1 mg PO BID 05/01/20 07/29/23 Unknown History finasteride 5 mg tablet 5 mg PO DAILY #90 tabs 05/29/22 07/29/23 Unknown Rx alfuzosin 10 mg tablet,extended 10 mg PO DAILY 07/29/23 07/29/23 Unknown History release 24 hr cetirizine 10 mg tablet 10 mg PO DAILY 07/29/23 07/29/23 Unknown History Allergies Allergy/AdvReac Type Severity Reaction Status Date / Time cefaclor AdvReac Intermediate ADR-Itching Verified 07/29/23 14:24 Penicillins AdvReac Intermediate ADR-Itching Verified 07/29/23 14:24 Sulfa (Sulfonamide AdvReac Intermediate ADR-Itching Verified 07/29/23 14:24 Antibiotics) Current Medications Generic Name Dose Route Start Last Admin Trade Name Freq PRN Reason Stop Dose Admin Albuterol/Ipratropium 3 ml 07/29/23 16:33 07/31/23 09:55 Ipratropium-Albuterol 3 Ml Neb INHALATION 3 ml Q6H PRN Administration SHORTNESS OF BREATH Amoxicillin/Clavulanate Potassium 1 tab 07/31/23 18:00 08/03/23 08:51 Amoxicillin-Clav 875-125 Mg Tablet PO Not Given BID [facility] Protocol Aspirin 81 mg 08/01/23 09:00 08/03/23 08:51 Aspirin 81 Mg Ec Tablet PO Not Given DAILY [facility] Clopidogrel Bisulfate 75 mg 08/01/23 09:00 08/02/23 09:53 Clopidogrel 75 Mg Tablet PO 75 mg DAILY [facility] Administration Denture Adhesive 1 each 07/30/23 19:19 07/30/23 23:58 Efferdent Effervescent DENTAL 1 each PRN PRN Administration clean dentures Heparin Sodium (Porcine) 5,000 unit 08/02/23 11:00 08/03/23 01:15 Heparin 5,000 Unit/Ml Inj 1 Ml SUBCUT 5,000 unit Q12H [facility] Administration Ceftriaxone Sodium 1,000 mg/ 50 mls @ 100 mls/hr 07/30/23 09:00 08/02/23 10:49 Sodium Chloride IV Infused DAILY [facility] Infusion Protocol Sodium Bicarbonate 150 meq/ 1,150 mls @ 100 mls/hr 08/02/23 09:45 08/03/23 08:36 Dextrose IV 100 mls/hr .[id number] [facility] Administration Insulin Glargine 10 unit 07/29/23 21:00 08/02/23 20:07 Insulin Glargine 100 Units/1 Ml SUBCUT 10 unit BEDTIME [facility] Administration Insulin Human Lispro 0 unit 07/29/23 18:00 08/03/23 08:04 Insulin Lispro 100 Unit/1 Ml SUBCUT Not Given TIDWM [facility] Protocol Morphine Sulfate 15 mg 07/29/23 16:33 08/03/23 06:08 Morphine Ir 15 Mg Tablet PO 15 mg Q6H PRN Administration MODERATE PAIN Ondansetron HCl 4 mg 07/29/23 16:33 08/01/23 14:54 Ondansetron 2 Mg/Ml Sdv 2 Ml IVP 4 mg Q6H PRN Administration NAUSEA AND VOMITING Senna/Docusate Sodium 1 tab 08/01/23 09:00 08/02/23 09:53 Sennosides-Docusate Tablet PO 1 tab DAILY [facility] Administration PFSH Acute 2 PFSH: Medical History Lymphoma Ulcerative colitis History of myocardial infarction SVT (supraventricular tachycardia) Hypertension Nocturnal hypoxemia Morbid obesity due to excess calories Hyperlipemia GERD (gastroesophageal reflux disease) Gastroparesis Venous stasis dermatitis WENDY (obstructive sleep apnea) Hypothyroidism Chronic diastolic heart failure Chronic atrial fibrillation Type 2 diabetes mellitus BPH with urinary obstruction Chronic prostatitis Surgical History History of colonoscopy with polypectomy Hx of cholecystectomy Hx of heart artery stent Hx of bilateral cataract extraction Family History Mother , AT AGE 59 BONE CANCER Cancer Father , AT AGE 95 Congestive heart failure Social History Smoking and tobacco/nicotine status: former use of tobacco/nicotine Alcohol intake: never Substance/Drug Use: unknown Adopted: No Caregiver/support person: No Lives independently: No Household members: spouse Marital status: Current occupational status: retired Current gender identity: Male Vitals/I&O/Wt Last Vital Signs Temp 97.2 F L 08/03/23 04:00 Pulse 64 08/03/23 07:47 Resp 18 08/03/23 06:08 BP 125/60 08/03/23 07:47 Pulse Ox 96 08/03/23 07:47 O2 Del Method Nasal Cannula 08/03/23 07:47 O2 Flow Rate 6 02/13/24 07:56 08/02/23 08/03/23 08/03/23 22:59 06:59 14:59 Intake Total 1486.667 / 2763.766 7188 / 1150 Output Total 325 / 325 500 / 825 Balance 1161.667 / 1479.400 -500 / 843.835 9735 / 1150 Weight last 48 hrs Weight 204 lb 3.2 oz Weight 196 lb 8 oz Physical Exam 2 Narrative: General : Patient is well developed , he was sleeping with his eyes open but awoke to my voice. He is oriented only to person not to time or place Head : Normal cephalic, a-traumatic. Ears : Pinnae and external canal are normal. Hearing is normal. Eyes : PERRLA, Sclera and injection are normal. No conjunctival discharge. Nose : Mucous membranes are without erythema. Throat : buccal mucosa is normal, gums are without significant recession or hypertrophy. Lungs : Equal chest rise bilaterally, no use of accessory muscles, trachea is midline. Cor : Rate and rhythm are normal. Abdomen : Soft, ND, NT, no g/r/m Extremities : No edema, no cyanosis or clubbing, dorsalis pedis pulses are present bilaterally, non-tender to palpation of calves. Upper extremities are normal bilaterally. Back : non-tender to palpation, no CVA tenderness. Neuro : CN II - XII intact, Upper and lower extremities have equal and full strength Urinary Catheter Management: Hernandez: Cath Placed During This Visit: yes Reason for Continuing Indwelling Catheter: Other Urinary Catheter Date of Insertion: 07/30/23 Urinary Catheter Time of Insertion: 12:31 Data 08/03/23 04:00 08/03/23 04:00 A&P Assessment and plan (1) ROSCOE (acute kidney injury): (2) Acute worsening of stage 3 chronic kidney disease: (3) High anion gap metabolic acidosis: (4) CLL (chronic lymphocytic leukemia): Plan Permacath placement The risks and benefits of the procedure, including but not limited to, bleeding, infection, infection requiring Mediport removal antibiotic therapy and repeat surgery, damage to surrounding structures, scar, numbness, pain, pneumothorax requiring thoracostomy tube, were explained to the patient's daughter. She is understanding of the risks and wishes to proceed. Coding Level of Care Code 47723 Diagnoses ROSCOE (acute kidney injury) N17.9 Acute worsening of stage 3 chronic kidney disease N18.30 High anion gap metabolic acidosis E87.29 CLL (chronic lymphocytic leukemia) C91.10
--- NOTE | 2023-08-03 09:36 | SC_ITS ---
WS: [id number] C-ARM RADIOGRAPHS CHEST; 2 IMAGES HISTORY: Permacath placement COMPARISON: None available. Intraoperative imaging during permacath placement. Permacath terminates in the region of the RIGHT at rium/aorta caval junction. IMPRESSION: Intraoperative imaging during permacath placement.
--- NOTE | 2023-08-03 09:36 | XRR_ITS ---
PROCEDURE INFORMATION: Exam: XR Chest Exam date and time: 08/03/2023 12:23 PM Age: 82 years old Clinical indication: Device placement; Other: Permacath placement; Prior surgery; Surgery date: Post-operative (0-2 days); Additional info: Postop permacath placement TECHNIQUE: Imaging protocol: Radiologic exam of the chest. Views: 1 view. COMPARISON: CR (CHEST, ) 07/31/2023 5:19 AM FINDINGS: Tubes, catheters and devices: There is a right internal jugular central line with its tip in the right atrium. Lungs: There is bilateral lower lung zone airspace disease with blunting of the left costophrenic angle, suggestive of pleural effusion. Pleural spaces: No pneumothorax. Heart/Mediastinum: Unremarkable. Mild cardiomegaly. Bones/joints: Mild degenerative disease of the left acromioclavicular joint.. Other findings: There are arch calcifications. XR/XR chest 1V portable [id number] IMPRESSION: 1. Bilateral lower lung zone airspace disease. 2. Right internal jugular PermCath is in satisfactory position. No pneumothorax.
--- NOTE | 2023-08-03 09:58 | P.PN_ITS ---
Subjective 2 Subjective: This morning patient is very confused Asterixis positive He is getting bradycardic as well Positive stress test Hyperkalemia with worsening of uremia I have decided to transfer him to ICU, Spoke with Dr. Shen for tunneled dialysis catheter Spoke with Dr. Fountain who recommended stabilization before angiogram Daughter updated Patient was extremely confused however will be redirectable he was asked me why he is in the hospital, he is able to move his extremities, Vitals/I&O/Wt Last Vital Signs Temp 97 F L 08/03/23 09:52 Pulse 66 08/03/23 09:52 Resp 17 08/03/23 09:52 BP 126/47 08/03/23 09:52 Pulse Ox 94 08/03/23 09:52 O2 Del Method Nasal Cannula 08/03/23 09:52 O2 Flow Rate 6 08/03/23 09:52 08/02/23 08/03/23 08/03/23 22:59 06:59 14:59 Intake Total 1486.667 / 8532.130 5905 / 1150 Output Total 325 / 325 500 / 825 Balance 1161.667 / 1479.400 -500 / 425.080 5027 / 1150 Weight last 48 hrs Weight 92.624 kg Weight 89.131 kg Physical Exam 2 Narrative: Patient is showing signs of uremia with asterixis Mumbling his speech Moving his extremities non purposefully S1, S2 Bradycardic 55-60 Blood pressure 126/47 mmHg Sitting in a recliner Currently on 4 to 5 L Urinary Catheter Management: Hernandez: Cath Placed During This Visit: yes Reason for Continuing Indwelling Catheter: Other Urinary Catheter Date of Insertion: 07/30/23 Urinary Catheter Time of Insertion: 12:31 Data 08/03/23 04:00 08/03/23 04:00 A&P Assessment and plan (1) NSTEMI (non-ST elevated myocardial infarction): (2) Atrial fibrillation: (3) Hyperglycemia: (4) Acute worsening of stage 3 chronic kidney disease: (5) High anion gap metabolic acidosis: (6) BPH with urinary obstruction: (7) CLL (chronic lymphocytic leukemia): (8) Rhabdomyolysis: (9) Fall: (10) Peripheral neuropathy: (11) Diabetic neuropathy: (12) Pneumonia: (13) Uremia: (14) Hyperkalemia: (15) Asterixis: Plan CLL: Leukocytosis improving No signs of hyperviscosity syndrome Acute on chronic kidney disease stage III Uremia worsening Patient is showing signs of uremia will start dialysis today Dialysis catheter to be placed by Dr. Shen Spoke with general surgery today Creatinine is worsening as well Community-acquired pneumonia continue antibiotics Acute on chronic hypoxia related to volume overload and pneumonia currently on 5 to 6 L Non-STEMI: Finish 48 hours of heparin, Will continue aspirin, Plavix Spoke with cardiology: Dr. Fountain recommended angiogram once he is more stable Family updated Start renal dialysis diet or GI soft depending on his mentation after dialysis Patient is full code Hyperkalemia: Uremia: Anticipate improvement with dialysis Patient is getting bradycardic positive stress test RCA territory Rhabdomyolysis: Improving Prognosis: Guarded Attestations 2 Medical Necessity Statement*: Transfer to ICU Coding Level of Care Code Critical Care >/= 30 minutes Critical care time (in minutes): 30 The high probability of a clinically significant, sudden or life threatening deterioration, as referenced in this documentation, required my full and direct attention, intervention and personal management. The critical care time shown is in addition to time spent performing any reported separately billable procedures and includes the following: [x] Data and vital sign review and interpretation [x ] Patient assessment, examination and intervention [x] Medication orders and management [x] Patient/Family updates as able [x] Care Coordination and Documentation. Diagnoses NSTEMI (non-ST elevated myocardial infarction) I21.4 Atrial fibrillation I48.91 Hyperglycemia R73.9 Acute worsening of stage 3 chronic kidney disease N18.30 High anion gap metabolic acidosis E87.29 BPH with urinary obstruction N40.1; N13.8 CLL (chronic lymphocytic leukemia) C91.10 Rhabdomyolysis M62.82 Fall W19.XXXA Peripheral neuropathy G62.9 Diabetic neuropathy E11.40 Pneumonia J18.9 Uremia N19 Hyperkalemia E87.5 Asterixis R27.8
[2023-08-03] MEDS: sodium chloride 0.9% 1,000 ML 30 ML IV (10:03)
[2023-08-03] MEDS: cefTRIAXone 1,000 MG in sodium chloride 0.9% (plus) 50 ML 100 MG IV (10:03)
[2023-08-03 10:14] LABS: Glucose Point of Care 244 mg/dL (70-110)
[2023-08-03 10:59] LABS: ABNORMAL PROTEIN BAND 1 0.2 g/dL (NONE DETECTED); ALBUMIN 2.1 g/dL (3.8-4.8); ALPHA 1 GLOBULIN 0.7 g/dL (0.2-0.3); ALPHA 2 GLOBULIN 1.3 g/dL (0.5-0.9); BETA 1 GLOBULIN 0.3 g/dL (0.4-0.6); BETA 2 GLOBULIN 0.3 g/dL (0.2-0.5); GAMMA GLOBULIN 0.3 g/dL (0.8-1.7)
[2023-08-03] MEDS: lidocaine-epi 2% PF 1:200,000 20 mL SDV (11:49)
--- NOTE | 2023-08-03 11:56 | P.ANESASSM_ITS ---
Pre-Anesthetic Assessment Height/Weight: Height 1.73 m Weight 92.624 kg Temp Pulse Resp BP Pulse Ox O2 Del Method O2 Flow Rate 97 F L 66 17 126/47 94 Nasal Cannula 6 08/03/23 09:52 08/03/23 09:52 08/03/23 09:52 08/03/23 09:52 08/03/23 09:52 08/03/23 09:52 08/03/23 09:52 Operation Date: 08/03/23 10:05 Proposed Procedures p Dialysis Catheter Insertion(Not Applicable) - Haris Shen DO Familial anesthetic complications: none Was Beta Janet taken within 24 hours: N/A Was Clonidine taken within 24 hours: N/A Last intake: Intake Last Liquid Date 07/30/23 Last Liquid Time 17:00 Last Solid Date 07/30/23 Last Solid Time 17:00 Social No alcohol and No tobacco Exam regular rate & rhythm confused CV/HEM Anemia, Coronary Artery Disease and Myocardial Infarction CLL Chronic Renal Insufficiency GI Gastroesophageal Reflux Disease Metabolic Diabetes Mellitus and Thyroid Disease Neuropsych Neuropathy Anesthetic Plan ASA status: 4 Anesthesia: MAC Medications/Allergies Home Medications Medication Instructions Recorded Confirmed Last Taken Type allopurinol 100 mg tablet 100 mg PO DAILY 09/12/19 07/29/23 Unknown History aspirin 81 mg tablet,delayed 81 mg PO DAILY 09/12/19 07/29/23 Unknown History release clopidogrel 75 mg tablet (Plavix) 75 mg PO DAILY 09/12/19 07/29/23 Unknown History esomeprazole magnesium 40 mg 40 mg PO DAILY 09/12/19 07/29/23 Unknown History capsule,delayed release fluticasone propionate 50 1 spray intranasal DAILY 09/12/19 07/29/23 Unknown History mcg/actuation nasal spray,suspension gabapentin 400 mg capsule 400 mg PO DAILY 09/12/19 07/29/23 Unknown History glipizide 10 mg tablet 10 mg PO DAILY 09/12/19 07/29/23 Unknown History insulin human U-100 NPH-regulr 50 unit SUBCUT DAILY 09/12/19 07/29/23 Unknown History 70-30 mix 100 unit/mL subcutaneous susp (Humulin 70/30 U-100 Insulin) levothyroxine 100 mcg capsule 100 mcg PO DAILY 09/12/19 07/29/23 Unknown History nitroglycerin 0.4 mg/hr 1 patch transdermal DAILY 09/12/19 07/29/23 Unknown History transdermal 24 hour patch (Nitro-Dur) spironolactone 25 mg tablet 25 mg PO DAILY 09/12/19 07/29/23 Unknown History bumetanide 1 mg tablet 1 mg PO BID 05/01/20 07/29/23 Unknown History finasteride 5 mg tablet 5 mg PO DAILY #90 tabs 05/29/22 07/29/23 Unknown Rx alfuzosin 10 mg tablet,extended 10 mg PO DAILY 07/29/23 07/29/23 Unknown History release 24 hr cetirizine 10 mg tablet 10 mg PO DAILY 07/29/23 07/29/23 Unknown History Allergies Allergy/AdvReac Type Severity Reaction Status Date / Time cefaclor AdvReac Intermediate ADR-Itching Verified 07/29/23 14:24 Penicillins AdvReac Intermediate ADR-Itching Verified 07/29/23 14:24 Sulfa (Sulfonamide AdvReac Intermediate ADR-Itching Verified 07/29/23 14:24 Antibiotics) Current Medications Generic Name Dose Route Start Last Admin Trade Name Freq PRN Reason Stop Dose Admin Albuterol/Ipratropium 3 ml 07/29/23 16:33 07/31/23 09:55 Ipratropium-Albuterol 3 Ml Neb INHALATION 3 ml Q6H PRN Administration SHORTNESS OF BREATH Amoxicillin/Clavulanate Potassium 1 tab 07/31/23 18:00 08/03/23 08:51 Amoxicillin-Clav 875-125 Mg Tablet PO Not Given BID ON LICENSE OF [facility] Protocol Aspirin 81 mg 08/01/23 09:00 08/03/23 08:51 Aspirin 81 Mg Ec Tablet PO Not Given DAILY ON LICENSE OF [facility] Clopidogrel Bisulfate 75 mg 08/01/23 09:00 08/02/23 09:53 Clopidogrel 75 Mg Tablet PO 75 mg DAILY CAMMY Administration Denture Adhesive 1 each 07/30/23 19:19 07/30/23 23:58 Efferdent Effervescent DENTAL 1 each PRN PRN Administration clean dentures Heparin Sodium (Porcine) 5,000 unit 08/02/23 11:00 08/03/23 01:15 Heparin 5,000 Unit/Ml Inj 1 Ml SUBCUT 5,000 unit Q12H CAMMY Administration Ceftriaxone Sodium 1,000 mg/ 50 mls @ 100 mls/hr 07/30/23 09:00 08/03/23 10:03 Sodium Chloride IV 100 mls/hr DAILY CAMMY Administration Protocol Sodium Bicarbonate 150 meq/ 1,150 mls @ 100 mls/hr 08/02/23 09:45 08/03/23 08:36 Dextrose IV 100 mls/hr .[id number] ACMMY Administration Sodium Chloride 1,000 mls @ 30 mls/hr 08/03/23 10:00 08/03/23 10:03 Sodium Chloride 0.9% IV 08/04/23 09:59 30 mls/hr .Q24H CAMMY Administration Insulin Glargine 10 unit 07/29/23 21:00 08/02/23 20:07 Insulin Glargine 100 Units/1 Ml SUBCUT 10 unit BEDTIME CAMMY Administration Insulin Human Lispro 0 unit 07/29/23 18:00 08/03/23 08:04 Insulin Lispro 100 Unit/1 Ml SUBCUT Not Given TIDWM CAMMY Protocol Morphine Sulfate 15 mg 07/29/23 16:33 08/03/23 06:08 Morphine Ir 15 Mg Tablet PO 15 mg Q6H PRN Administration MODERATE PAIN Ondansetron HCl 4 mg 07/29/23 16:33 08/01/23 14:54 Ondansetron 2 Mg/Ml Sdv 2 Ml IVP 4 mg Q6H PRN Administration NAUSEA AND VOMITING Senna/Docusate Sodium 1 tab 08/01/23 09:00 08/02/23 09:53 Sennosides-Docusate Tablet PO 1 tab DAILY CAMMY Administration PFSH Anesthesia Medical History Lymphoma Ulcerative colitis History of myocardial infarction SVT (supraventricular tachycardia) Hypertension Nocturnal hypoxemia Morbid obesity due to excess calories Hyperlipemia GERD (gastroesophageal reflux disease) Gastroparesis Venous stasis dermatitis WENDY (obstructive sleep apnea) Hypothyroidism Chronic diastolic heart failure Chronic atrial fibrillation Type 2 diabetes mellitus BPH with urinary obstruction Chronic prostatitis Surgical History History of colonoscopy with polypectomy Hx of cholecystectomy Hx of heart artery stent Hx of bilateral cataract extraction Family History Mother , AT AGE 59 BONE CANCER Cancer Father , AT AGE 95 Congestive heart failure Social History Smoking and tobacco/nicotine status: former use of tobacco/nicotine Alcohol intake: never Substance/Drug Use: unknown Adopted: No Caregiver/support person: No Lives independently: No Household members: spouse Marital status: Current occupational status: retired Current gender identity: Male Data Anesthesia 08/03/23 04:00 08/03/23 04:00 Short CBC 08/02/23 08/03/23 Range/Units 04:33 04:00 WBC 91.88 H* 78.58 H* (3.29-11.43) 10^3/uL Hgb 9.40 L 8.80 L (11.27-16.99) g/dL Hct 30.3 L 27.5 L (37-53) % MCV 93.2 90.2 (82-101) fl Plt Count 225 252 (157-399) 10^3/cmm Neut % (Auto) 15.1 13.0 % Neut # (Auto) 13.88 H 10.21 H (1.8-7.7) 10^3/uL BMP 08/02/23 08/02/23 08/03/23 04:33 15:53 04:00 Sodium 130 L 132 L 135 L Potassium 4.6 5.3 H 5.2 H Chloride 95 L 97 L 97 L Carbon Dioxide 17 L 16 L 18 L BUN 110 H* 128 H* 136 H* Creatinine 3.1 H 3.3 H 3.3 H Glucose 158 H 116 H 266 H Calcium 8.1 L 8.4 L 6.9 L Liver Function 07/31/23 Range/Units 10:34 Albumin 2.1 L (3.8-4.8) g/dL Coags 08/01/23 08/01/23 08/02/23 16:14 22:30 04:33 APTT 59.5 H 58.4 H 54.5 H 08/02/23 11:31 APTT 36.2 ABG 08/02/23 09:46 Specimen Type Arterial Sample Site Radial, left ABG pH 7.20 L ABG pCO2 43.8 ABG pO2 81.0 ABG PO2/FiO2 Ratio 0 ABG HCO3 17.2 L ABG Base Excess -10.3 L O2 Delivery Device Nc O2 Liters/Min 6.0 FiO2 44.0 Cardiac Studies: 2 Echocardiogram 02/10/24 Sestamibi Stress Test (Cardiology) 08/01
--- NOTE | 2023-08-03 12:09 | PM.OP ---
Operative Report Date of procedure: August 03, 2023 Pre-op diagnosis: Acute on chronic kidney disease Post-op diagnosis: same Procedure done: Permacath placement Implants: 23 cm PermCath Specimens removed/disposition: none Surgeon: Haris Shen DO Anesthesia: MAC and Local Estimated blood loss (mL): 5 Complications: None apparent Brief History: This is an 82-year-old gentleman who is currently in the ICU with acute on chronic kidney disease. Nephrology requested PermCath placement. Risks and benefits were explained to his daughter. She is understanding of the risks and wished to proceed. Procedure: Patient was taken to the operating room and placed supine on the operating room table. All bony prominences were padded. He was given IV sedation and monitored throughout the case by the anesthesia personnel. SCDs were placed and turned on. The arms were tucked to the side. Patient received Vancomycin preoperatively IV. The bilateral chest wall was prepped and draped in usual sterile fashion using chlorhexidine base prep. Sterile drapes were applied. We did procedure pause prior to beginning. An 18 gauge needle was placed in the right internal jugular vein under ultrasound guidance. Dark, nonpulsatile blood was aspirated. A guidewire was placed through the needle centrally toward the atrial/vena caval junction. Fluoroscopy visualized good placement. The needle was removed and the guidewire was clipped to the drape with a hemostat. Further local anesthetic was infiltrated in the soft tissues of the right chest wall and a #15 blade was used to make a vertical skin incision. A #15 blade was used to make a small skin mary around the guidewire insertion area. The permacath tubing was tunneled through the subcutaneous tissues up to the needle insertion location. Serial dilators were used to serially dilate over the guidewire . A dilator with a peel-away sheath was placed over the guidewire and placed centrally. The guidewire was removed as well as the dilator and the permacath was fed into the split sheath. The split sheath was removed. Both ports were aspirated to reveal dark blood and were flushed with saline only as the patient has a heparin allergy. final fluoroscopy visualization showed no kink in the catheter and the tip of the permacath tubing near the atrial/vena caval junction. Both skin incisions were thoroughly irrigated and suctioned dry. Meticulous hemostasis noted. The internal jugular access site was closed with 4-0 Vicryl in a subcuticular fashion. The skin overlying the permacath was closed in a similar manner. The permacath was then sutured into place using 2-0 nylon in a simple interrupted fashion. skin glue was applied as a topical dressing. This was allowed to dry. Patient was awakened from anesthesia and transferred via her cart to the recovery room in stable condition. All needle, sponge, and instrument counts were correct per the operating personnel x2 counts.
[2023-08-03] MEDS: heparin, porcine 1,000 unit/mL INJ 10 mL 10000 UNIT INTRACATH (12:10)
[2023-08-03 13:07] LABS: Glucose Point of Care 208 mg/dL (70-110)
--- NOTE | 2023-08-03 14:16 | P.PN_ITS ---
Subjective 2 Subjective: s/p tunne;ed cath today somnolent Medications: Reviewed: Yes Vitals/I&O/Wt Last Vital Signs Temp 97 F L 08/03/23 09:52 Pulse 66 08/03/23 09:52 Resp 17 08/03/23 09:52 BP 126/47 08/03/23 09:52 Pulse Ox 94 08/03/23 09:52 O2 Del Method Nasal Cannula 08/03/23 09:52 O2 Flow Rate 6 08/03/23 09:52 08/02/23 08/03/23 08/03/23 22:59 06:59 14:59 Intake Total 1486.667 / 5778.515 8902 / 1150 Output Total 325 / 325 500 / 825 Balance 1161.667 / 1479.400 -500 / 795.310 7561 / 1150 Weight last 48 hrs Weight 92.624 kg Weight 89.131 kg Physical Exam 2 Narrative: somnolent + edema Urinary Catheter Management: Hernandez: Cath Placed During This Visit: yes Reason for Continuing Indwelling Catheter: Other Urinary Catheter Date of Insertion: 07/30/23 Urinary Catheter Time of Insertion: 12:31 Data 08/03/23 04:00 08/03/23 04:00 A&P Assessment and plan (1) ROSCOE (acute kidney injury): Plan 1. Acute kidney injury: Baseline creatinine not available, creatinine at 3 range currently associated with metabolic acidosis. Etiology of ROSCOE likely prerenal, rhabdo, in the setting of CLL . - renal fxn worsening with severe uremia - s/p tunnelled HD catheter placement and HD started -Avoid IV contrast studies 3. Rhabdomyolysis:, CK is in 500 range improved 4. CLL : seen by hematology oncology, Patient evaluated using audiovisual cart. Time spent 20 minutes. Attestations 2 Medical Necessity Statement*: per franko Coding Level of Care Code Acute Code for [facility] Fwd Diagnoses ROSCOE (acute kidney injury) N17.9
--- NOTE | 2023-08-03 15:45 | PC.NURSE ---
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 States he is pt's emergency contact. Misael Schaeffer [phone]
--- NOTE | 2023-08-03 15:49 | ANE.PACU2 ---
Inpatient post-anesthesia follow up: Airway intact: Yes Vital signs: Temperature 97 F Pulse Rate 66 Respiratory Rate 17 Blood Pressure 126/47 Pulse Oximetry 94 Oxygen Delivery Me thod Nasal Cannula Oxygen Flow Rate 6 Fraction of Inspir ed Oxygen Hydration adequate: Yes Nausea and vomiting: No Pain level: 2 Mental status: Baseline
[2023-08-03 18:35] LABS: Glucose Point of Care 138 mg/dL (70-110)
[2023-08-03 21:13] LABS: Glucose Point of Care 161 mg/dL (70-110)
[2023-08-03] MEDS: insulin glargine 100 units/1 mL 10 UNIT SUBCUT (22:32)
[2023-08-04] VITALS (38 sets, daily range): BP systolic 98–144; BP diastolic 39–95; PULSE 66–115; RESP 12–41; TEMP 36.1–37; O2SAT 87–100; BMI 29.9
[2023-08-04] MEDS: acetaminophen 1,000 MG/100 ML PIGGYBACK 400 MG IV (02:44)
[2023-08-04 04:58] LABS: Basophils # 0.3 10^3/uL (0.0-0.1); Basophils % 0.4 %; Hematocrit 29.6 % (37-53); Mean Corpuscular HGB Conc 31.4 g/dL (30-55); Mean Corpuscular Volume 92.2 fl (82-101); Mean Platelet Volume 10.6 fL (7.4-10.4); Monocytes # 0.8 10^3/uL (0.2-0.9); Monocytes % 1.2 %; Neutrophils # 7.63 10^3/uL (1.8-7.7); Neutrophils % 11.5 %; Nucleated Red Blood Cells % 0 %; Platelet Count 219 10^3/cmm (157-399); Red Blood Count 3.21 10^6/uL (3.85-5.65); Red Cell Distribution Width 16.3 % (12.1-15.1)
[2023-08-04 05:19] LABS: Anion Gap 19.1 (5-19); Blood Urea Nitrogen 76 mg/dL (8-23); Calcium 7.5 mg/dL (8.5-10.5); Carbon Dioxide 25 mmol/L (22-29); Chloride 98 mmol/L (98-107); Glucose 155 mg/dL (65-115); Osmolality Calculated 312 mOsm/kg (285-295); Potassium 4.1 mmol/L (3.5-5.1); Sodium 138 mmol/L (136-145)
[2023-08-04 05:23] LABS: Slide Review Slide Review Perform
[2023-08-04 05:25] LABS: White Blood Count 65.89 10^3/uL (3.29-11.43)
[2023-08-04] MEDS: sodium chloride 0.9% 1,000 ML 30 ML IV (06:14)
[2023-08-04 07:45] LABS: Glucose Point of Care 156 mg/dL (70-110)
[2023-08-04] MEDS: cefTRIAXone 1,000 MG in sodium chloride 0.9% (plus) 50 ML 100 MG IV (09:19)
[2023-08-04] MEDS: sennosides-docusate Tablet 1 TAB PO (09:19)
[2023-08-04] MEDS: amoxicillin-clav 875-125 mg Tablet 1 TAB PO ×2 (09:19→17:31)
[2023-08-04] MEDS: aspirin 81 mg EC Tablet PO (09:19)
[2023-08-04] MEDS: insulin lispro 100 unit/1 mL SUBCUT ×3 (09:19→17:31)
[2023-08-04] MEDS: heparin 5,000 unit/mL INJ 1 mL 5000 UNIT SUBCUT ×2 (10:53→23:47)
[2023-08-04 11:50] LABS: Glucose Point of Care 160 mg/dL (70-110)
[2023-08-04 12:43] LABS: Glucose Point of Care 147 mg/dL (70-110)
--- NOTE | 2023-08-04 13:04 | P.PN_ITS ---
Subjective 2 Subjective: Patient more awake and alert as compared to yesterday Able to follow commands, he is talking about a song called not breaking the family Valentine He is able to tell me his date of Vitals/I&O/Wt Last Vital Signs Temp 96.9 F L 08/04/23 09:42 Pulse 100 08/04/23 12:46 Resp 20 H 08/04/23 12:46 BP 127/95 08/04/23 12:46 Pulse Ox 89 L 08/04/23 12:46 O2 Del Method Nasal Cannula 08/04/23 12:46 O2 Flow Rate 3 08/04/23 10:23 08/03/23 08/04/23 08/04/23 22:59 06:59 14:59 Intake Total 100 / 100 Output Total 75 / 75 50 / 125 25 / 25 Balance -75 / 1125 -50 / 1075 75 / 75 Weight last 48 hrs Weight 89.159 kg Weight 92.624 kg Physical Exam 2 Narrative: Patient looks dehydrated More awake and alert Nonfocal neuroexam Desaturating ecchymosis improving GCS 15 S1, S2 variable A-fib without RVR Abdomen soft Tunneled dialysis catheter in place Urinary Catheter Management: Hernandez: Cath Placed During This Visit: yes Reason for Continuing Indwelling Catheter: Accurate Measurement of Urinary Output in Critically Ill Patients Urinary Catheter Date of Insertion: 07/30/23 Urinary Catheter Time of Insertion: 12:31 Data 08/04/23 04:50 08/04/23 04:50 A&P Assessment and plan (1) NSTEMI (non-ST elevated myocardial infarction): (2) Atrial fibrillation: (3) Acute worsening of stage 3 chronic kidney disease: (4) High anion gap metabolic acidosis: (5) Hyperkalemia: (6) BPH with urinary obstruction: (7) Uremia: (8) CLL (chronic lymphocytic leukemia): (9) Rhabdomyolysis: (10) Fall: (11) Peripheral neuropathy: (12) Diabetic neuropathy: (13) Asterixis: Plan Mentation has improved after we started dialysis Uremic symptoms improved as well For session of dialysis yesterday Tunneled dialysis catheter in place CLL: White count improving Community-acquired pneumonia: Continue to biotics no fever currently requiring 3 to 4 L Non-STEMI Will consult cardiology, patient had a positive stress test as well He will need an angiogram He carries history of coronary disease Rhabdomyolysis after sustaining a fall: CPK improved ATN with worsening uremic symptoms started dialysis tunneled dialysis catheter in place patient will need chair time as well He will also need a correction placement considering his significant weakness Continue GI soft diet Cardiology consulted No active chest pain Hemodynamically stable Attestations 2 Medical Necessity Statement*: Continue ICU management Diagnoses NSTEMI (non-ST elevated myocardial infarction) I21.4 Atrial fibrillation I48.91 Acute worsening of stage 3 chronic kidney disease N18.30 High anion gap metabolic acidosis E87.29 Hyperkalemia E87.5 BPH with urinary obstruction N40.1; N13.8 Uremia N19 CLL (chronic lymphocytic leukemia) C91.10 Rhabdomyolysis M62.82 Fall W19.XXXA Peripheral neuropathy G62.9 Diabetic neuropathy E11.40 Asterixis R27.8
--- NOTE | 2023-08-04 14:55 | PC.SOCIAL ---
IMM updated Updated pt's daughter on IMM. No questions voiced. Provided pt a copy. Initialed, dated, & timed copy in chart.
[2023-08-04 14:57] LABS: Glucose Point of Care 151 mg/dL (70-110)
--- NOTE | 2023-08-04 16:32 | P.CONIM_ITS ---
Providers/Reason For Consult 2 Consulting Physician/Specialty*: Doug Fountain MD Reason for Consult*: Dr Saeed Attending Physician: Korey Saeed MD Primary Care Provider: Jessi Trinidad History of Present Illness History of Present Illness Garett Matos is a 82 year old male with prior history of CAD on aspirin and Plavix was admitted to hospital with weakness, fall and nausea vomiting. He was found to have CLL. Also has ROSCOE now requiring dialysis. Cardiology was consulted as his troponin was elevated at admission but trended down since. Initial value was 252. Echo shows normal LV systolic function. He had a stress test that showed small area of infarct with significant lore-infarct ischemia in RCA territory. Patient denies chest pain. EKG showing atrial fibrillation. Review of Systems 2 General: Reports: ROS unobtainable due to medical condition Medications/Allergies Home Medications Medication Instructions Recorded Confirmed Last Taken Type allopurinol 100 mg tablet 100 mg PO DAILY 09/12/19 07/29/23 Unknown History aspirin 81 mg tablet,delayed 81 mg PO DAILY 09/12/19 07/29/23 Unknown History release clopidogrel 75 mg tablet (Plavix) 75 mg PO DAILY 09/12/19 07/29/23 Unknown History esomeprazole magnesium 40 mg 40 mg PO DAILY 09/12/19 07/29/23 Unknown History capsule,delayed release fluticasone propionate 50 1 spray intranasal DAILY 09/12/19 07/29/23 Unknown History mcg/actuation nasal spray,suspension gabapentin 400 mg capsule 400 mg PO DAILY 09/12/19 07/29/23 Unknown History glipizide 10 mg tablet 10 mg PO DAILY 09/12/19 07/29/23 Unknown History insulin human U-100 NPH-regulr 50 unit SUBCUT DAILY 09/12/19 07/29/23 Unknown History 70-30 mix 100 unit/mL subcutaneous susp (Humulin 70/30 U-100 Insulin) levothyroxine 100 mcg capsule 100 mcg PO DAILY 09/12/19 07/29/23 Unknown History nitroglycerin 0.4 mg/hr 1 patch transdermal DAILY 09/12/19 07/29/23 Unknown History transdermal 24 hour patch (Nitro-Dur) spironolactone 25 mg tablet 25 mg PO DAILY 09/12/19 07/29/23 Unknown History bumetanide 1 mg tablet 1 mg PO BID 05/01/20 07/29/23 Unknown History finasteride 5 mg tablet 5 mg PO DAILY #90 tabs 05/29/22 07/29/23 Unknown Rx alfuzosin 10 mg tablet,extended 10 mg PO DAILY 07/29/23 07/29/23 Unknown History release 24 hr cetirizine 10 mg tablet 10 mg PO DAILY 07/29/23 07/29/23 Unknown History Allergies Allergy/AdvReac Type Severity Reaction Status Date / Time cefaclor AdvReac Intermediate ADR-Itching Verified 07/29/23 14:24 Penicillins AdvReac Intermediate ADR-Itching Verified 07/29/23 14:24 Sulfa (Sulfonamide AdvReac Intermediate ADR-Itching Verified 07/29/23 14:24 Antibiotics) Current Medications Generic Name Dose Route Start Last Admin Trade Name Freq PRN Reason Stop Dose Admin Albuterol/Ipratropium 3 ml 07/29/23 16:33 07/31/23 09:55 Ipratropium-Albuterol 3 Ml Neb INHALATION 3 ml Q6H PRN Administration SHORTNESS OF BREATH Amoxicillin/Clavulanate Potassium 1 tab 07/31/23 18:00 08/04/23 09:19 Amoxicillin-Clav 875-125 Mg Tablet PO 1 tab BID CAMMY Administration Protocol Aspirin 81 mg 08/01/23 09:00 08/04/23 09:19 Aspirin 81 Mg Ec Tablet PO 81 mg DAILY CAMMY Administration Clopidogrel Bisulfate 75 mg 08/01/23 09:00 08/02/23 09:53 Clopidogrel 75 Mg Tablet PO 75 mg DAILY CAMMY Administration Denture Adhesive 1 each 07/30/23 19:19 07/30/23 23:58 Efferdent Effervescent DENTAL 1 each PRN PRN Administration clean dentures Heparin Sodium (Porcine) 5,000 unit 08/02/23 11:00 08/04/23 10:53 Heparin 5,000 Unit/Ml Inj 1 Ml SUBCUT 5,000 unit Q12H CAMMY Administration Ceftriaxone Sodium 1,000 mg/ 50 mls @ 100 mls/hr 07/30/23 09:00 08/04/23 12:41 Sodium Chloride IV Infused DAILY ACMMY Infusion Protocol Insulin Glargine 10 unit 07/29/23 21:00 08/03/23 22:32 Insulin Glargine 100 Units/1 Ml SUBCUT 10 unit BEDTIME CAMMY Administration Insulin Human Lispro 0 unit 07/29/23 18:00 08/04/23 14:10 Insulin Lispro 100 Unit/1 Ml SUBCUT 4 unit TIDWM CAMMY Administration Protocol Morphine Sulfate 15 mg 07/29/23 16:33 08/03/23 06:08 Morphine Ir 15 Mg Tablet PO 15 mg Q6H PRN Administration MODERATE PAIN Ondansetron HCl 4 mg 07/29/23 16:33 08/01/23 14:54 Ondansetron 2 Mg/Ml Sdv 2 Ml IVP 4 mg Q6H PRN Administration NAUSEA AND VOMITING Senna/Docusate Sodium 1 tab 08/01/23 09:00 08/04/23 09:19 Sennosides-Docusate Tablet PO 1 tab DAILY CAMMY Administration PFSH Acute 2 PFSH: Medical History (Updated 08/17/23 @ 12:33 by Doug Fountain M.D) ROSCOE (acute kidney injury) Fall Acute worsening of stage 3 chronic kidney disease Baseline creatinine 1.8-2 NSTEMI (non-ST elevated myocardial infarction) Hyperglycemia CLL (chronic lymphocytic leukemia) Peripheral neuropathy Diabetic neuropathy Dehydrated hereditary stomatocytosis Lymphoma Ulcerative colitis History of myocardial infarction SVT (supraventricular tachycardia) Hypertension Nocturnal hypoxemia Morbid obesity due to excess calories Hyperlipemia GERD (gastroesophageal reflux disease) Gastroparesis Venous stasis dermatitis WENDY (obstructive sleep apnea) Hypothyroidism Chronic diastolic heart failure Chronic atrial fibrillation Type 2 diabetes mellitus BPH with urinary obstruction Chronic prostatitis Surgical History History of colonoscopy with polypectomy Hx of cholecystectomy Hx of heart artery stent Hx of bilateral cataract extraction Family History Mother , AT AGE 59 BONE CANCER Cancer Father , AT AGE 95 Congestive heart failure (CHF) Social History Smoking and tobacco/nicotine status: former use of tobacco/nicotine Alcohol intake: never Substance/Drug Use: unknown Adopted: No Caregiver/support person: No Lives independently: No Household members: spouse Marital status: Current occupational status: retired Current gender identity: Male Vitals/I&O/Wt Last Vital Signs Temp 96.9 F L 08/04/23 09:42 Pulse 94 02/14/24 14:14 Resp 17 08/04/23 14:14 BP 140/57 08/04/23 14:14 Pulse Ox 94 08/04/23 14:14 O2 Del Method Nasal Cannula 08/04/23 14:14 O2 Flow Rate 3 08/04/23 10:23 08/04/23 08/04/23 08/04/23 06:59 14:59 22:59 Intake Total 340 / 340 Output Total 50 / 125 25 / 25 Balance -50 / 1075 315 / 315 Weight last 48 hrs Weight 196 lb 9 oz Weight 204 lb 3.2 oz Physical Exam 2 Narrative: GENERAL: Patient is confused NECK: No jugular vein distension. [] HEENT: No cyanosis. No icterus. No pallor. [] HEART: Irregularly irregular LUNGS: Clear to auscultate bilaterally. [] CENTRAL NERVOUS SYSTEM: Grossly nonfocal. [] EXTREMITIES: Lower extremities with 1+ edema bilaterally. Urinary Catheter Management: Hernandez: Cath Placed During This Visit: yes Reason for Continuing Indwelling Catheter: Accurate Measurement of Urinary Output in Critically Ill Patients Urinary Catheter Date of Insertion: 07/30/23 Urinary Catheter Time of Insertion: 12:31 Data 08/08/23 07:20 08/09/23 02:43 A&P Assessment and plan (1) Atrial fibrillation: (2) Troponin level elevated: (3) ROSCOE (acute kidney injury): Plan Patient's troponins were elevated likely secondary to demand ischemia. They trended down since admission. He has ROSCOE. Now requiring dialysis. EF is normal and he is not complaining of chest discomfort. Although stress test is abnormal, I had a detailed discussion with patient's family that in current scenario, holding off on invasive procedures specifically cardiac catheterization will be appropriate. They are in agreement and want to continue medical therapy Continue medical therapy. If patient can tolerate antiplatelet therapy , continue. Thank you for involving us with care of this patient. We will be available if any further questions or patient's condition changes. Please call with questions. Consult Attestations 2 Medical Necessity Statement: Care expected to cross 2 midnights. Coding Level of Care Code Acute Code for [facility] Fwd Diagnoses Atrial fibrillation I48.91 Troponin level elevated R79.89 ROSCOE (acute kidney injury) N17.9
--- NOTE | 2023-08-04 16:33 | P.PN_ITS ---
Subjective 2 Subjective: on 3L NC Medications: Reviewed: Yes Vitals/I&O/Wt Last Vital Signs Temp 96.9 F L 08/04/23 09:42 Pulse 94 08/04/23 14:14 Resp 17 08/04/23 14:14 BP 140/57 08/04/23 14:14 Pulse Ox 94 08/04/23 14:14 O2 Del Method Nasal Cannula 08/04/23 14:14 O2 Flow Rate 3 08/04/23 10:23 08/04/23 08/04/23 08/04/23 06:59 14:59 22:59 Intake Total 340 / 340 Output Total 50 / 125 25 / 25 Balance -50 / 1075 315 / 315 Weight last 48 hrs Weight 89.159 kg Weight 92.624 kg Physical Exam 2 Narrative: awake + edema Urinary Catheter Management: Hernandez: Cath Placed During This Visit: yes Reason for Continuing Indwelling Catheter: Accurate Measurement of Urinary Output in Critically Ill Patients Urinary Catheter Date of Insertion: 07/30/23 Urinary Catheter Time of Insertion: 12:31 Data 08/04/23 04:50 08/04/23 04:50 A&P Assessment and plan (1) ROSCOE (acute kidney injury): Plan 1. Acute kidney injury: Baseline creatinine not available, creatinine at 3 range currently associated with metabolic acidosis. Etiology of ROSCOE likely prerenal, rhabdo, in the setting of CLL . - renal fxn worsening with severe uremia - s/p tunnelled HD catheter placement and HD started , HD today -Avoid IV contrast studies 3. Rhabdomyolysis:, CK is in 500 range improved 4. CLL : seen by hematology oncology,out ot work up planned Patient evaluated using audiovisual cart. Time spent 20 minutes. Attestations 2 Medical Necessity Statement*: per franok Coding Level of Care Code Acute Code for [facility] Fwd Diagnoses ROSCOE (acute kidney injury) N17.9
[2023-08-04] MEDS: heparin, porcine 1,000 unit/mL INJ 10 mL 1000 UNIT IV (16:42)
[2023-08-04] MEDS: heparin, porcine 1,000 unit/mL INJ 10 mL 10000 UNIT INTRACATH (16:43)
[2023-08-04] MEDS: ondansetron 2 mg/ML SDV 2 mL 4 MG IVP (21:09)
[2023-08-04 22:04] LABS: Glucose Point of Care 93 mg/dL (70-110)
[2023-08-04] MEDS: acetaminophen 500 mg Tablet PO (22:52)
[2023-08-05] VITALS (73 sets, daily range): BP systolic 97–147; BP diastolic 43–86; PULSE 66–111; RESP 13–30; TEMP 36.1–36.8; O2SAT 87–99
--- NOTE | 2023-08-05 02:05 | PC.NURSE ---
Patient has been awake most of shift. He appears to go to sleep, but, he awakens to the sounds in the unit. Patient is oriented to name only. He needs to be reminded he is at the hospital.
[2023-08-05 02:25] LABS: Fibrinogen Degradation Product 5 mcg/mL (LESS THAN 5)
[2023-08-05] MEDS: morphine IR 15 mg Tablet PO (02:45)
[2023-08-05 03:47] LABS: Glucose Point of Care 137 mg/dL (70-110)
[2023-08-05 03:58] LABS: Basophils # 0.2 10^3/uL (0.0-0.1); Basophils % 0.3 %; Eosinophils # 0.1 10^3/uL (0.0-0.8); Eosinophils % 0.2 %; Lymphocytes # 54.9 10^3/uL (0.8-4.8); Lymphocytes % 84.7 %; Mean Corpuscular HGB Conc 30.6 g/dL (30-55); Mean Corpuscular Hemoglobin 27.9 pg (27-33); Mean Corpuscular Volume 90.9 fl (82-101); Mean Platelet Volume 10.6 fL (7.4-10.4); Monocytes # 0.7 10^3/uL (0.2-0.9); Monocytes % 1.1 %; Neutrophils # 7.94 10^3/uL (1.8-7.7); Neutrophils % 12.3 %; Nucleated Red Blood Cells % 0 %; Platelet Count 228 10^3/cmm (157-399); Red Blood Count 3.41 10^6/uL (3.85-5.65)
[2023-08-05 04:19] LABS: Anion Gap 16.9 (5-19); Blood Urea Nitrogen 54 mg/dL (8-23); Calcium 7.8 mg/dL (8.5-10.5); Carbon Dioxide 27 mmol/L (22-29); Chloride 99 mmol/L (98-107); Glucose 151 mg/dL (65-115); Osmolality Calculated 306 mOsm/kg (285-295); Potassium 3.9 mmol/L (3.5-5.1); Sodium 139 mmol/L (136-145)
[2023-08-05 04:21] LABS: Slide Review Slide Review Perform
[2023-08-05 08:27] LABS: Glucose Point of Care 161 mg/dL (70-110)
--- NOTE | 2023-08-05 08:51 | PM.PN ---
Subjective Subjective: s/p HD yesterday poor po intake somnolent Medications: Reviewed: Yes Vitals/I&O/Wt Last Vital Signs Temp 98.2 F 08/05/23 04:00 Pulse 90 08/05/23 07:41 Resp 16 08/05/23 07:41 BP 120/67 08/05/23 06:00 Pulse Ox 94 08/05/23 07:41 O2 Del Method Nasal Cannula 08/05/23 07:41 O2 Flow Rate 3 08/05/23 07:41 08/04/23 08/05/23 08/05/23 22:59 06:59 14:59 Intake Total 280 / 620 Output Total 250 / 275 220 / 495 Balance 30 / 345 -220 / 125 Weight last 48 hrs Weight 85.729 kg Weight 89.159 kg Physical Exam Narrative: somnolent + edema Urinary Catheter Management: Hernandez: Cath Placed During This Visit: yes Reason for Continuing Indwelling Catheter: Accurate Measurement of Urinary Output in Critically Ill Patients Urinary Catheter Date of Insertion: 07/30/23 Urinary Catheter Time of Insertion: 12:31 Data 08/05/23 03:41 08/05/23 03:41 A&P Assessment and plan (1) ROSCOE (acute kidney injury): Plan 1. Acute kidney injury: Baseline creatinine not available, creatinine at 3 range currently associated with metabolic acidosis. Etiology of ROSCOE likely prerenal, rhabdo, in the setting of CLL . - renal fxn worsened with severe uremia - s/p tunnelled HD catheter placement and HD started , s/p HD yesterday -Avoid IV contrast studies 3. Rhabdomyolysis:, CK is in 500 range improved 4. New diagnosis of CLL : seen by hematology oncology,out ot work up planned Patient evaluated using audiovisual cart. Time spent 20 minutes. Attestations Medical Necessity Statement*: per bridgetteva Coding Level of Care Code Acute Code for [facility] Fwd Diagnoses ROSCOE (acute kidney injury) N17.9
[2023-08-05] MEDS: aspirin 81 mg EC Tablet PO (09:07)
[2023-08-05] MEDS: sennosides-docusate Tablet 1 TAB PO (09:07)
[2023-08-05] MEDS: cefTRIAXone 1,000 MG in sodium chloride 0.9% (plus) 50 ML 100 MG IV (09:07)
[2023-08-05] MEDS: amoxicillin-clav 875-125 mg Tablet 1 TAB PO (09:07)
[2023-08-05] MEDS: insulin lispro 100 unit/1 mL SUBCUT ×2 (09:08→12:25)
--- NOTE | 2023-08-05 11:22 | P.PN_ITS ---
Subjective 2 Subjective: Patient is overall lethargic and fatigued Goes back to sleep while talking He was able to tell me that he is in [place], he did not endorse any chest pain or shortness of breath or any concerns Vitals/I&O/Wt Last Vital Signs Temp 97.8 F 08/05/23 08:00 Pulse 95 08/05/23 10:00 Resp 21 H 08/05/23 10:00 BP 147/52 08/05/23 10:00 Pulse Ox 90 08/05/23 10:00 O2 Del Method Nasal Cannula 08/05/23 08:00 O2 Flow Rate 3 08/05/23 08:00 08/04/23 08/05/23 08/05/23 22:59 06:59 14:59 Intake Total 280 / 620 50 / 50 Output Total 250 / 275 220 / 495 Balance 30 / 345 -220 / 125 50 / 50 Weight last 48 hrs Weight 85.729 kg Weight 89.159 kg Physical Exam 2 Narrative: Signs of fluid load improving Asterixis improved Fatigued and lethargic Will be redirectable Right corneal lesion is old Ecchymosis of left side improving Pleasant cooperative Verbally redirectable Was able to move his extremities Urinary Catheter Management: Hernandez: Cath Placed During This Visit: yes Reason for Continuing Indwelling Catheter: Accurate Measurement of Urinary Output in Critically Ill Patients Urinary Catheter Date of Insertion: 07/30/23 Urinary Catheter Time of Insertion: 12:31 Data 08/05/23 03:41 08/05/23 03:41 A&P Assessment and plan (1) Rhabdomyolysis: (2) Fall: (3) NSTEMI (non-ST elevated myocardial infarction): (4) Atrial fibrillation: (5) Hyperglycemia: (6) ROSCOE (acute kidney injury): (7) Acute worsening of stage 3 chronic kidney disease: (8) High anion gap metabolic acidosis: (9) BPH with urinary obstruction: (10) Uremia: (11) Peripheral neuropathy: (12) Diabetic neuropathy: (13) Asterixis: (14) Pneumonia: Plan Non-STEMI Patient not a good candidate for angiogram as of now medical management as per cardiology, family is agreeable CLL: Leukocytosis improving Altered mental status Could be related to the sedative he received for tunneled dialysis catheter Despite dialysis his confusion has not improved significantly I will repeat ABG and repeat CT head Request ammonia level He is not able to participate with PT I do not see any focal deficits he was able to be redirected redirectable able to move his extremities ATN: Getting dialysis dependent tunneled dialysis catheter in place Community-acquired pneumonia continue Augmentin and ceftriaxone Afebrile Finished ACS protocol currently patient is on DVT prophylactic regimen of heparin Full code GI soft diet Continue PT evaluation Patient is deteriorating, I do not anticipate a good prognosis if he continues to decline Patient evaluated multiple times, spoke with buzzsaw operator Dr. Fountain Attestations 2 Medical Necessity Statement*: Continue ICU management Diagnoses Rhabdomyolysis M62.82 Fall W19.XXXA NSTEMI (non-ST elevated myocardial infarction) I21.4 Atrial fibrillation I48.91 Hyperglycemia R73.9 ROSCOE (acute kidney injury) N17.9 Acute worsening of stage 3 chronic kidney disease N18.30 High anion gap metabolic acidosis E87.29 BPH with urinary obstruction N40.1; N13.8 Uremia N19 Peripheral neuropathy G62.9 Diabetic neuropathy E11.40 Asterixis R27.8 Pneumonia J18.9
--- NOTE | 2023-08-05 11:23 | CT_ITS ---
WS: [id number] CT HEAD NONCONTRAST HISTORY: AMS TECHNIQUE: Contiguous axial imaging performed through the brain in 2.5 mm imaging. Bone and soft tiss ue windows. Sagittal and coronal reformats reviewed. All CT scans at [facility] use at least one of these dose optimization techniques: automated exposure control; mA and/or kV adjustment per pa tient size (includes targeted exams where dose is matched to clinical indication); or iterative recon struction. DLP: 1099.38 mGy.cm COMPARISON: 07/29/2023 No acute intracranial hemorrhage, midline shift or mass effect. Mild bilateral atrophy and volume loss. Ventricles: Normal size with no hydrocephalus. No inferior displacement of the cerebellar tonsils. Paranasal sinuses: As visualized are clear. Mastoid air cells: Well pneumatized. Calvarium and scalp: Skull is intact with no soft tissue edema or swelling. IMPRESSION: 1. No acute intracranial hemorrhage or edema. 2. Mild atrophy and volume loss. Mild small vessel ischemic disease.
[2023-08-05 11:35] LABS: ABG PH Result 7.33 (7.35-7.45); Arterial Blood Gas Hematocrit 31.3 % (42-52); Base Excess ABG 2.1 mmol/L (-2.0-2.0); Blood Gas Allen Test Pos; Blood Gas LPM 2.5 %; Blood Gas Operator Identificat CAK; Blood Gas Sample Site Radial, left; Blood Gas Sample Type Arterial; HCO3 ABG 28.7 mmol/L (22-26); Oxygen Device NC; PO2 ABG 54.7 mmHg (80.0-100.0); PO2 FiO2 Ratio Arterial Blood 0
[2023-08-05] MEDS: heparin 5,000 unit/mL INJ 1 mL 5000 UNIT SUBCUT (12:24)
[2023-08-05 12:25] LABS: Ammonia 45 umol/L (16-60)
[2023-08-05 12:26] LABS: Lactate (Lactic Acid level) 0.9 mmol/L (0.5-2.2)
[2023-08-05 13:57] LABS: Glucose Point of Care 157 mg/dL (70-110)
[2023-08-05 18:09] LABS: Glucose Point of Care 104 mg/dL (70-110)
--- NOTE | 2023-08-05 19:29 | W.PM.EVENTAC ---
Event Note Event Note: I was called by Elza regarding patient being more drowsy ABG showed mild hypercapnic respiratory failure We put on BiPAP he was trying to fight the BiPAP had to use soft wrist restraint Family notified Will repeat ABG in an hour I discussed goals of care again with the daughter after discussing with rest of the family members she has opted for DNR/DNI CODE STATUS changed Event Notes Attestations Time Spent in Patient Care: 40
[2023-08-05 20:34] LABS: Glucose Point of Care 108 mg/dL (70-110)
[2023-08-05] MEDS: FUROsemide 10 mg/mL SDV 2mL 20 MG IVP (20:54)
[2023-08-05 21:25] LABS: Glucose Point of Care 128 mg/dL (70-110)
[2023-08-06] VITALS (29 sets, daily range): BP systolic 83–153; BP diastolic 46–75; PULSE 73–119; RESP 11–41; TEMP 36.3–37.3; O2SAT 89–98
[2023-08-06] MEDS: heparin 5,000 unit/mL INJ 1 mL 5000 UNIT SUBCUT ×3 (00:12→23:27)
[2023-08-06 00:35] LABS: ABG PH Result 7.32 (7.35-7.45); Base Excess ABG 1.4 mmol/L (-2.0-2.0); HCO3 ABG 28.1 mmol/L (22-26)
[2023-08-06 00:36] LABS: BIPAP 16/8; Oxygen Device BIPAP
[2023-08-06 00:37] LABS: Arterial Blood Gas Hematocrit 32.3 % (42-52); Blood Gas Sample Site RIGHT BRACHIAL; Blood Gas Sample Type ARTERIAL
[2023-08-06 06:16] LABS: Basophils # 0.3 10^3/uL (0.0-0.1); Basophils % 0.4 %; Eosinophils # 0.1 10^3/uL (0.0-0.8); Eosinophils % 0.1 %; Lymphocytes # 61.6 10^3/uL (0.8-4.8); Lymphocytes % 83.9 %; Mean Corpuscular HGB Conc 29.7 g/dL (30-55); Mean Corpuscular Hemoglobin 28.3 pg (27-33); Mean Corpuscular Volume 95.2 fl (82-101); Mean Platelet Volume 10.3 fL (7.4-10.4); Monocytes # 1.7 10^3/uL (0.2-0.9); Monocytes % 2.3 %; Neutrophils # 8.86 10^3/uL (1.8-7.7); Nucleated Red Blood Cells % 0 %; Platelet Count 248 10^3/cmm (157-399); Red Blood Count 3.36 10^6/uL (3.85-5.65); Red Cell Distribution Width 16.5 % (12.1-15.1)
[2023-08-06 06:37] LABS: Anion Gap 20.3 (5-19); Blood Urea Nitrogen 75 mg/dL (8-23); Calcium 7.8 mg/dL (8.5-10.5); Carbon Dioxide 25 mmol/L (22-29); Chloride 97 mmol/L (98-107); Glucose 156 mg/dL (65-115); Osmolality Calculated 311 mOsm/kg (285-295); Potassium 4.3 mmol/L (3.5-5.1); Sodium 138 mmol/L (136-145)
[2023-08-06 07:03] LABS: Slide Review Slide Review Perform
[2023-08-06 07:05] LABS: White Blood Count 73.44 10^3/uL (3.29-11.43)
[2023-08-06 08:18] LABS: ABG PCO2 50.3 mmHg (35-45); ABG PH Result 7.31 (7.35-7.45); Base Excess ABG -0.5 mmol/L (-2.0-2.0); Blood Gas Operator Identificat MONRO; HCO3 ABG 25.9 mmol/L (22-26); PO2 ABG 75.7 mmHg (80.0-100.0); PO2 FiO2 Ratio Arterial Blood 0
[2023-08-06 08:19] LABS: Arterial Blood Gas Hematocrit 30.5 % (42-52); BIPAP 16/8; Blood Gas Drawn By MONRO; Blood Gas Sample Site RR; Blood Gas Sample Type ART; Oxygen Device BIPAP
[2023-08-06] MEDS: cefTRIAXone 1,000 MG in sodium chloride 0.9% (plus) 50 ML 100 MG IV (08:43)
[2023-08-06] MEDS: insulin lispro 100 unit/1 mL SUBCUT ×2 (08:44→12:17)
[2023-08-06] MEDS: lactulose oral liq 20 gm/30 mL UDC 10 GM PO (08:57)
[2023-08-06] MEDS: fixodent 39 gm Tube 1 APPLIC DENTAL (08:58)
[2023-08-06] MEDS: amoxicillin-clav 875-125 mg Tablet 1 TAB PO ×2 (09:02→17:58)
[2023-08-06] MEDS: aspirin 81 mg EC Tablet PO (09:02)
[2023-08-06] MEDS: sennosides-docusate Tablet 1 TAB PO (09:02)
--- NOTE | 2023-08-06 11:01 | PC.SOCIAL ---
IMM Updated Updated pt's family on IMM. No questions voiced. Provided pt a copy. Initialed, dated & timed copy in chart.
--- NOTE | 2023-08-06 11:22 | P.PN_ITS ---
Subjective 2 Subjective: This morning patient is slightly more awake and alert able to tell me his name, he knows that his daughter is in the room He is off BiPAP currently on 3 L nasal cannula Blood pressure stable A-fib RVR Patient is very lethargic and fatigued does not want to get up sit in a recliner Had detailed family discussion about goals of care they want to pursue palliative care want to continue dialysis and IV medications if needed they are okay with transfer him to med/surg Patient is constipated we will give lactulose today Vitals/I&O/Wt Last Vital Signs Temp 97.4 F L 08/06/23 08:00 Pulse 110 H 08/06/23 10:00 Resp 16 08/06/23 10:00 BP 123/50 08/06/23 10:00 Pulse Ox 97 08/06/23 10:00 O2 Del Method Nasal Cannula 08/06/23 10:00 O2 Flow Rate 3 08/06/23 10:00 FiO2 30 08/06/23 07:00 08/05/23 08/06/23 08/06/23 22:59 06:59 14:59 Intake Total 100 / 150 150 / 300 120 / 120 Output Total 125 / 125 125 / 250 Balance -25 / 25 25 / 50 120 / 120 Weight last 48 hrs Weight 87.725 kg Weight 85.729 kg Physical Exam 2 Narrative: Patient is fatigued and lethargic No active signs of fluid overload Signs of fluid load overimproving S1, S2 A-fib RVR Currently on 3 L Family is at the bedside Nonfocal neuroexam Abdomen soft bowel sounds present Urinary Catheter Management: Hernandez: Cath Placed During This Visit: yes Reason for Continuing Indwelling Catheter: Accurate Measurement of Urinary Output in Critically Ill Patients Urinary Catheter Date of Insertion: 07/30/23 Urinary Catheter Time of Insertion: 12:31 Data 08/06/23 06:00 08/06/23 06:00 A&P Assessment and plan (1) NSTEMI (non-ST elevated myocardial infarction): (2) Atrial fibrillation: (3) Hyperglycemia: (4) Acute worsening of stage 3 chronic kidney disease: (5) High anion gap metabolic acidosis: (6) Hyperkalemia: (7) BPH with urinary obstruction: (8) Uremia: (9) CLL (chronic lymphocytic leukemia): (10) Rhabdomyolysis: (11) Fall: (12) Peripheral neuropathy: (13) Pneumonia: (14) Constipation: Plan Constipation: We will give lactulose Patient has positive bowel sounds Non-STEMI Medical management Prescient cardiology recommendations ATN: Appreciate nephro recommendations Uremic symptoms improving CLL: Considering gradual decline in his health he might not be able to go for workup for chemotherapeutic agents outpatient Pneumonia: Hypoxia: Patient requires BiPAP intermittently Acute hypoxic hypercapnic respite failure related to hypoventilation pCO2 improved Will give him a break for a few hours to let him try GI soft diet I would avoid dehydration with excessive use of BiPAP Goals of care discussed with the family: They are pursuing comfort care now would like to continue antibiotics and dialysis I can transfer the patient out of ICU to [facility] Continue PT Guarded prognosis DNR/DNI Attestations 2 Medical Necessity Statement*: Transfer to [facility] Diagnoses NSTEMI (non-ST elevated myocardial infarction) I21.4 Atrial fibrillation I48.91 Hyperglycemia R73.9 Acute worsening of stage 3 chronic kidney disease N18.30 High anion gap metabolic acidosis E87.29 Hyperkalemia E87.5 BPH with urinary obstruction N40.1; N13.8 Uremia N19 CLL (chronic lymphocytic leukemia) C91.10 Rhabdomyolysis M62.82 Fall W19.XXXA Peripheral neuropathy G62.9 Pneumonia J18.9 Constipation K59.00
[2023-08-06 12:26] LABS: Glucose Point of Care 191 mg/dL (70-110)
[2023-08-06 12:32] LABS: Glucose Point of Care 146 mg/dL (70-110)
--- NOTE | 2023-08-06 13:06 | P.PN_ITS ---
Subjective 2 Subjective: dyspnea over night Vitals/I&O/Wt Last Vital Signs Temp 98.6 F 08/06/23 12:00 Pulse 83 08/06/23 12:00 Resp 11 L 08/06/23 12:00 BP 123/53 08/06/23 12:00 Pulse Ox 95 08/06/23 12:00 O2 Del Method Nasal Cannula 08/06/23 12:00 O2 Flow Rate 3 08/06/23 12:00 FiO2 30 08/06/23 07:00 08/05/23 08/06/23 08/06/23 22:59 06:59 14:59 Intake Total 100 / 150 150 / 300 170 / 170 Output Total 125 / 125 125 / 250 Balance -25 / 25 25 / 50 170 / 170 Weight last 48 hrs Weight 87.725 kg Weight 85.729 kg Physical Exam 2 Const: OTHER: lethargic Urinary Catheter Management: Hernandez: Cath Placed During This Visit: yes Reason for Continuing Indwelling Catheter: Accurate Measurement of Urinary Output in Critically Ill Patients Urinary Catheter Date of Insertion: 07/30/23 Urinary Catheter Time of Insertion: 12:31 Data 08/06/23 06:00 08/06/23 06:00 Other data: seen via telemedicine with assistance of RN at bedside A&P Assessment and plan (1) ROSCOE (acute kidney injury): Plan 1. Acute kidney injury: Baseline creatinine not available, creatinine at 3 range currently associated with metabolic acidosis. Etiology of ROSCOE likely prerenal, rhabdo, in the setting of CLL . - renal fxn worsened with severe uremia - s/p tunnelled HD catheter placement and HD started , s/p HD yesterday 2. Rhabdomyolysis:, CK is in 500 range improved 3. New diagnosis of CLL : seen by hematology oncology status changed to allow natural , continue HD. HD performed today for fluid removal to assist with ventilation prognosis poor Attestations 2 Medical Necessity Statement*: see above Time Spent in Patient Care: 16 - 35 minutes Coding Level of Care Code Acute Code for Chg Fwd Diagnoses ROSCOE (acute kidney injury) N17.9
--- NOTE | 2023-08-06 13:39 | PC.NURSE ---
Dr Cortes rounded with pt. To run dialysis 2.5 liters for 3 hours.
--- NOTE | 2023-08-06 14:47 | PC.HD ---
Dr. Quinn unable to write dialysis orders at the moment; requested I print and repeat orders from 08/04/2023. Heparin 1000 units loading dose administered at 1355 via HD catheter per previous orders as well.
--- NOTE | 2023-08-06 16:10 | PC.NURSE ---
Report called to [facility]. Report given to DOM Penny. Pt to transfer after Hemodialysis completed.
[2023-08-06 17:32] LABS: Glucose Point of Care 105 mg/dL (70-110)
--- NOTE | 2023-08-06 17:57 | PC.NURSE ---
Pt transferred to room 275. All belongings with pt ( glasses, cell phone, family picture and new clothing) Pt refused oral abx prior to trasnfer. Gave to DOM Penny to try. Further update to DOM Penny. Tray taken upstairs with pt.
[2023-08-06] MEDS: insulin glargine 100 units/1 mL 10 UNIT SUBCUT (20:23)
[2023-08-06] MEDS: LORazepam 2 mg/mL INJ 10 mL MDV 0.5 MG IVP (20:23)
[2023-08-06 22:16] LABS: Glucose Point of Care 183 mg/dL (70-110)
[2023-08-07] VITALS (7 sets, daily range): BP systolic 118–174; BP diastolic 54–72; PULSE 74–106; RESP 14–18; TEMP 36.4–37.2; O2SAT 90–96
[2023-08-07 06:50] LABS: Glucose Point of Care 137 mg/dL (70-110)
[2023-08-07] MEDS: amoxicillin-clav 875-125 mg Tablet 1 TAB PO ×2 (08:43→18:01)
[2023-08-07] MEDS: cefTRIAXone 1,000 MG in sodium chloride 0.9% (plus) 50 ML 100 MG IV (08:44)
[2023-08-07] MEDS: aspirin 81 mg EC Tablet PO (08:44)
[2023-08-07] MEDS: sennosides-docusate Tablet 1 TAB PO (08:44)
[2023-08-07 09:04] LABS: Carbon Dioxide 23 mmol/L (22-29); Chloride 98 mmol/L (98-107); Osmolality Calculated 293 mOsm/kg (285-295)
[2023-08-07 09:30] LABS: Blood Urea Nitrogen 50 mg/dL (8-23); Calcium 7.4 mg/dL (8.5-10.5); Glucose 180 mg/dL (65-115); Sodium 138 mmol/L (136-145)
[2023-08-07 09:31] LABS: Anion Gap 18.4 (5-19)
[2023-08-07 09:32] LABS: Potassium 4.4 mmol/L (3.5-5.1)
--- NOTE | 2023-08-07 09:35 | PM.PN ---
Subjective Subjective: Patient is not endorsing any complaints No bowel movement yet Given another dose of lactulose Mentation still same as yesterday Able to answer simple questions Fire Equipment Inspector is at the bedside Patient was able to recognize his supervisor baking and stated that he is Mr. Douglas Vitals/I&O/Wt Last Vital Signs Temp 97.5 F L 08/07/23 08:23 Pulse 83 08/07/23 08:23 Resp 17 08/07/23 08:23 BP 156/66 08/07/23 08:23 Pulse Ox 94 08/07/23 08:23 O2 Del Method Nasal Cannula 08/07/23 08:23 O2 Flow Rate 4 08/07/23 04:00 FiO2 30 08/06/23 15:44 08/06/23 08/07/23 08/07/23 22:59 06:59 14:59 Intake Total 300 / 470 360 / 360 Output Total 2135 / 2135 75 / 2210 Balance -1835 / -1665 -75 / -1740 360 / 360 Weight last 48 hrs Weight 84.232 kg Weight 89.3 kg Weight 87.725 kg Physical Exam Narrative: Fatigued and lethargic Able to answer simple questions No active signs of anasarca Abdomen soft Ecchymosis improving I do not see any focal deficits Currently on 3 to 4 L of oxygen Abdomen distended but soft Urinary Catheter Management: Hernandez: Cath Placed During This Visit: yes Reason for Continuing Indwelling Catheter: Other Urinary Catheter Date of Insertion: 07/30/23 Urinary Catheter Time of Insertion: 12:31 Data 08/06/23 06:00 08/07/23 08:26 A&P Assessment and plan (1) NSTEMI (non-ST elevated myocardial infarction): (2) Atrial fibrillation: (3) Constipation: (4) Uremia: (5) BPH with urinary obstruction: (6) CLL (chronic lymphocytic leukemia): (7) Diabetic neuropathy: (8) ATN (acute tubular necrosis): Plan Signs of uremia improving ATN: CLL related No need to biopsy at this point Hemodialysis as per nephro recommendations Constipation: We will give another dose of lactulose today Abnormalities: Resolved Hypoxic hypercapnic respite failure related to hypoventilation Patient needs BiPAP intermittently DNI/DNI He will be put on palliative care with detention discharge planning next week Hypertensive: Just antihypertensive regimen Non-STEMI: Medical management Hyperglycemia: Improved Currently on GI soft diet Continue PT Aspiration pneumonia currently on ceftriaxone and Augmentin, discontinue IV ceftriaxone will keep him on p.o. antibiotics for now DVT prophylaxis: Heparin Not a good candidate to be on anticoagulating agent continue risk of falls he has history of A-fib/flutter Attestations Medical Necessity Statement*: Discharge next week to SNF Diagnoses NSTEMI (non-ST elevated myocardial infarction) I21.4 Atrial fibrillation I48.91 Constipation K59.00 Uremia N19 BPH with urinary obstruction N40.1; N13.8 CLL (chronic lymphocytic leukemia) C91.10 Diabetic neuropathy E11.40 ATN (acute tubular necrosis) N17.0
[2023-08-07] MEDS: methylphenidate 10 mg Tablet 5 MG PO (09:57)
[2023-08-07] MEDS: lactulose oral liq 20 gm/30 mL UDC 10 GM PO (09:57)
--- NOTE | 2023-08-07 11:04 | P.PN_ITS ---
Subjective 2 Subjective: feels lousy , body aches, + hiccups, family at bedside Vitals/I&O/Wt Last Vital Signs Temp 97.5 F L 08/07/23 08:23 Pulse 83 08/07/23 08:23 Resp 17 08/07/23 08:23 BP 156/66 08/07/23 08:23 Pulse Ox 94 08/07/23 08:23 O2 Del Method Nasal Cannula 08/07/23 08:23 O2 Flow Rate 4 08/07/23 08:00 FiO2 30 08/06/23 15:44 08/06/23 08/07/23 08/07/23 22:59 06:59 14:59 Intake Total 300 / 470 360 / 360 Output Total 2135 / 2135 75 / 2210 Balance -1835 / -1665 -75 / -1740 360 / 360 Weight last 48 hrs Weight 84.232 kg Weight 89.3 kg Weight 87.725 kg Physical Exam 2 Const: COMMON NORMALS: no acute distress and alert Extremity: NARRATIVE EXTREMITY EXAM: + edema Neuro: SENSORIUM/ORIENTATION: Yes alert Urinary Catheter Management: Hernandez: Cath Placed During This Visit: yes Reason for Continuing Indwelling Catheter: Other Urinary Catheter Date of Insertion: 07/30/23 Urinary Catheter Time of Insertion: 12:31 Data 08/06/23 06:00 08/07/23 08:26 Other data: Seen via telemedicine with assistance of RN at bedside A&P Assessment and plan (1) ROSCOE (acute kidney injury): Plan 1. Acute kidney injury: Baseline creatinine not available, creatinine at 3 range currently associated with metabolic acidosis. Etiology of ROSCOE likely prerenal, rhabdo, in the setting of CLL . No signs of renal improvement. - s/p tunnelled HD catheter placement and HD started , s/p HD yesterday 2. Rhabdomyolysis:, CK is in 500 range improved 3. New diagnosis of CLL : seen by hematology oncology status changed to allow natural . I spoke with Garett and his family today. He wishes to continue HD. Next HD WednesdayAugust 09 prognosis poor Attestations 2 Medical Necessity Statement*: per primary service Time Spent in Patient Care: 16 - 35 minutes Coding Level of Care Code Acute Code for [facility] Fwd Diagnoses ROSCOE (acute kidney injury) N17.9
[2023-08-07 11:50] LABS: Glucose Point of Care 191 mg/dL (70-110)
[2023-08-07] MEDS: TRAMadol 50 mg Tablet PO (12:55)
[2023-08-07 17:04] LABS: Glucose Point of Care 166 mg/dL (70-110)
[2023-08-07] MEDS: insulin lispro 100 unit/1 mL SUBCUT (18:01)
[2023-08-07] MEDS: ondansetron 2 mg/ML SDV 2 mL 4 MG IVP (21:08)
[2023-08-07 21:29] LABS: Glucose Point of Care 141 mg/dL (70-110)
[2023-08-08] VITALS (7 sets, daily range): BP systolic 132–167; BP diastolic 56–68; PULSE 75–117; RESP 16–20; TEMP 36.2–37.3; O2SAT 90–94; BMI 28.1
[2023-08-08 06:36] LABS: Glucose Point of Care 184 mg/dL (70-110)
[2023-08-08 08:10] LABS: Basophils # 0.1 10^3/uL (0.0-0.1); Basophils % 0.1 %; Eosinophils # 0.1 10^3/uL (0.0-0.8); Eosinophils % 0.1 %; Hematocrit 36.6 % (37-53); Lymphocytes # 60.2 10^3/uL (0.8-4.8); Lymphocytes % 81.4 %; Mean Corpuscular Hemoglobin 28.5 pg (27-33); Mean Corpuscular Volume 98.4 fl (82-101); Mean Platelet Volume 10.5 fL (7.4-10.4); Monocytes # 0.8 10^3/uL (0.2-0.9); Monocytes % 1.1 %; Neutrophils # 11.98 10^3/uL (1.8-7.7); Neutrophils % 16.2 %; Nucleated Red Blood Cells % 0 %; Platelet Count 258 10^3/cmm (157-399); Red Blood Count 3.72 10^6/uL (3.85-5.65); Red Cell Distribution Width 15.9 % (12.1-15.1)
[2023-08-08 08:19] LABS: Glucose Point of Care 193 mg/dL (70-110)
[2023-08-08 08:20] LABS: White Blood Count 73.94 10^3/uL (3.29-11.43)
[2023-08-08 08:26] LABS: ABG PCO2 45.2 mmHg (35-45); ABG PH Result 7.39 (7.35-7.45); Alveolar-Arterial Oxygen Gradi 4.3 mmHg (5-10); Arterial Blood Gas Hematocrit 31.4 % (42-52); Base Excess ABG 2.3 mmol/L (-2.0-2.0); Blood Gas Allen Test Pos; Blood Gas Operator Identificat WALCI; Blood Gas Sample Site Radial, left; Blood Gas Sample Type Arterial; Carboxyhemoglobin 1.7 %THgb (0.4-20.1); HCO3 ABG 27.6 mmol/L (22-26); HGB O2 Sat 91.4 % (95-100); Ionized Calcium Level - ABG 1.1 mmol/L (1.1-1.4); Methemoglobin 0.3 % (0.4-1.5); Oxygen Device NC; Oxygen Saturation ABG 93.4; PO2 ABG 61.6 mmHg (80.0-100.0); Potassium Level - ABG 4.1 mmol/L (3.5-5.0); Total Hemoglobin 10.2 g/dL (14-18)
[2023-08-08 08:29] LABS: Blood Urea Nitrogen 56 mg/dL (8-23); Calcium 7.8 mg/dL (8.5-10.5); Carbon Dioxide 22 mmol/L (22-29); Chloride 97 mmol/L (98-107); Glucose 179 mg/dL (65-115); Osmolality Calculated 300 mOsm/kg (285-295); Sodium 135 mmol/L (136-145)
[2023-08-08 08:32] LABS: Anion Gap 20.7 (5-19); Potassium 4.7 mmol/L (3.5-5.1)
[2023-08-08] MEDS: insulin lispro 100 unit/1 mL SUBCUT (08:59)
[2023-08-08] MEDS: sennosides-docusate Tablet 1 TAB PO (09:00)
[2023-08-08] MEDS: aspirin 81 mg EC Tablet PO (09:00)
[2023-08-08] MEDS: amoxicillin-clav 875-125 mg Tablet 1 TAB PO (09:00)
[2023-08-08] MEDS: TRAMadol 50 mg Tablet PO (09:02)
--- NOTE | 2023-08-08 10:02 | P.PN_ITS ---
Subjective 2 Subjective: This morning patient was admitted drowsy, we put him on BiPAP, he was able to response to verbal commands He is able to squeeze my hands on command ABG showed normal pH Vitals/I&O/Wt Last Vital Signs Temp 98.7 F 08/08/23 07:54 Pulse 103 H 08/08/23 07:54 Resp 18 08/08/23 07:54 BP 167/67 08/08/23 07:54 Pulse Ox 93 08/08/23 07:54 O2 Del Method Nasal Cannula 08/08/23 07:54 O2 Flow Rate 4 08/08/23 07:48 FiO2 30 08/06/23 15:44 08/07/23 08/08/23 08/08/23 22:59 06:59 14:59 Intake Total 120 / 650 50 / 50 Output Total 250 / 250 75 / 325 Balance -130 / 400 -75 / 325 50 / 50 Weight last 48 hrs Weight 84.005 kg Weight 84.232 kg Weight 89.3 kg Physical Exam 2 Narrative: Patient is able to follow command Able to answer simple questions Friend is at the bedside No active sign of fluid overload Abdomen soft S1, S2 3 to 4 L nasal cannula Urinary Catheter Management: Hernandez: Cath Placed During This Visit: yes Reason for Continuing Indwelling Catheter: Other Urinary Catheter Date of Insertion: 07/30/23 Urinary Catheter Time of Insertion: 12:31 Data 08/08/23 07:20 08/08/23 07:20 A&P Assessment and plan (1) NSTEMI (non-ST elevated myocardial infarction): (2) Atrial fibrillation: (3) Constipation: (4) ROSCOE (acute kidney injury): (5) ATN (acute tubular necrosis): (6) BPH with urinary obstruction: (7) CLL (chronic lymphocytic leukemia): (8) Rhabdomyolysis: (9) Fall: (10) Peripheral neuropathy: (11) Diabetic neuropathy: (12) Pneumonia: Plan CLL: White count is still high no sign of hyperviscosity ATN leading to dialysis Hypoxic hypercapnic respite failure required BiPAP intermittently secondary to hypoventilation Patient will be needing alf placement and chair time patient and family want to continue with dialysis and palliative care they are not ready for hospice yet There is gradual decline in his health Dependent on maximum assist for ambulation and transfer out of bed DNR/DNI DVT prophylaxis on board Patient has finished antibiotic course I will discontinue his antibiotics Attestations 2 Medical Necessity Statement*: Continue medical management Diagnoses NSTEMI (non-ST elevated myocardial infarction) I21.4 Atrial fibrillation I48.91 Constipation K59.00 ROSCOE (acute kidney injury) N17.9 ATN (acute tubular necrosis) N17.0 BPH with urinary obstruction N40.1; N13.8 CLL (chronic lymphocytic leukemia) C91.10 Rhabdomyolysis M62.82 Fall W19.XXXA Peripheral neuropathy G62.9 Diabetic neuropathy E11.40 Pneumonia J18.9
[2023-08-08] MEDS: heparin 5,000 unit/mL INJ 1 mL 5000 UNIT SUBCUT ×2 (11:23→23:45)
[2023-08-08 11:26] LABS: Glucose Point of Care 195 mg/dL (70-110)
--- NOTE | 2023-08-08 16:14 | P.PN_ITS ---
Subjective 2 Subjective: lethargic Medications: Reviewed: Yes Vitals/I&O/Wt Last Vital Signs Temp 99.1 F 08/08/23 15:48 Pulse 75 08/08/23 15:48 Resp 18 08/08/23 15:48 BP 137/65 08/08/23 15:48 Pulse Ox 92 08/08/23 15:48 O2 Del Method Nasal Cannula 08/08/23 15:48 O2 Flow Rate 4 08/08/23 07:48 FiO2 30 08/06/23 15:44 08/08/23 08/08/23 08/08/23 06:59 14:59 22:59 Intake Total 50 / 50 Output Total 75 / 325 Balance -75 / 325 50 / 50 Weight last 48 hrs Weight 84.005 kg Weight 84.232 kg Weight 89.3 kg Physical Exam 2 Const: COMMON NORMALS: no acute distress and alert Extremity: NARRATIVE EXTREMITY EXAM: + edema Neuro: SENSORIUM/ORIENTATION: Yes alert Urinary Catheter Management: Hernandez: Cath Placed During This Visit: yes Reason for Continuing Indwelling Catheter: Other Urinary Catheter Date of Insertion: 07/30/23 Urinary Catheter Time of Insertion: 12:31 Data 08/08/23 07:20 08/08/23 07:20 A&P Assessment and plan (1) ROSCOE (acute kidney injury): Plan 1. Acute kidney injury: Baseline creatinine not available, creatinine at 3 range currently associated with metabolic acidosis. Etiology of ROSCOE likely prerenal, rhabdo, in the setting of CLL . No signs of renal improvement. - s/p tunnelled HD catheter placement and HD started , s/p HD wednesday 2. Rhabdomyolysis:, CK is in 500 range improved 3. New diagnosis of CLL : seen by hematology oncology status changed to allow natural . He wishes to continue HD. Next HD WednesdayAugust 09 prognosis poor Attestations 2 Medical Necessity Statement*: per mrdicine Coding Level of Care Code Acute Code for [facility] Diagnoses ROSCOE (acute kidney injury) N17.9
[2023-08-08 17:04] LABS: Glucose Point of Care 185 mg/dL (70-110)
[2023-08-08] MEDS: hyDRALAzine 10 mg Tablet 25 MG PO (17:34)
[2023-08-08 20:53] LABS: Glucose Point of Care 209 mg/dL (70-110)
[2023-08-08] MEDS: insulin glargine 100 units/1 mL 10 UNIT SUBCUT (21:47)
[2023-08-09] VITALS (9 sets, daily range): BP systolic 0–180; BP diastolic 0–77; PULSE 0–119; RESP 0–20; TEMP -17.7–37.8; O2SAT 0–101
[2023-08-09 03:29] LABS: Anion Gap 19.6 (5-19); Blood Urea Nitrogen 71 mg/dL (8-23); Calcium 7.8 mg/dL (8.5-10.5); Carbon Dioxide 24 mmol/L (22-29); Chloride 97 mmol/L (98-107); Glucose 207 mg/dL (65-115); Osmolality Calculated 309 mOsm/kg (285-295); Potassium 4.6 mmol/L (3.5-5.1); Sodium 136 mmol/L (136-145)
[2023-08-09 06:59] LABS: Glucose Point of Care 222 mg/dL (70-110)
--- NOTE | 2023-08-09 08:50 | PC.HD ---
Dressing changed prior to hemodialysis. Triple antibiotic ointment applied to catheter insertion site. No s/s of infection noted. Heparin 1000 units loading dose administered via HD catheter 3 minutes prior to treatment initiation per vp product marketing's orders.
--- NOTE | 2023-08-09 08:58 | PC.NURSE ---
Pt in dialysis at this time.
--- NOTE | 2023-08-09 09:51 | P.PN_ITS ---
Subjective 2 Subjective: getting HD Medications: Reviewed: Yes Vitals/I&O/Wt Last Vital Signs Temp 100.0 F H 08/09/23 08:49 Pulse 119 H 08/09/23 08:49 Resp 18 08/09/23 08:49 BP 169/70 08/09/23 08:49 Pulse Ox 92 08/09/23 08:02 O2 Del Method Nasal Cannula 08/09/23 08:02 O2 Flow Rate 4 08/09/23 08:02 FiO2 30 08/06/23 15:44 08/08/23 08/09/23 08/09/23 22:59 06:59 14:59 Intake Total 240 / 290 Output Total 300 / 300 400 / 700 Balance -60 / -10 -400 / -410 Weight last 48 hrs Weight 81.692 kg Weight 84.005 kg Physical Exam 2 Const: COMMON NORMALS: no acute distress and alert Extremity: NARRATIVE EXTREMITY EXAM: + edema Neuro: SENSORIUM/ORIENTATION: Yes alert Urinary Catheter Management: Hernandez: Cath Placed During This Visit: yes Reason for Continuing Indwelling Catheter: Other Urinary Catheter Date of Insertion: 07/30/23 Urinary Catheter Time of Insertion: 12:31 Data 08/08/23 07:20 08/09/23 02:43 A&P Assessment and plan (1) ROSCOE (acute kidney injury): Plan 1. Acute kidney injury: Baseline creatinine not available, creatinine at 3 range currently associated with metabolic acidosis. Etiology of ROSCOE likely prerenal, rhabdo, in the setting of CLL . No signs of renal improvement. - s/p tunnelled HD catheter placement and HD started , HD today 2. Rhabdomyolysis:, CK is in 500 range improved 3. New diagnosis of CLL : seen by hematology oncology status changed to allow natural . He wishes to continue HD. prognosis poor Attestations 2 Medical Necessity Statement*: per franko Coding Level of Care Code Acute Code for [facility] Diagnoses ROSCOE (acute kidney injury) N17.9
--- NOTE | 2023-08-09 10:38 | P.DS_ITS ---
Discharge Providers Date of Admission: 07/29/23 14:08 Date of Discharge: August 09, 2023 Attending Provider at Admission: Korey Saeed MD Attending Provider at Discharge: Korey Saeed MD Primary Care Provider: Jessi Trinidad Diagnoses at Discharge Discharge Diagnosis (1) ROSCOE (acute kidney injury): Status: Acute Reason for Visit Reason for Visit: hyperglycemia, fall 2 days Hospital Course Hospital Course 82-year male who was admitted for management evaluation of generalized weakness and fatigue he was diagnosed with non-STEMI, CLL, pneumonia, he was requiring 4 to 5 L of oxygen, developed ATN and required tunneled dialysis catheter placement and initiation of dialysis, patient has not done well at all since his admission his mentation has declined he has not gotten out of bed on his own he is requiring maximum assist mentation is fluctuating, p.o. intake is poor we do think he is not going to do well with dialysis but family is stating that they would like to continue hemodialysis but will change his CODE STATUS to DNR/DNI/palliative care. In case he is not able to tolerate dialysis then they will switch him to hospice care. Mr. Matos finished antibiotic regimen during hospitalization, he suffered from aspiration pneumonia, finished Augmentin course as well. Please note cardiology was consulted for non-STEMI, they recommended medical management because of his poor medical condition. Spoke with the family multiple times with details from day 1 because we diagnosed him with CLL, Dr. Sarah has evaluated him, he was evaluated Dr. Fountain lieutenant firefighter,, none consulting sales manager They are all in agreement that patient carries a guarded prognosis Physical Exam Narrative: Lethargic and fatigued Getting dialyzed today Pet[place]ia ecchymosis improving Able to answer simple questions Poor p.o. intake Abdomen soft Urinary Catheter Management: Hernandez: Cath Placed During This Visit: yes Reason for Continuing Indwelling Catheter: Other Urinary Catheter Date of Insertion: 07/30/23 Urinary Catheter Time of Insertion: 12:31 Discharge Data Studies Completed and Pending Completed Studies During Hospitalization Category Date Time Status CT head wo con* [id number] Routine Cat Scan 08/05/23 11:[address] head wo con* [id number] Stat Cat Scan 07/29/23 14:[address] kidney stone [id number] Stat Cat Scan 07/29/23 14:06 Completed Sestamibi Stress Test Request Routine Exams 08/01/23 08:50 Draft XR chest 1V portable [id number] Routine Exams 08/03/23 09:36 Completed XR chest 1V portable [id number] Stat Exams 07/29/23 11:25 Completed XR chest 1V portable [id number] Stat Exams 07/31/23 05:05 [place] [id number] Stat Exams 07/29/23 11:55 Completed XR shoulder LT min 2V* [id number] Stat Exams 07/29/23 11:55 Completed NM luzma perf SPECT r/s* [id number] Routine Nuc Med 08/02/23 08:00 Completed CV. echo complete* [id number] Routine Ultrasound 07/31/23 09:17 Completed Pending at discharge Category Date Time Status Sputum Culture and Gram Stain Routine Lab 07/31/23 07:45 Uncollected Radiology Impressions Humerus X-Ray 07/29/23 11:55 IMPRESSION: No acute findings. Shoulder X-Ray 07/29/23 11:55 IMPRESSION: No acute findings. Abdomen/Pelvis CT 07/29/23 14:06 IMPRESSION: 1. Left lower lobe consolidative pneumonia. 2. Extensive adenopathy, likely lymphoma. COMMENTS: Consistent with the [employer]'s Incidental Findings Committee white paper (J Am Jake Radiol 2018): Any incidental renal lesion less than 1 cm or classified as too small to characterize, or any incidental cystic renal lesion characterized as simple-appearing, is likely benign. No follow-up imaging is recommended for these lesions per consensus recommendations based on imaging criteria. Chest X-Ray 08/03/23 09:36 IMPRESSION: 1. Bilateral lower lung zone airspace disease. 2. Right internal jugular PermCath is in satisfactory position. No pneumothorax. Laboratory Results WBC 73.94 10^3/uL (3.29-11.43) H* 08/08/23 07:20 RBC 3.72 10^6/uL (3.85-5.65) L 08/08/23 07:20 Hgb 10.60 g/dL (11.27-16.99) L 08/08/23 07:20 Hct 36.6 % (37-53) L 08/08/23 07:20 MCV 98.4 fl (82-101) 08/08/23 07:20 MCH 28.5 pg (27-33) 08/08/23 07:20 MCHC 29.0 g/dL (30-55) L 08/08/23 07:20 RDW 15.9 % (12.1-15.1) H 08/08/23 07:20 Plt Count 258 10^3/cmm (157-399) 08/08/23 07:20 MPV 10.5 fL (7.4-10.4) H 08/08/23 07:20 Neut % (Auto) 16.2 % 08/08/23 07:20 Lymph % (Auto) 81.4 % 08/08/23 07:20 [place] % (Auto) 1.1 % 08/08/23 07:20 Eos % (Auto) 0.1 % 08/08/23 07:20 Baso % (Auto) 0.1 % 08/08/23 07:20 Neut # (Auto) 11.98 10^3/uL (1.8-7.7) H 08/08/23 07:20 Lymph # (Auto) 60.2 10^3/uL (0.8-4.8) H 08/08/23 07:20 [place] # (Auto) 0.8 10^3/uL (0.2-0.9) 08/08/23 07:20 Eos # (Auto) 0.1 10^3/uL (0.0-0.8) 08/08/23 07:20 Baso # (Auto) 0.1 10^3/uL (0.0-0.1) 08/08/23 07:20 Nucleated RBC % (auto) 0 % 08/08/23 07:20 Nucleated RBCs # 0.0 /100WBC 08/08/23 07:20 Peripher Smr Path Cons Sent for review 07/29/23 12:04 PT 17.10 SECONDS (12.1-14.9) H 07/31/23 02:50 INR 1.34 (0.8-1.2) H 07/31/23 02:50 APTT 36.2 SECONDS (23.9-36.7) 08/02/23 11:31 Fibrinogen 1247 mg/dL (174-498) H 07/31/23 02:50 Fibrin Degrad Products 5 mcg/mL (LESS THAN 5) H 07/31/23 04:19 D-Dimer 4.74 ug/mLFEU (0-0.59) H 07/31/23 10:34 Specimen Type Arterial 08/08/23 08:15 Sample Site Radial, left 08/08/23 08:15 O2 Sat Pulse Oximetry 93.5 % 08/05/23 20:30 ABG pH 7.39 (7.35-7.45) 08/08/23 08:15 ABG pCO2 45.2 mmHg (35-45) H 08/08/23 08:15 ABG pO2 61.6 mmHg (80.0-100.0) L 08/08/23 08:15 ABG PO2/FiO2 Ratio 0 08/06/23 08:04 ABG HCO3 27.6 mmol/L (22-26) H 08/08/23 08:15 ABG O2 Saturation 93.4 08/08/23 08:15 ABG Base Excess 2.3 mmol/L (-2.0-2.0) H 08/08/23 08:15 Gnearo Test Pos 08/08/23 08:15 A-a O2 Gradient 4.3 mmHg (5-10) L 08/08/23 08:15 Hematocrit 31.4 % (42-52) L 08/08/23 08:15 Hgb O2 Saturation 91.4 % (95-100) L 08/08/23 08:15 Carboxyhemoglobin 1.7 %THgb (0.4-20.1) 08/08/23 08:15 Methemoglobin 0.3 % (0.4-1.5) L 08/08/23 08:15 Total Hemoglobin 10.2 g/dL (14-18) L 08/08/23 08:15 Sodium 138.0 mmol/L (131-143) 08/08/23 08:15 Potassium 4.1 mmol/L (3.5-5.0) 08/08/23 08:15 Glucose 191.0 mg/dL (70-115) H 08/08/23 08:15 Ionized Calcium 1.1 mmol/L (1.1-1.4) 08/08/23 08:15 O2 Delivery Device Nc 08/08/23 08:15 O2 Liters/Min 4.0 % 08/08/23 08:15 FiO2 30.0 % 08/06/23 08:04 Mode BiPAP 03/0208/06/23 08:04 Specimen Drawn By Nayana 08/06/23 08:04 Camera Repairer ID Michael 08/08/23 08:15 Sodium 136 mmol/L (136-145) 08/09/23 02:43 Potassium 4.6 mmol/L (3.5-5.1) 08/09/23 02:43 Chloride 97 mmol/L (98-107) L 08/09/23 02:43 Carbon Dioxide 24 mmol/L (22-29) 08/09/23 02:43 Anion Gap 19.6 (5-19) H 08/09/23 02:43 BUN 71 mg/dL (8-23) H 08/09/23 02:43 Creatinine 3.2 mg/dL (0.7-1.2) H 08/09/23 02:43 GFR Calculation Not Reportable 08/09/23 02:43 Glucose 207 mg/dL (65-115) H 08/09/23 02:43 POC Glucose 222 mg/dL (70-110) H 08/09/23 06:42 Estimat Average Glucose 157 07/29/23 12:04 Hemoglobin A1c 7.1 % (4.0-6.0) H 07/29/23 12:04 Calculated Osmolality 309 mOsm/kg (285-295) H 08/09/23 02:43 Lactic Acid 2.1 mmol/L (0.5-2.2) 07/29/23 12:04 Lactic Acid (Sepsis) 1.8 mmol/L (0.5-2.2) 07/29/23 14:24 Lactate 0.9 mmol/L (0.5-2.2) 08/05/23 11:52 Uric Acid 13.8 mg/dL (3.4-7.0) H 07/31/23 10:34 Calcium 7.8 mg/dL (8.5-10.5) L 08/09/23 02:43 Phosphorus 7.9 mg/dL (2.5-4.5) H* 07/30/23 06:09 Magnesium 2.7 mg/dL (1.7-2.3) H 07/30/23 06:09 Total Bilirubin 0.6 mg/dL (0.15-1.2) 07/31/23 02:50 AST 94 U/L (0-40) H 07/31/23 02:50 ALT 56 U/L (0-41) H 07/31/23 02:50 Alkaline Phosphatase 104 U/L (40-130) 07/31/23 02:50 Ammonia 45 umol/L (16-60) 08/05/23 11:52 Lactate Dehydrogenase 300 U/L (135-225) H 07/31/23 02:50 Creatine Kinase 526 U/L (39-308) H* 08/01/23 02:29 Troponin T Baseline 252 ng/L (0-15) H* 07/31/23 10:34 Troponin T 120 Minute 247.6 ng/L (0-15) H 07/31/23 13:12 Delta Troponin T -4.4 ABS# (0-10) L 07/31/23 13:12 Troponin T Hi Sens 6Hr 244.5 ng/L (0-15) H 07/31/23 16:04 Troponin T Hi Sens 6Hr Delta -7.5 ng/L (0-12) L 07/31/23 16:04 C-Reactive Protein 540.9 mg/L (0.0-4.9) H 07/30/23 06:09 Total Protein 5.0 g/dL (6.1-8.1) L 07/31/23 10:34 Albumin 2.1 g/dL (3.8-4.8) L 07/31/23 10:34 Globulin 3.6 g/dL (1.3-4.6) 07/31/23 02:50 Opwwk-4-Zpepwvirt 0.7 g/dL (0.2-0.3) H 07/31/23 10:34 Wbdpi-0-Vumhmqwfz 1.3 g/dL (0.5-0.9) H 07/31/23 10:34 Dcwg-3-Tpmglkla 0.3 g/dL (0.4-0.6) L 07/31/23 10:34 Ryqw-3-Hlbjhema 0.3 g/dL (0.2-0.5) 07/31/23 10:34 Gamma Globulins 0.3 g/dL (0.8-1.7) L 07/31/23 10:34 Abnorm Protein Band 1 0.2 g/dL (NONE DETECTED) H 07/31/23 10:34 Lipase 21 U/L (13-60) 07/29/23 12:04 Vitamin B12 259 pg/mL (232-1245) 07/29/23 12:02 Urine Color Yellow (Yellow) 07/29/23 11:58 Urine Appearance Sl hazy (CLEAR) A 07/29/23 11:58 Urine pH 5 (5-7) 07/29/23 11:58 Ur Specific [place] 1.020 (1.005-1.030) 07/29/23 11:58 Urine Protein 2+ (Negative) H 07/29/23 11:58 Urine Glucose (UA) 2+ (Normal) H 07/29/23 11:58 Urine Ketones Negative (Negative) 07/29/23 11:58 Urine Blood 3+ (Negative) H 07/29/23 11:58 Urine Nitrate Negative (Negative) 07/29/23 11:58 Urine Bilirubin Neg (Negative) 07/29/23 11:58 Urine Urobilinogen Neg mg/dL (Negative) 07/29/23 11:58 Ur Leukocyte Esterase Negative (Negative) 07/29/23 11:58 Urine RBC 5-10 /hpf (0-2) H 07/29/23 11:58 Urine WBC 0-4 /hpf (0-5) H 07/29/23 11:58 Ur Squamous Epith Cells 0-4 /hpf (0-5) H 07/29/23 11:58 Amorphous Sediment 1+ /hpf 07/29/23 11:58 Urine Bacteria 2+ /hpf (NONE) H 07/29/23 11:58 Hyaline Casts 0-4 /lpf H 07/29/23 11:58 Coarse Granular Casts 5-10 /lpf H 07/29/23 11:58 Urine Mucus Trace /hpf 07/29/23 11:58 Ur Random Microalbumin 22 ug/dL (0-20) H 07/31/23 11:59 Ur Random Sodium 19 mmol/L 07/31/23 11:59 Ur Random Potassium 40 mmol/L 07/31/23 11:59 Ur Random Chloride 11 mmol/L 07/31/23 11:59 Urine Creatinine 62 mg/dL (39-259) 07/31/23 11:59 Microalb/Creat Ratio 355 mg/dL (0-20) H 07/31/23 11:59 U Abnormal Prot Band 2 Not Reportable 07/31/23 10:34 U Abnormal Prot Band 3 Not Reportable 07/31/23 10:34 Serum Ketones Negative (Negative) 07/29/23 12:04 Pro Electrophoresis Int See note 07/31/23 10:34 FREDDY Screen Negative (NEGATIVE) 07/31/23 10:34 Hep Bs Antigen Non-reactive (Nonreactive) 08/02/23 04:33 Hep Bs Antibody < 3.5 (11.5-1000) L 08/02/23 04:33 Vitals Last Vital Signs Temp 100.0 F H 08/09/23 08:49 Pulse 119 H 08/09/23 08:49 Resp 18 08/09/23 08:49 BP 169/70 08/09/23 08:49 Pulse Ox 92 08/09/23 08:02 O2 Del Method Nasal Cannula 08/09/23 08:02 O2 Flow Rate 4 08/09/23 08:02 FiO2 30 08/06/23 15:44 Discharge Plan Discharge Patient Disposition: Xfer SNF Condition: Stable Prescriptions: Continued esomeprazole magnesium 40 mg capsule,delayed release(DR/EC) 40 mg PO DAILY allopurinol 100 mg tablet 100 mg PO DAILY clopidogrel [Plavix] 75 mg tablet 75 mg PO DAILY levothyroxine 100 mcg capsule 100 mcg PO DAILY Humulin 70/30 U-100 Insulin 100 unit/mL (70-30) suspension 50 unit SUBCUT DAILY fluticasone propionate 50 mcg/actuation spray,suspension 1 spray INTRANASAL DAILY nitroglycerin [Nitro-Dur] 0.4 mg/hr patch 24 hour 1 patch TRANSDERMA DAILY aspirin 81 mg tablet,delayed release (DR/EC) 81 mg PO DAILY bumetanide 1 mg tablet 1 mg PO BID Rx Instructions: 2 TABS IN THE MORNING 1 TAB AT NIGHT finasteride 5 mg tablet 5 mg PO DAILY Qty: 90 3RF cetirizine 10 mg tablet 10 mg PO DAILY alfuzosin 10 mg tablet extended release 24 hr 10 mg PO DAILY Discontinued glipizide 10 mg tablet 10 mg PO DAILY spironolactone 25 mg tablet 25 mg PO DAILY gabapentin 400 mg capsule 400 mg PO DAILY Referrals: Jessi Trinidad [Primary Care Provider] - Discharge Diet: GI Soft Patient Instructions: Dialysis Diet (DC), Hemodialysis (DC) Coding Level of Care Code Acute Code for [facility] Fwd Diagnoses ROSCOE (acute kidney injury) N17.9
[2023-08-09 10:45] LABS: Glucose Point of Care 155 mg/dL (70-110)
[2023-08-09] MEDS: hyDRALAzine 10 mg Tablet 25 MG PO (11:29)
[2023-08-09] MEDS: sennosides-docusate Tablet 1 TAB PO (11:29)
[2023-08-09] MEDS: aspirin 81 mg EC Tablet PO (11:30)
--- NOTE | 2023-08-09 11:33 | P.PN_ITS ---
Subjective 2 Subjective: Lethargic and fatigued Continue thyroxine Low-grade fever noted Spoke with the daughter who wants to continue with palliative care and dialysis for now Vitals/I&O/Wt Last Vital Signs Temp 100.0 F H 08/09/23 08:49 Pulse 119 H 08/09/23 08:49 Resp 18 08/09/23 08:49 BP 169/70 08/09/23 08:49 Pulse Ox 92 08/09/23 08:02 O2 Del Method Nasal Cannula 08/09/23 08:02 O2 Flow Rate 4 08/09/23 08:02 FiO2 30 08/06/23 15:44 08/08/23 08/09/23 08/09/23 22:59 06:59 14:59 Intake Total 240 / 290 Output Total 300 / 300 400 / 700 Balance -60 / -10 -400 / -410 Weight last 48 hrs Weight 81.692 kg Weight 84.005 kg Physical Exam 2 Narrative: Fatigued and lethargic Awake and alert GCS 15 Able to answer simple questions Laying supine Hypertensive Tachycardic Urinary Catheter Management: Hernandez: Cath Placed During This Visit: yes Reason for Continuing Indwelling Catheter: Other Urinary Catheter Date of Insertion: 07/30/23 Urinary Catheter Time of Insertion: 12:31 Data 08/08/23 07:20 08/09/23 02:43 A&P Assessment and plan (1) NSTEMI (non-ST elevated myocardial infarction): (2) Constipation: (3) Hyperglycemia: (4) Acute worsening of stage 3 chronic kidney disease: (5) ATN (acute tubular necrosis): (6) Uremia: (7) CLL (chronic lymphocytic leukemia): (8) Peripheral neuropathy: Plan Will keep him on IV Zosyn Adjust antihypertensive regimen Low-grade fever Daughter wants to continue with palliative care and dialysis for now Spoke with Dr. Renteria/nephrology A-fib RVR I will add low-dose Eliquis along increased dose of metoprolol Attestations 2 Medical Necessity Statement*: Continue medical management Diagnoses NSTEMI (non-ST elevated myocardial infarction) I21.4 Constipation K59.00 Hyperglycemia R73.9 Acute worsening of stage 3 chronic kidney disease N18.30 ATN (acute tubular necrosis) N17.0 Uremia N19 CLL (chronic lymphocytic leukemia) C91.10 Peripheral neuropathy G62.9
--- NOTE | 2023-08-09 11:36 | XRR_ITS ---
PROCEDURE INFORMATION: Exam: XR Chest Exam date and time: 08/09/2023 12:37 PM Age: 82 years old Clinical indication: Condition or disease; Lung condition and disease; Pneumonia; Prior surgery; Surgery date: 6+ months; Surgery type: Dialysis port; Additional info: Pna TECHNIQUE: Imaging protocol: Radiologic exam of the chest. Views: 1 view. COMPARISON: 1. CR XR chest 1V portable [id number] 08/03/2023 12:23 PM 2. CR (CHEST, ) 07/31/2023 5:19 AM FINDINGS: Tubes, catheters and devices: Stable right IJ central venous catheter terminates at the lower SVC. Lungs: Improved retrocardiac left lower lobe consolidation. Mild bibasilar platelike atelectasis versus scarring. Pleural spaces: No substantial pleural effusion or pneumothorax. Heart/Mediastinum: Unremarkable. No cardiomegaly. Vasculature: Aortic atherosclerotic calcification. Bones/joints: Degenerative changes along the spine and acromioclavicular joints. XR/XR chest 1V portable [id number] IMPRESSION: 1. Improved left lower lobe pneumonia. 2. Stable right IJ CVC terminates in the lower SVC.
[2023-08-09] MEDS: insulin lispro 100 unit/1 mL SUBCUT (11:48)
[2023-08-09] MEDS: metoprolol tartrate 25 mg Tablet PO (11:48)
--- NOTE | 2023-08-09 11:54 | PC.HD ---
Two minutes prior to end of dialysis treatment, patient's BP dropped to 56/38, and patient became obtunded and difficult to arouse. During rinseback, this RN administered 100 mL NSS. Post-dialysis BP was 118/50, although patient was still difficult to arouse. He would open his eyes to loud speaking and responded with a nod. Food Or Baggage Handling [place] and primary RN aware.
--- NOTE | 2023-08-09 12:41 | PC.NURSE ---
HOLD BRAGG REMOVAL UNTIL DISCHARGE TO LONG TERM PER MD.
[2023-08-09] MEDS: piperacillin-tazobactam 3.375 GM in sodium chloride 0.9% (plus) 50 ML IV (13:06)
--- NOTE | 2023-08-09 14:00 | PC.NURSE ---
Decline in pt status noted. Mottling up to thigh. Agonal breathing. Skin cool to touch. HR decreases to 30BPM. Notified Dr. Saeed. Calls Naya, daughter, to notify and encourage visit.
--- NOTE | 2023-08-09 16:50 | PC.NURSE ---
note Patient's telemetry showed bradycardia, so checked on the patient. Auscaltated no heart sounds and patient was agonal breathing. Family at bedside, bereavement cart at bedside. 1647 pronounced with another nurse.
--- NOTE | 2023-08-09 16:54 | PC.NURSE ---
supervisor production notified. [facility] called.
--- NOTE | 2023-08-09 16:59 | PC.NURSE ---
MTS notified of Patient passing. Full release from [facility] and [facility].
--- NOTE | 2023-08-09 17:04 | PC.NURSE ---
MTS stated not a candidate for donation. home picked to be [facility] in [place]. Will Call when family is ready.
--- NOTE | 2023-08-09 18:37 | P.DES_ITS ---
Discharge Providers DDS Date of Admission: 07/29/23 14:08 Date Summary Completed: 08/09/23 Attending Provider at Admission: Korey Saeed MD Time of : 04:47 Attending Provider at Discharge: Korey Saeed MD Primary Care Provider: Jessi Trinidad Diagnoses Hospital Diagnoses (1) ROSCOE (acute kidney injury): Reason for Visit Reason for Visit hyperglycemia, fall 2 days Summary Date and Time of Date of : 08/09/23 Time of : 04:47 Summary Summary: 82-year male who was admitted for management evaluation of generalized weakness and fatigue he was diagnosed with non-STEMI, CLL, pneumonia, he was requiring 4 to 5 L of oxygen, developed ATN and required tunneled dialysis catheter placement and initiation of dialysis, patient has not done well at all since his admission his mentation has declined he has not gotten out of bed on his own he is requiring maximum assist mentation is fluctuating, p.o. intake is poor we do think he is not going to do well with dialysis but family is stating that they would like to continue hemodialysis but will change his CODE STATUS to DNR/DNI/palliative care. In case he is not able to tolerate dialysis then they will switch him to hospice care. Mr. Matos finished antibiotic regimen during hospitalization, he suffered from aspiration pneumonia, finished Augmentin course as well. Please note cardiology was consulted for non-STEMI, they recommended medical management because of his poor medical condition. Spoke with the family multiple times with details from day 1 because we diagnosed him with CLL, Dr. Sarah has evaluated him, he was evaluated Dr. Fountain cardiology physician,, none master tax advisor They are all in agreement that patient carries a guarded prognosis Later in the day patient worsened he was made hospice and he at 4:47 PM Additional Data Confirmation of as documented by pronouncing clinician: no pulse Family: at bedside Additional persons at bedside: nursing staff Was code activated?: No Autopsy requested?: No Advance directives?: No Hospice patient?: Yes Discharge Plan Discharge Patient Disposition: Condition: Stable Prescriptions: New hydralazine 50 mg tablet 50 mg PO BID Qty: 60 0RF losartan 50 mg tablet 50 mg PO DAILY Qty: 30 0RF levofloxacin 750 mg tablet 750 mg PO Q48H 7 Days Qty: 4 0RF amlodipine 10 mg tablet 10 mg PO DAILY Qty: 60 0RF amoxicillin-pot clavulanate 875-125 mg tablet 1 tab PO BID Qty: 14 0RF Continued esomeprazole magnesium 40 mg capsule,delayed release(DR/EC) 40 mg PO DAILY allopurinol 100 mg tablet 100 mg PO DAILY clopidogrel [Plavix] 75 mg tablet 75 mg PO DAILY levothyroxine 100 mcg capsule 100 mcg PO DAILY Humulin 70/30 U-100 Insulin 100 unit/mL (70-30) suspension 50 unit SUBCUT DAILY fluticasone propionate 50 mcg/actuation spray,suspension 1 spray INTRANASAL DAILY nitroglycerin [Nitro-Dur] 0.4 mg/hr patch 24 hour 1 patch TRANSDERMA DAILY aspirin 81 mg tablet,delayed release (DR/EC) 81 mg PO DAILY bumetanide 1 mg tablet 1 mg PO BID Rx Instructions: 2 TABS IN THE MORNING 1 TAB AT NIGHT finasteride 5 mg tablet 5 mg PO DAILY Qty: 90 3RF cetirizine 10 mg tablet 10 mg PO DAILY alfuzosin 10 mg tablet extended release 24 hr 10 mg PO DAILY Discontinued glipizide 10 mg tablet 10 mg PO DAILY spironolactone 25 mg tablet 25 mg PO DAILY gabapentin 400 mg capsule 400 mg PO DAILY Referrals: Jessi Trinidad [Primary Care Provider] - Discharge Diet: GI Soft Patient Instructions: Dialysis Diet (DC), Hemodialysis (DC) DS Attestations Time Spent in /Discharge Care*: greater than 30 min Quality - AMI: AMI present?: No Quality - Stroke: CVA present?: No Quality - VTE: VTE present?: No Coding Level of Care Code Acute Code for [facility] Diagnoses ROSCOE (acute kidney injury) N17.9
--- NOTE | 2023-08-09 18:48 | PC.NURSE ---
Family leaves. All lines removed. [facility] notified.
--- NOTE | 2023-08-09 22:37 | PC.NURSE ---
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
== END 2023-08-09 20:00 | disposition expired | DRG 840 ==
LOC: ER 11:43 → MEDSURG 15:48 → ICU 08-03 09:15 → MEDSURG 08-06 17:31
PROVIDERS: Hospitalist; Internal Medicine; Surgery; Admitting Provider Internal Medicine; Emergency Provider Family Medicine; PCP Registered Nurse; Visit Provider Internal Medicine
PROC: 0JH63XZ Insertion of Tunneled Vascular Access Device into Chest Subcutaneous Tissue and Fascia, Percutaneous Approach (ICD-10-PCS; principal; 2023-08-03 09:55)
DX: C91.10 Chronic lymphocytic leukemia of B-cell type not having achieved remission (principal); I21.4 Non-ST elevation (NSTEMI) myocardial infarction; J69.0 Pneumonitis due to inhalation of food and vomit; J96.02 Acute respiratory failure with hypercapnia; J96.01 Acute respiratory failure with hypoxia; N17.0 Acute kidney failure with tubular necrosis; M62.82 Rhabdomyolysis; I13.0 Hypertensive heart and chronic kidney disease with heart failure and stage 1 through stage 4 chronic kidney disease, or unspecified chronic kidney disease; I50.32 Chronic diastolic (congestive) heart failure; I48.20 Chronic atrial fibrillation, unspecified; N13.8 Other obstructive and reflux uropathy; E87.20 Acidosis, unspecified; W18.30XA Fall on same level, unspecified, initial encounter; I25.10 Atherosclerotic heart disease of native coronary artery without angina pectoris; N18.30 Chronic kidney disease, stage 3 unspecified; E11.22 Type 2 diabetes mellitus with diabetic chronic kidney disease; E66.01 Morbid (severe) obesity due to excess calories; E78.5 Hyperlipidemia, unspecified; K21.9 Gastro-esophageal reflux disease without esophagitis; G47.33 Obstructive sleep apnea (adult) (pediatric); E03.9 Hypothyroidism, unspecified; E11.43 Type 2 diabetes mellitus with diabetic autonomic (poly)neuropathy; K31.84 Gastroparesis; E11.51 Type 2 diabetes mellitus with diabetic peripheral angiopathy without gangrene; E11.65 Type 2 diabetes mellitus with hyperglycemia; E11.40 Type 2 diabetes mellitus with diabetic neuropathy, unspecified; N40.1 Benign prostatic hyperplasia with lower urinary tract symptoms; R33.8 Other retention of urine; N41.1 Chronic prostatitis; R00.0 Tachycardia, unspecified; Z66 Do not resuscitate; K59.00 Constipation, unspecified; E87.5 Hyperkalemia; F03.90 Unspecified dementia, unspecified severity, without behavioral disturbance, psychotic disturbance, mood disturbance, and anxiety; N20.0 Calculus of kidney; E86.0 Dehydration; Z95.5 Presence of coronary angioplasty implant and graft; Z79.82 Long term (current) use of aspirin; Z79.02 Long term (current) use of antithrombotics/antiplatelets; Z79.84 Long term (current) use of oral hypoglycemic drugs; Z79.4 Long term (current) use of insulin; Z68.26 Body mass index [BMI] 26.0-26.9, adult; Z51.5 Encounter for palliative care; Z86.16 Personal history of COVID-19; Z87.891 Personal history of nicotine dependence
CPT/HCPCS: 36415; 36416; 36600; 51702; 70450; 71045; 73030; 73060; 74176; 77001; 78452; 80048; 80051; 80053; 81001; 82009; 82044; 82140; 82330; 82436; 82550; 82607; 82803; 82805; 82962; 83036; 83605; 83615; 83690; 83735; 84100; 84133; 84155; 84165; 84300; 84484; 84550; 85025; 85362; 85378; 85384; 85610; 85730; 86038; 86140; 86706; 87086; 87340; 90471; 90715; 90935; 93005; 93017; 93306; 94640; 94660; 96372; 96375; 96376; 97110; 97116; 97161; 97530; 99285; A9500; C1750; J0131; J0280; J0612; J0696; J1644; J1815; J1940; J2060; J2405; J2543; J2704; J2785; J7030; J7070; Q3014